=== PATIENT | female | born 1955 | race Caucasian/White ===

== ENCOUNTER → 2016-08-25 | Outpatient (CLI) | payer OTHER ==
--- NOTE | 2016-08-26 11:41 | MM ---
Reason for exam: screening (asymptomatic). Last mammogram was performed 3 years and 11 months ago. History: Patient is postmenopausal. Took estrogen for 8 years beginning at age 43. Physical Findings: A clinical breast exam by your physician is recommended on an annual basis and results should be correlated with mammographic findings. MG Screening Mammo w CAD Bilateral CC and MLO view(s) were taken. Prior study comparison: September 15, 2012, [facility] DIGITAL LEFT BREAST MAMMOGRAM w/CAD. September 06, 2012, bilateral digital screening mammo w/CAD. The breast tissue is heterogeneously dense. This may lower the sensitivity of mammography. There is a distortion in the left upper outer quadrant, increased from previous. This finding is changed when compared with previous exams. ASSESSMENT: Incomplete: need additional imaging evaluation, BI-RAD 0 RECOMMENDATION: Special view mammogram of the left breast. If lesion persists on supplemental views, image directed ultrasound is recommended. [facility] will attempt to contact patient to return for supplemental views and ultrasound if indicated.
--- NOTE | 2016-08-27 13:47 | BD ---
EXAMINATION TYPE: MG DEXA axial skeleton. DATE OF EXAM: 08/25/2016 5:05 PM COMPARISON: NONE CLINICAL HISTORY: 60-year-old female age-related osteoporosis. Weight: 5ft 3inches Weight: 234 FRAX RISK QUESTIONS: Alcohol (3 or more units per day): Yes Family History (Parent hip fracture): Yes Glucocorticoids (More than 3mos): No (Ex: prednisone, prednisolone, methylprednisolone, dexamethasone, and hydrocortisone). History of Fracture in Adulthood: No Secondary Osteoporosis: 1. Type 1 Diabetes: No 2. Hyperthyroidism: No 3. Menopause before 45: Yes 4. Malnutrition: No 5. Chronic liver disease: No Rheumatoid Arthritis: No Current Tobacco Use: No RISK FACTORS HISTORY OF: Family History of Osteoporosis: Yes Drink Alcohol: Yes Active: No Postmenopausal woman: Total Hysterectomy at Age 43. Take estrogen and/or progesterone medications: Took for 10 years after surgery. No longer taken. MEDICATIONS: Additional Medications: LIPITOR, LISINOPRIL, EFFEXOR, PREVACID, GOUT PREVENTATIVE MEDS, APPETITE SUPR ESSANT. Additional History: EXAM MEASUREMENTS: Bone mineral densitometry was performed using the [employer]. Bone mineral density as measured about the Lumbar spine is: ----- L1-L4(G/cm2): 1.135 T Score Values are as follows: ----- L2: -0.6 ----- L3: -0.4 ----- L4: -0.7 ----- L1-L4: -0.4 Bone mineral density has: Increased 9.9% since study of: 2009 Bone mineral density about the R hip (g/cm2): 0.820 Bone mineral density about the L hip (g/cm2): 0.858 T Score values are as follows: -----R Neck: -1.6 -----L Neck: -1.3 -----R Intertrochanter: -0.8 -----L Intertrochanter: -0.4 Bone mineral density has: Increased 3.7 % since study of: 2009 IMPRESSION: Osteopenia as indicated by T score values in both hips. There is slightly increased risk of fracture and the patient may be considered for treatment. Re-Screen 2-5 years. NOTE: T-SCORE=SD OF THE YOUNG ADULT MEAN.
== END | disposition home or self-care (01) ==
LOC: RADBDWWP 16:13
PROVIDERS: ATTEND Internal Medicine Geriatric Medicine
DX: Z12.31 Encounter for screening mammogram for malignant neoplasm of breast (principal); R92.2 Inconclusive mammogram; M85.80 Other specified disorders of bone density and structure, unspecified site
CPT/HCPCS: 77080; G0202

== ENCOUNTER → 2016-09-03 | Outpatient (CLI) | payer OTHER ==
--- NOTE | 2016-09-06 11:37 | MM ---
Reason for exam: additional evaluation requested from abnormal screening. Last mammogram was performed less than 1 month ago. History: Patient is postmenopausal. Took estrogen for 8 years beginning at age 43. Physical Findings: Nurse Summary: A 2 x 4 cm nodule in the left breast 12 - 4 o'clock (nurse ts). MG Work Up Mamm w CAD LT LM, spot compression CC, and spot compression MLO view(s) were taken of the left breast. Prior study comparison: August 25, 2016, bilateral MG screening mammo w CAD. September 15, 2012, [facility] DIGITAL LEFT BREAST MAMMOGRAM w/CAD. Finding: Architectural distortion in the upper outer quadrant of the left breast that persists. These results were verbally communicated with the patient and result sheet given to the patient on 09/03/16. ASSESSMENT: Incomplete: need additional imaging evaluation, BI-RAD 0 RECOMMENDATION: Ultrasound of the left breast.
--- NOTE | 2016-09-06 11:38 | USB ---
Reason for exam: additional evaluation requested from abnormal screening. History: Patient is postmenopausal. Took estrogen for 8 years beginning at age 43. US Breast Workup Limited LT Left breast ultrasound demonstrates a 6.3 x 3.7 x 2.6cm solid, hypoechoic, strong shadowing lesion at 2-5 o'clock. These results were verbally communicated with the patient and result sheet given to the patient on 09/03/16. ASSESSMENT: Highly suggestive of malignancy, BI-RAD 5 RECOMMENDATION: Ultrasound core biopsy of the left breast. Called Dr. Comer with mammographic findings and has scheduled an appointment for the patient for 09/14/16 at 12:[address] Melendez. PRELIMINARY REPORT CALLED AND FAXED TO DR. MELENDEZ ON 09/06/16. AT 300/TMP.
== END | disposition home or self-care (01) ==
LOC: RADMAMWWP 13:52
PROVIDERS: ATTEND Internal Medicine Geriatric Medicine
DX: R92.2 Inconclusive mammogram (principal); R92.8 Other abnormal and inconclusive findings on diagnostic imaging of breast
CPT/HCPCS: 76642; G0206

== ENCOUNTER → 2016-09-17 | Day surgery (SDC) | payer OTHER ==
[~2016-09-17] MED LIST: BACITRACIN OINT 1 EACH PACKET TOPICAL ONE; LIDOCAINE 1% INJ 10MG/ML (20 ML MDV) ONE
--- NOTE | 2016-09-17 10:29 | USB ---
EXAMINATION TYPE: US biopsy breast VAD LT, US biopsy breast add'l VAD LT, MG diagnostic mammo LT wo CAD DATE OF EXAM: 09/17/2016 10:13 AM CLINICAL HISTORY: R92.8 Abn Mammogram. TECHNIQUE: Ultrasound guided core biopsy of left breast mass 2-5 position as well as an abnormal-appearing left axillary lymph node. COMPARISON: NONE FINDINGS: The procedure of ultrasound guided core biopsy was explained to the patient. Benefits, alternatives, and risks were discussed. An informed consent was then obtained. The patient was placed in supine positioning for imaging and for the procedure. The overlying skin was prepped and draped in usual sterile fashion. Lidocaine buffered with bicarbonate was used as anesthetic into the skin and subcutaneous tissue up to areas of concern in the left breast. 2 nicks were made with surgical scalpel. Under ultrasound guidance, a 12-gauge vacuum assisted biopsy gun device was used to obtain 4 core samples at the left breast mass followed by 3 core samples of abnormal-appearing left axillary lymph node. 2 biopsy clips were deployed following tissue diagnosis. Verification mammogram demonstrates appropriate deployment. The patient tolerated the procedure well without any immediate complication. The patient was kept in the radiology department for short stay after the procedure and then discharged home in stable condition. IMPRESSION: Successful, uncomplicated ultrasound guided core biopsy of areas of concern in the left breast and left axilla, full pathology results to follow. Pathology Results: Malignant A. BREAST, LEFT, CORE BIOPSY: INVASIVE LOBULAR CARCINOMA AND LOBULAR CARCINOMA IN SITU (LCIS). SEE SURGICAL PATHOLOGY CANCER CASE SUMMARY AND COMMENT. B. LEFT AXILLA, CORE BIOPSY: LYMPH ODE POSITIVE FOR METASTATIC CARCINOMA CONSISTENT WITH LOBULAR BREAST PRIMARY. SEE COMMENT. Recommendation Surgical consult of the left breast. DIAMOND
== END ==
LOC: RADUSWWP 09:00
PROVIDERS: ATTEND Surgery
DX: C50.912 Malignant neoplasm of unspecified site of left female breast (principal); C77.3 Secondary and unspecified malignant neoplasm of axilla and upper limb lymph nodes; R92.8 Other abnormal and inconclusive findings on diagnostic imaging of breast
CPT/HCPCS: 38505; 88305; 88342; 88341; 76942; 19083; G0206; A4648; J2001; 19084

== ENCOUNTER → 2016-10-09 | Outpatient (CLI) | payer OTHER ==
--- NOTE | 2016-10-11 09:05 | PE ---
Nuclear medicine PET/CT HISTORY: Breast carcinoma Patient received 14.6 mCi F-18 FDG intravenously and delayed scanning performed from the skull base t o the mid thighs. Localization and attenuation correction CT scan was also performed. Correlation to prior ultrasound breast 09/03/2016 Neck and chest: There is no evident adenopathy. No suspicious hypermetabolic uptake. No suspicious marycruz ng mass, no pleural or pericardial effusion. Shotty nodes are present within the bilateral axilla, me diastinum. Only mild increased uptake associated with the left breast in the area of patient's biopsy compatible with breast carcinoma, SUV is 2. Abdomen pelvis: No retroperitoneal adenopathy, no evident liver mass. Patient is post cholecystectomy . No suspicious hypermetabolic uptake. Left adrenal mass shows low attenuation and measures approxima tely 5 cm and may represent adenoma, only mild hypermetabolic uptake. Probable physiologic activity associated with the colon. Osseous structures within normal limits. IMPRESSION: Findings compatible with patient's history of breast carcinoma.
== END | disposition home or self-care (01) ==
LOC: RADPETMAIN 13:56
PROVIDERS: ATTEND Internal Medicine Hematology & Oncology
DX: C50.919 Malignant neoplasm of unspecified site of unspecified female breast (principal)
CPT/HCPCS: 78815; A9552

== ENCOUNTER → 2017-10-21 | Outpatient (CLI) | payer OTHER ==
--- NOTE | 2017-10-21 16:29 | CT ---
EXAMINATION TYPE: CT ChestAbdPelvis w con DATE OF EXAM: 10/21/2017 COMPARISON: Nuclear medicine PET/CT 10/09/2016 HISTORY: Breast Cancer, suspect mets CT DLP: 2233 mGycm Automated exposure control for dose reduction was used. CONTRAST: CT scan of the chest, abdomen and pelvis is performed with Oral Contrast and with IV Contrast, patien t injected with 100 ml mL of Isovue 300. FINDINGS: Left chest shows posttreatment changes with skin thickening in the left breast, multiple bermudez rgical clips, low-attenuation lobular configuration likely secondary to lumpectomy change. Stranding in the soft tissues also noted. Left axilla shows probable post biopsy change. LUNGS: In the region of the patient's treated breast cancer there is some increased density in the bermudez bpleural location of the left upper lobe which is thought likely to be due to post radiation change. No pleural or pericardial effusion. MEDIASTINUM: There are no greater than 1 cm hilar or mediastinal lymph nodes. No pericardial effusi on is seen. AORTA: No significant abnormality is seen. OTHER: No additional significant abnormality is seen. LIVER/GB: Liver shows low attenuation likely due to hepatic steatosis, the gallbladder is absent, maanda gical clips present in the gallbladder fossa PANCREAS: No significant abnormality is seen. SPLEEN: No significant abnormality is seen. ADRENALS: Large low-attenuation mass associated with the left adrenal gland measures 5.5 cm similar t o prior exam felt likely to represent adenoma, right adrenal gland unremarkable KIDNEYS: Cortical cyst is associated with the right kidney is stable. REPRODUCTIVE ORGANS: Uterus and adnexal structures are not seen.. BOWEL: Duodenal diverticulum present at the head of the pancreas. Appendix is normal. FREE AIR: No Free Air visible. ASCITES: None seen. RETROPERITONEAL ADENOPATHY: No retroperitoneal adenopathy is seen. LYMPH NODES: No greater than 1 cm abdominal or pelvic lymph nodes are appreciated. URINARY BLADDER: No significant abnormality is seen. PELVIC ADENOPATHY: None visualized. OSSEOUS STRUCTURES: Punctate sclerotic foci are scattered within areas within the pelvis and sternum appear stable and are likely benign postop change noted to the left shoulder.. IMPRESSION: Postop changes, posttreatment changes. Metastatic disease is not evident..
== END | disposition home or self-care (01) ==
LOC: RADCTMAIN 07:24
PROVIDERS: ATTEND Internal Medicine Hematology & Oncology
DX: C50.412 Malignant neoplasm of upper-outer quadrant of left female breast (principal); Z98.890 Other specified postprocedural states
CPT/HCPCS: 71260; 74177; Q9967

== ENCOUNTER → 2017-11-25 | Outpatient (CLI) | payer OTHER ==
--- NOTE | 2017-11-28 09:44 | MM ---
Reason for exam: additional evaluation requested from prior study. Last mammogram was performed 1 year and 2 months ago. History: Patient is postmenopausal and has history of breast cancer at age 60. Malignant US biopsy breast VAD LT of the left breast, September 17, 2016. Malignant US biopsy breast add'l VAD LT of the left breast, September 17, 2016. Lumpectomy of the left breast. Radiation therapy of the left breast. Took estrogen for 8 years beginning at age 43. Physical Findings: Nurse Summary: 1 x 1cm nodule in the right breast at 2 o'clock/chemo port scar (nurse ts). MG 3D Diag Mammo W/Cad [facility] Bilateral CC and MLO view(s) were taken. Prior study comparison: September 17, 2016, left breast MG diagnostic mammo LT wo CAD. September 03, 2016, left breast MG work up mamm w CAD LT. The breast tissue is heterogeneously dense. This may lower the sensitivity of mammography. Finding: Architectural distortion in the upper outer quadrant, posterior position of the left breast. 10mm developing asymmetry posterior upper inner quadrant. These results were verbally communicated with the patient and result sheet given to the patient on 11/25/17. ASSESSMENT: Incomplete: need additional imaging evaluation, BI-RAD 0 RECOMMENDATION: Ultrasound of the right breast.
--- NOTE | 2017-11-28 09:48 | USB ---
Reason for exam: additional evaluation requested from abnormal screening. History: Patient is postmenopausal and has history of breast cancer at age 60. Malignant US biopsy breast VAD LT of the left breast, September 17, 2016. Malignant US biopsy breast add'l VAD LT of the left breast, September 17, 2016. Lumpectomy of the left breast. Radiation therapy of the left breast. Took estrogen for 8 years beginning at age 43. US Breast Limited RT Right limited breast ultrasound including focal area of concern, retroareolar and axilla demonstrates a 0.8 x 0.9 x 0.4cm oval, cystic complex lesion at 2 o'clock for which a FNA +/- biopsy is recommended and a 0.4 x 0.3 x 0.3cm oval, cystic lesion at 3 o'clock is recommended. These results were verbally communicated with the patient and result sheet given to the patient on 11/25/17. ASSESSMENT: Suspicious, BI-RAD 4 RECOMMENDATION: Ultrasound core biopsy of the right breast. (+/- FNA) Called Dr. Comer with mammographic findings and has scheduled an appointment for the patient with Dr. Richardson Flores. Biopsy scheduled for 12/08/17 at 12:20. PRELIMINARY REPORT CALLED AND FAXED TO DR. FLORES ON 11/28/17.
== END | disposition home or self-care (01) ==
LOC: RADMAMWWP 10:18
PROVIDERS: ATTEND Internal Medicine Geriatric Medicine
DX: C50.112 Malignant neoplasm of central portion of left female breast (principal); R92.8 Other abnormal and inconclusive findings on diagnostic imaging of breast
CPT/HCPCS: 77062; 77066

== ENCOUNTER → 2017-12-08 | Day surgery (SDC) | payer OTHER ==
[2017-12-08 11:53] VITALS: RESP 16; BMI 40.5
[2017-12-08 13:40] VITALS: BP 141/83; PULSE 70; TEMP 97.9
--- NOTE | 2017-12-08 16:31 | USB ---
EXAMINATION TYPE: US biopsy breast VAD RT DATE OF EXAM: 12/08/2017 CLINICAL HISTORY: R92.8 Abnormal Mammogram. TECHNIQUE: Ultrasound guided core biopsy of right breast. COMPARISON: 11/25/2017 FINDINGS: The procedure of ultrasound guided core biopsy was explained to the patient. Benefits, alternatives, and risks were discussed. An informed consent was then obtained. The patient was placed in supine positioning for imaging and for the procedure. The overlying skin was prepped and draped in usual sterile fashion. Lidocaine buffered with bicarbonate was used as anesthetic into the skin and subcutaneous tissue up to area of concern in the right breast. A jayro was made with surgical scalpel. Under ultrasound guidance, a 12-gauge vacuum assisted biopsy device was used to obtain 4 core samples. Following this, a biopsy clip was left in lesion. The patient tolerated the procedure well without any immediate complication. The patient was kept in the radiology department for short stay after the procedure and then discharged home in stable condition. Surgery reconstructions were discussed with the patient. Patient will follow-up with her physician for results. IMPRESSION: 1. Successful ultrasound-guided core biopsy right breast lesion. Recommendations: 1. Recommendations are pending pathology results. Pathology Results: Benign CORE BIOPSY, RIGHT BREAST: Fat necrosis with chronic active inflammation, foreign body reaction and fibrosis, negative for malignancy. Recommendation Follow up mammogram of the right breast in 6 months. DIAMOND
--- NOTE | 2017-12-09 08:14 | MM ---
Reason for exam: additional evaluation requested from abnormal screening. Last mammogram was performed less than 1 month ago. History: Patient is postmenopausal and has history of breast cancer at age 60. Malignant US biopsy breast VAD LT of the left breast, September 17, 2016. Malignant US biopsy breast add'l VAD LT of the left breast, September 17, 2016. Lumpectomy of the left breast. Radiation therapy of the left breast. Took estrogen for 8 years beginning at age 43. MG Diagnostic Mammo RT Wo CAD CC and LM view(s) were taken of the right breast. Technologist: Devi Alvarez, RT (R)(M) Prior study comparison: November 25, 2017, bilateral MG 3d diag mammo w/cad [facility]. September 17, 2016, left breast MG diagnostic mammo LT wo CAD. ASSESSMENT: Post procedure mammogram for marker placement RECOMMENDATION: Ultrasound of the right breast in 6 months. PENDING PATHOLOGY RESULTS.
== END | disposition home or self-care (01) ==
LOC: RADUSWWP 11:19
PROVIDERS: ATTEND Surgery
DX: N64.1 Fat necrosis of breast (principal); N60.31 Fibrosclerosis of right breast; N61.0 Mastitis without abscess; Z85.3 Personal history of malignant neoplasm of breast; R92.8 Other abnormal and inconclusive findings on diagnostic imaging of breast
CPT/HCPCS: 88305; 77065; 19083; A4648; J2001

== ENCOUNTER → 2018-02-13 | Outpatient (CLI) | payer OTHER ==
[2018-02-13 14:50] LABS: ALT 33 U/L (9-52); AST 26 U/L (14-36); Albumin 4.2 g/dL (3.5-5.0); Alkaline Phosphatase 107 U/L (38-126); Anion Gap 9 mmol/L; Blood Urea Nitrogen 17 mg/dL (7-17); Calcium 9.5 mg/dL (8.4-10.2); Carbon Dioxide 27 mmol/L (22-30); Chloride 106 mmol/L (98-107); Glucose 95 mg/dL (74-99); Potassium 4.2 mmol/L (3.5-5.1); Sodium 142 mmol/L (137-145); Total Bilirubin 0.3 mg/dL (0.2-1.3); Total Protein 6.8 g/dL (6.3-8.2)
== END | disposition home or self-care (01) ==
LOC: LABWHC1 13:34
PROVIDERS: ATTEND Internal Medicine Hematology & Oncology
DX: C50.412 Malignant neoplasm of upper-outer quadrant of left female breast (principal); E78.5 Hyperlipidemia, unspecified; I10 Essential (primary) hypertension; M12.9 Arthropathy, unspecified
CPT/HCPCS: 36415; 80053; 86300

== ENCOUNTER → 2018-05-12 | Outpatient (CLI) | payer OTHER ==
[2018-05-12 12:23] LABS: Basophils % (A) 1 %; Eosinophils # (A) 0.2 k/uL (0-0.7); Eosinophils % (A) 3 %; HCT 43.3 % (34.0-46.0); HGB 13.8 gm/dL (11.4-16.0); Lymphocytes # (A) 1.3 k/uL (1.0-4.8); Lymphocytes % (A) 21 %; MCHC 31.8 g/dL (31.0-37.0); MCV 97.6 fL (80.0-100.0); Mean Platelet Volume 7.2; Monocytes # (A) 0.4 k/uL (0-1.0); Monocytes % (A) 7 %; Neutrophils # (A) 4.1 k/uL (1.3-7.7); Neutrophils % (A) 67 %; Platelet Count 245 k/uL (150-450); RBC 4.44 m/uL (3.80-5.40); RDW 13.6 % (11.5-15.5); WBC 6.1 k/uL (3.8-10.6)
[2018-05-12 16:02] LABS: Albumin 4.5 g/dL (3.80-4.90); Albumin/Globulin Ratio 2.37 (1.20-2.10); Calcium 9.5 mg/dL (8.7-10.3); Globulin 1.9 g/dL (1.6-3.3); LDL Cholesterol,Calculated 102.4 mg/dL (0.0-131.0); Potassium 4.5 mmol/L (3.5-5.5); Total Bilirubin 0.3 mg/dL (0.2-1.2); Total Protein 6.4 g/dL (6.2-8.2); VLDL Calculation 28.6 mg/dL (5.00-40.00)
[2018-05-12 16:08] LABS: T4, Free (Free Thyroxine) 1.1 ng/dL (0.80-1.80)
== END | disposition home or self-care (01) ==
LOC: LABWHC1 10:47
PROVIDERS: ATTEND Internal Medicine Geriatric Medicine
DX: C50.112 Malignant neoplasm of central portion of left female breast (principal); R00.1 Bradycardia, unspecified; E78.00 Pure hypercholesterolemia, unspecified
CPT/HCPCS: 36415; 80053; 80061; 84439; 84443; 85025

== ENCOUNTER → 2018-05-22 | Outpatient (CLI) | payer OTHER ==
--- NOTE | 2018-05-26 11:42 | USB ---
Reason for exam: follow-up at short interval from prior study. History: Patient is postmenopausal and has history of breast cancer at age 60. Benign US biopsy breast VAD RT of the right breast, December 08, 2017. Malignant US biopsy breast VAD LT of the left breast, September 17, 2016. Malignant US biopsy breast add'l VAD LT of the left breast, September 17, 2016. Lumpectomy of the left breast. Radiation therapy of the left breast. Took estrogen for 8 years beginning at age 43. Physical Findings: Nurse did not find any significant physical abnormalities on exam. US Breast RT Right complete breast ultrasound includes all four quadrants, the retroareolar region and axilla. Finding demonstrates No cystic or solid lesion seen. No suspicious sonographic finding. These results were verbally communicated with the patient and result sheet given to the patient on 05/22/18. ASSESSMENT: Negative, BI-RAD 1 RECOMMENDATION: Routine screening mammogram of both breasts in 6 months. Patient davonte be due for her annual bilateral screening mammogram in November 2018.
== END ==
LOC: RADUSWWP 15:31
PROVIDERS: ATTEND Radiology Radiation Oncology
DX: C50.412 Malignant neoplasm of upper-outer quadrant of left female breast (principal); Z87.891 Personal history of nicotine dependence; Z92.3 Personal history of irradiation

== ENCOUNTER → 2018-06-13 | Outpatient (CLI) | payer OTHER ==
--- NOTE | 2018-06-13 14:31 | MM ---
Reason for exam: follow-up at short interval from prior study. Last mammogram was performed 6 months ago. History: Patient is postmenopausal and has history of breast cancer at age 60. Benign US biopsy breast VAD RT of the right breast, December 08, 2017. Malignant US biopsy breast VAD LT of the left breast, September 17, 2016. Malignant US biopsy breast add'l VAD LT of the left breast, September 17, 2016. Lumpectomy of the left breast. Radiation therapy of the left breast. Took estrogen for 8 years beginning at age 43. Physical Findings: Nurse did not find any significant physical abnormalities on exam. MG 3D Diag Mammo W/Cad RT CC and MLO view(s) were taken of the right breast. Prior study comparison: December 08, 2017, right breast MG diagnostic mammo RT wo CAD. November 25, 2017, bilateral MG 3d diag mammo w/cad [facility]. There are scattered fibroglandular densities. Previous mammotome biopsy in the right breast. No significant new findings when compared with previous films. These results were verbally communicated with the patient and result sheet given to the patient on 06/13/18. ASSESSMENT: Benign, BI-RAD 2 RECOMMENDATION: Follow-up diagnostic mammogram of both breasts in 6 months. Back on schedule.
== END | disposition home or self-care (01) ==
LOC: RADMAMWWP 13:45
PROVIDERS: ATTEND Internal Medicine Hematology & Oncology
DX: R92.8 Other abnormal and inconclusive findings on diagnostic imaging of breast (principal); Z85.3 Personal history of malignant neoplasm of breast
CPT/HCPCS: 77061; 77065

== ENCOUNTER → 2018-09-13 | Outpatient (CLI) | payer OTHER ==
--- NOTE | 2018-09-13 16:37 | BD ---
EXAMINATION TYPE: Axial Bone Density DATE OF EXAM: 09/13/2018 COMPARISON: 2017 CLINICAL HISTORY: 62-year-old female osteopenia Height: 5'3 Weight: 249 FRAX RISK QUESTIONS: Family History (Parent hip fracture): y Secondary Osteoporosis: 3. Menopause before 45: y RISK FACTORS HISTORY OF: History of Wrist Fracture: left When: child Family History of Osteoporosis: y Active: n Diet low in dairy products/other sources of calcium: y Postmenopausal woman: y MEDICATIONS: Additional Medications: hormone kavon 2017,2018, Lipitor, gout, blood pressure, anti depressant Additional History: chem and radiation EXAM MEASUREMENTS: Bone mineral densitometry was performed using the [employer]. Bone mineral density as measured about the Lumbar spine is: ----- L1-L4(G/cm2): 1.043 T Score Values are as follows: ----- L2: -1.1 ----- L3: -1.3 ----- L4: -2.0 ----- L1-L4: -1.1 Bone mineral density has: Decreased -9.6% since study of: 08/25/2016 Bone mineral density about the R hip (g/cm2): 0.827 Bone mineral density about the L hip (g/cm2): 0.807 T Score values are as follows: -----R Neck: -1.5 -----L Neck: -1.7 -----R Total: -1.0 -----L Total: -0.7 Bone mineral density has: Decreased -3.0% since study of: 08/25/2016 IMPRESSION: Osteopenia (T Score between -2.5 and -1). There is slightly increased risk of fracture and the patient may be considered for treatment. Re-Screen 2-5 years. NOTE: T-SCORE=SD OF THE YOUNG ADULT MEAN.
== END | disposition home or self-care (01) ==
LOC: RADBDWWP 12:35
PROVIDERS: ATTEND Internal Medicine Hematology & Oncology
DX: M85.851 Other specified disorders of bone density and structure, right thigh (principal); M85.852 Other specified disorders of bone density and structure, left thigh; M85.88 Other specified disorders of bone density and structure, other site; C50.412 Malignant neoplasm of upper-outer quadrant of left female breast
CPT/HCPCS: 77080

== ENCOUNTER → 2018-10-14 | Outpatient (CLI) | payer OTHER ==
--- NOTE | 2018-10-16 19:16 | PE ---
EXAMINATION TYPE: PET CT fusion skull to thigh DATE OF EXAM: 10/14/2018 CLINICAL HISTORY: 62 year-old female restaging left breast cancer status post chemotherapy completed in 2017 and radiation therapy completed in 2018. Surgery in 2017. TECHNIQUE: Following the intravenous administration of 11.47 mCi of F-18 FDG, whole body images are performed from the skull base to the midthigh. Images are reviewed on the computer in the coronal, axial, and sagittal planes. Reconstructed rotating images are created on independent workstation and reviewed on the computer. A localization and attenuation correction CT is performed in conjunction with the PET scan. Glucose level: 97 mg/dL CTDI: 5.32 mGy DLP: 473.07 mGy/cm COMPARISON: 10/21/2017 and 10/09/2016 FINDINGS: PET: Physiologic FDG uptake within the neck. Postsurgical and posttreatment changes of the left breast with Biozorb device in place. There is an a ssociated postoperative seroma slightly larger now measuring 3.8 x 3.4 cm versus 3.8 x 2.1 cm, previo usly. There is associated mild uptake, SUV 2.1. There is focal area of moderate uptake, max SUV 3.8 involving the right posterior T7 vertebral body. CT shows corresponding small area of lucency in this region, new from prior exam, refer to axial imag e 97. Otherwise, physiologic FDG uptake within the chest. Average liver SUV of 2.4. Stable 4.7 cm low density mass of the left adrenal gland showing attenuation of 0.8 Hounsfield units and no significant FDG uptake. Findings most compatible with a benign adrenal adenoma. Some excreting FDG seen within the right greater than left ureters and segmental right colonic uptake , likely physiologic. Focal intense FDG uptake within the soft tissues adjacent to the lateral aspect of the left greater t rochanter, max SUV 5.[address] abnormality[address] ATTENUATION CORRECTION CT: Stable mucosal retention cyst floor right maxillary sinus. Mastoid air cells are well pneumatized. No cervical lymphadenopathy. Heart normal size with coronary vessel calcifications. Aorta normal caliber with bovine configuration to the aortic arch. No thoracic lymphadenopathy. Evaluation of the lungs shows some subpleural reti cular change anterior left midlung compatible post treatment change. No consolidation or pleural effu fabiola. Cholecystectomy clips. No dilated small bowel, free fluid, or free air. No mesenteric or retroperiton eal lymphadenopathy. Sigmoid diverticulosis without pericolonic inflammatory change. Bladder partially distended. Uterus surgically absent. No abnormal fluid collection in the pelvis or pelvic lymphadenopathy seen. Bones: Mild degenerative changes in hips and facet arthropathy lower lumbar spine. Endplate spondylos is mid to lower thoracic spine and facet arthropathy. Suture anchors at the left humeral head from pr ior cuff repair. IMPRESSION: 1. Postlumpectomy and postradiation changes involving the left breast. There is an associated postope rative seroma which is slightly larger now measuring 3.8 x 3.4 cm without suspicious FDG uptake here. 2. However, there is a new focal area of moderate uptake involving the T7 vertebral body with corresp onding lucency on CT. A new solitary bone metastasis is considered. 3. Focal intense uptake within the soft tissues adjacent to the left greater trochanter most likely c orresponds to insertional gluteal tendinopathy. Correlate for any musculoskeletal pain in this region . A soft tissue metastasis is a less likely consideration. The site can be followed clinically. 4. Incidental: Stable 4.7 cm left adrenal adenoma and sigmoid diverticulosis.
== END | disposition home or self-care (01) ==
LOC: RADPETMAIN 09:31
PROVIDERS: ATTEND Internal Medicine Hematology & Oncology
DX: C50.412 Malignant neoplasm of upper-outer quadrant of left female breast (principal); R93.7 Abnormal findings on diagnostic imaging of other parts of musculoskeletal system
CPT/HCPCS: 78815; A9552

== ENCOUNTER → 2018-10-23 | Outpatient (CLI) | payer OTHER ==
--- NOTE | 2018-10-23 16:02 | MR ---
MR thoracic spine with and without contrast HISTORY: Breast cancer, abnormal PET/CT Multiplanar multisequence and postcontrast images through the thoracic spine following 12 cc Gadavist IV Correlation to nuclear medicine PET/CT 10/14/2018 At the posterior margin of the T7 vertebral body there is a focus of intermediate signal on T1, T2-we ighted images and shows enhancement following contrast administration, similar-appearing focus is pre sent at the T10 vertebral body anteriorly, each measuring approximately 12 to 13 mm. There are foci o f increased signal on T1 and T2-weighted sequences within multiple vertebral bodies include T10, T3, inferior margin of T12 which likely represent hemangiomas. There is multilevel spondylosis with endpl ate discogenic marrow signal change. Loss of disc height signal present at the intervertebral levels compatible disc desiccation and degenerative disc disease. The thoracic cord signal is maintained. Th ere is no significant spinal stenosis or foraminal encroachment. No sizable disc herniation. IMPRESSION: Findings suspicious for bony metastatic disease to the thoracic spine as described. Degen erative disc disease.
== END | disposition home or self-care (01) ==
LOC: RADMRIMAIN 14:08
PROVIDERS: ATTEND Internal Medicine Hematology & Oncology
DX: C50.412 Malignant neoplasm of upper-outer quadrant of left female breast (principal); R93.89 Abnormal findings on diagnostic imaging of other specified body structures
CPT/HCPCS: 72157; A9585

== ENCOUNTER → 2018-11-27 | Outpatient (CLI) | payer OTHER ==
--- NOTE | 2018-11-28 09:07 | MM ---
Reason for exam: follow-up at short interval from prior study. Last mammogram was performed 6 months ago. History: Patient is postmenopausal and has history of breast cancer at age 60. Benign US biopsy breast VAD RT of the right breast, December 08, 2017. Malignant US biopsy breast VAD LT of the left breast, September 17, 2016. Malignant US biopsy breast add'l VAD LT of the left breast, September 17, 2016. Lumpectomy of the left breast. Radiation therapy of the left breast. Took estrogen for 8 years beginning at age 43. Physical Findings: Nurse did not find any significant physical abnormalities on exam. MG 3D Diag Mammo W/Cad HILARIO Bilateral CC and MLO view(s) were taken. Prior study comparison: June 13, 2018, right breast MG 3d diag mammo w/cad RT. December 08, 2017, right breast MG diagnostic mammo RT wo CAD. The breast tissue is heterogeneously dense. This may lower the sensitivity of mammography. Stable benign calcifications. Previous mammotome biopsy in the right breast. Stable post operative changes in the left breast. No significant new findings when compared with previous films. These results were verbally communicated with the patient and result sheet given to the patient on 11/27/18. ASSESSMENT: Benign, BI-RAD 2 RECOMMENDATION: Follow-up diagnostic mammogram of both breasts in 1 year.
== END | disposition home or self-care (01) ==
LOC: RADMAMWWP 12:59
PROVIDERS: ATTEND Radiology Radiation Oncology
DX: C50.412 Malignant neoplasm of upper-outer quadrant of left female breast (principal); Z92.3 Personal history of irradiation; Z87.891 Personal history of nicotine dependence
CPT/HCPCS: 77062; 77066

== ENCOUNTER 2018-12-05 10:51 | Emergency (ER) | payer OTHER ==
--- NOTE | 2018-12-05 12:52 | XR ---
EXAMINATION TYPE: XR thoracic spine 2V DATE OF EXAM: 12/05/2018 CLINICAL HISTORY: Left-sided rib pain and back pain after coughing. History of rib biopsy. TECHNIQUE: Frontal, lateral, and swimmer's view of thoracic spine are obtained. COMPARISON: None. FINDINGS: Thoracic spine show satisfactory alignment without evidence of acute fracture or dislocatio n. Moderate multilevel degenerative disc disease of the thoracic spine is seen as intervertebral dis c space narrowing and small interosseous heights. Vertebral body heights are preserved. Visualized ri bs are unremarkable. IMPRESSION: No acute fracture or malalignment is seen in the thoracic spine. Note the previously seen lucent lesion of the T7 vertebral body on prior PET/CT of 10/14/2018 and the punctate abnormal focus o f the T10 vertebral body on the MRI dated 10/23/2018 are not seen on x-ray. These were suspicious for osseous metastasis on the prior exams.
--- NOTE | 2018-12-05 12:55 | XR ---
EXAMINATION TYPE: XR ribs LT w pa chest xray DATE OF EXAM: 12/05/2018 CLINICAL HISTORY: Left-sided rib pain after coughing this morning. History of left rib biopsy. TECHNIQUE: Single frontal view of the chest is obtained. COMPARISON: None FINDINGS: Surgical clips are seen within the left breast tissue from prior lumpectomy. Surgical broderick e of the acromio clavicular joints and left humerus are noted. The known probable metastatic foci of the T7 and T10 vertebral bodies are not well seen on x-ray. There is some increased density of the IMPRESSION: 1. No acute cardiopulmonary process. 2. No acute displaced left rib fracture. 3. Increased density of the pedicle of T6 on the right. Nuclear medicine bone considered on a nonemer gent basis given the known probable metastatic foci at T10 and T7 seen on the prior MRI of 10/23/2018.
--- NOTE | 2018-12-05 13:16 | ED ---
Back Pain HPI - General Chief Complaint: Back Pain/Injury Stated Complaint: Back Pain Time Seen by Provider: 12/05/18 11:32 Source: patient Limitations: no limitations - History of Present Illness Initial Comments: Patient is a 63-year-old female who since the emergency Department with complaints of left-sided rib pain 2 hours. Patient has past medical history of breast cancer with possible metastases to her thoracic spine. Patient had a C7 bone biopsy performed 4 days ago at [facility]. Patient states she had some associated rib soreness from the procedure but then this morning she was standing and coughed and has been having severe left-sided rib pain since then. Patient says she tried taking Motrin for the pain but it has not helped. Patient denies any trauma or falls. Patient denies fever, chills, nausea, vomiting. No other complaints at this time. - Related Data Home Medications Medication Instructions Recorded Confirmed Allopurinol [Zyloprim] 300 mg PO DAILY 11/03/16 12/05/18 Atorvastatin Calcium [Lipitor] 10 mg PO DAILY 11/03/16 12/05/18 Lansoprazole [Prevacid] 15 mg PO DAILY 11/03/16 12/05/18 Venlafaxine HCl ER [Effexor Xr] 75 mg PO DAILY 11/03/16 12/05/18 Letrozole [Femara] 2.5 mg PO DAILY 12/01/17 12/05/18 Ibuprofen [Motrin Ib] 800 mg PO Q6H PRN 12/05/18 12/05/18 Lisinopril [Zestril] 40 mg PO DAILY 12/05/18 12/05/18 predniSONE See Taper PO DAILY 12/05/18 12/05/18 Previous Rx's Medication Instructions Recorded Cyclobenzaprine [Flexeril] 5 mg PO TID PRN #15 tablet 12/05/18 Hydrocodone/Acetaminophen [Vida 1 tab PO Q6HR PRN #10 tab 12/05/18 5-325] Allergies Allergy/AdvReac Type Severity Reaction Status Date / Time No Known Allergies Allergy Verified 12/05/18 11:35 Review of Systems ROS Statement: Those systems with pertinent positive or pertinent negative responses have been documented in the HPI. ROS Other: All systems not noted in ROS Statement are negative. Past Medical History Past Medical History: Cancer, Hyperlipidemia, Hypertension Additional Past Medical History / Comment(s): left breast cancer, gout, arthritis in knee History of Any Multi-Drug Resistant Organisms: None Reported Past Surgical History: Breast Surgery, Cholecystectomy, Hysterectomy, Orthopedic Surgery Additional Past Surgical History / Comment(s): Knee scope. Left rotator cuff repair. Right arm tendon release. Lasik eye surgery. Left breast lumpectomy 2017 Past Anesthesia/Blood Transfusion Reactions: No Reported Reaction Past Psychological History: No Psychological Hx Reported Smoking Status: Former smoker Past Alcohol Use History: Occasional Past Drug Use History: None Reported General Exam - General Exam Comments Initial Comments: GENERAL: Well-appearing, well-nourished and in no acute distress, but appears to be in pain. HEAD: Atraumatic, normocephalic. EYES: Pupils equal round and reactive to light, extraocular movements intact, sclera anicteric, conjunctiva are normal. ENT: TMs normal, nares patent, oropharynx clear without exudates. Moist mucous membranes. NECK: Normal range of motion, supple without lymphadenopathy or JVD. LUNGS: Breath sounds clear to auscultation bilaterally and equal. No wheezes rales or rhonchi. HEART: Regular rate and rhythm without murmurs, rubs or gallops. ABDOMEN: Soft, nontender, normoactive bowel sounds. No guarding, no rebound. No masses appreciated. : Deferred EXTREMITIES: Normal range of motion, no pitting or edema. No clubbing or cyanosis. Patient had tenderness to palpation of the left rib area. No signs of erythema, edema. Patient has significant pain with trunk range of motion. NEUROLOGICAL: Cranial nerves II through XII grossly intact. Normal speech, normal gait. PSYCH: Normal mood, normal affect. SKIN: Warm, Dry, normal turgor, no rashes or lesions noted. Bone biopsy incision point has no signs of infection. Limitations: no limitations Course Vital Signs 12/05/18 12/05/18 11:17 13:29 Temperature 99.5 F 98.9 F Pulse Rate 89 84 Respiratory 18 15 Rate Blood Pressure 161/79 158/82 O2 Sat by Pulse 96 98 Oximetry Medical Decision Making - Medical Decision Making Patient is a 63-year-old female with left rib pain 2 hours. Patient has recent history of breast cancer with possible metastases to the thoracic spine. Patient recently had a C7 bone biopsy performed 4 days ago at [facility]. Patient states she's been having some bilateral rib pain since the procedure but states she stood up this morning and coughed and has been having left-sided severe rib pain 2 hours. On exam, patient is tender to palpation of left rib area. There are no signs of infection on the skin or around the bone biopsy insertion point. X-rays of the thoracic spine and left ribs show no acute fractures or dislocations. They do show possible metastases that were shown on thoracic MRI. Patient is aware of these findings. Patient was given a trial of muscle relaxer and a short course of Vida for pain relief. Patient will follow-up with her orthopedic doctor as needed for pain relief. Patient is in agreement with this plan and is ready to be discharged home. Case discussed with Dr. Ramachandran. Return parameters were discussed with the patient she verbalized understanding. Disposition Clinical Impression: Rib pain on left side Disposition: HOME SELF-CARE Condition: Stable Instructions (If sedation given, give patient instructions): Costochondritis (ED) Additional Instructions: Please return to the Emergency Department if symptoms worsen or any other concerns. Follow-up with orthopedic as discussed. Prescriptions: Cyclobenzaprine [Flexeril] 5 mg PO TID PRN #15 tablet PRN Reason: Muscle Spasm Hydrocodone/Acetaminophen [Vida 5-325] 1 tab PO Q6HR PRN #10 tab PRN Reason: Pain Is patient prescribed a controlled substance at d/c from ED?: Yes When asked, does pt state using other controlled substances?: No If prescribed controlled substance>3 days was MAPS reviewed?: Prescribed <3 Days If opioid is for acute pain is fill amount 7 days or less?: Yes If Rx opioid, was Start Talking consent form obtained?: Yes Referrals: Fer Comer MD [Primary Care Provider] - 1-2 days
[2018-12-05 13:32] VITALS: BP 158/82; PULSE 84; RESP 15; TEMP 98.9
== END 2018-12-05 13:29 | disposition home or self-care (01) ==
LOC: EC 10:51
DX: R07.81 Pleurodynia (principal); E78.5 Hyperlipidemia, unspecified; I10 Essential (primary) hypertension; Z79.51 Long term (current) use of inhaled steroids; Z79.899 Other long term (current) drug therapy; Z87.891 Personal history of nicotine dependence; Z85.3 Personal history of malignant neoplasm of breast
CPT/HCPCS: 72070; 99283

== ENCOUNTER → 2019-02-16 | Outpatient (CLI) | payer OTHER ==
--- NOTE | 2019-02-19 07:18 | PE ---
EXAMINATION TYPE: PET CT fusion skull to thigh DATE OF EXAM: 02/16/2019 COMPARISON: PET CT October 14, 2018. Full body CT October 21, 2017. HISTORY: History of left-sided breast cancer originally diagnosed in September 2016 with surgery and chemot herapy. TECHNIQUE: Following the intravenous administration of 12.69 mCi of F-18 FDG, whole body images are performed from the skull base to the midthigh. Images are reviewed on the computer in the coronal, a xial, and sagittal planes. Reconstructed rotating images are created on independent workstation and reviewed on the computer. A noncontrast CT is performed in conjunction with the PET scan. SCAN: Subsequent Scan FINDINGS: SKULL BASE AND NECK: No new areas of suspicious hypermetabolic uptake. CHEST, MEDIASTINUM, AND HILAR REGION: Postsurgical changes to the left breast with residual thin-wall ed fluid collection and peripheral clips likely reflecting postsurgical seroma axial image 81 redemon strated perhaps slightly smaller from prior study. No new areas of suspicious hypermetabolic uptake i n the thorax are seen. ABDOMEN AND PELVIS: Normal excretion is seen including along course of distal left ureter. No new are as of abnormal hypermetabolic uptake. OSSEOUS STRUCTURES: Interval progression of osseous metastatic disease with persistent lytic lesion p osterior right T7 vertebra axial image 98 increased in size to the posterior vertebral body margin, m ax SUV is 5.82. There is new hypermetabolic lesion seen in T10 vertebra axial image 118 with anterior lytic lesion, m ax SUV is 8.16. There is new pathologic posterior left rib fracture axial image 91 involving the left sixth rib with max SUV of 2.56 with central lucency and expansion. OTHER CT: Small mucous retention cyst or polyp posterior inferior right maxillary sinus axial image 2 2 is redemonstrated. Coronary artery calcifications are again seen. Cholecystectomy clips are seen. Stable 4.5 cm low dense mass of the left adrenal gland consistent wit h benign lipid rich adenoma. Some sigmoid colonic diverticula are redemonstrated. Uterus is surgicall y absent. Facet arthropathy lower lumbar spine. IMPRESSION: Progression of osseous metastatic disease with new hypermetabolic lytic lesions. Note is made that T7 vertebral lesion now extends to the posterior vertebral body margin with suspected early effacement on the anterolateral spinal canal. Consider MRI correlation to better assess.
== END | disposition home or self-care (01) ==
LOC: RADPETMAIN 15:34
PROVIDERS: ATTEND Radiology Radiation Oncology
DX: C50.412 Malignant neoplasm of upper-outer quadrant of left female breast (principal); C79.51 Secondary malignant neoplasm of bone; Z92.3 Personal history of irradiation; Z87.891 Personal history of nicotine dependence; Z17.0 Estrogen receptor positive status [ER+]
CPT/HCPCS: 78815; A9552

== ENCOUNTER → 2019-07-20 | Outpatient (CLI) | payer OTHER | END | disposition home or self-care (01) | DX: C50.412 Malignant neoplasm of upper-outer quadrant of left female breast (principal) | CPT/HCPCS: 78815; A9552 ==

== ENCOUNTER → 2019-12-19 | Outpatient (CLI) | payer OTHER ==
--- NOTE | 2019-12-19 11:34 | MR ---
EXAMINATION TYPE: MR lumbar spine wo/w con DATE OF EXAM: 12/19/2019 COMPARISON: Prior PET/CT July 20, 2019. HISTORY: Lower back pain toward the center of back. Breast CA history TECHNIQUE: Multiplanar, multisequence images of the lumbar spine is performed without and with IV contrast, util izing 12 mL intravenous Gadavist FINDINGS: Sagittal images of the lumbar spine show vertebral body heights and alignment to remain sat isfactory. Multilevel disc desiccation is present. Mild disc space narrowing L1-L2 and L3-L4 levels. The conus medullaris is normal in position and signal ending at T12-L1 disc space level. The bone ma rrow signal intensity is overall heterogeneous. There is suspicious partially peripheral enhancing le fabiola of T1 and T2 hypointensity centered anterior L5 vertebra corresponding to hypermetabolic lesion on recent PET/CT felt to reflect metastatic lesion. Additional roughly 1.8 cm enhancing round lesion anterior L4 vertebra is now identified. There are smaller scattered lesions of T1 and T2 hyperintensi ty corresponding to sclerotic foci on recent PET/CT. Axial images show T12-L1 level to be within normal limits. Axial images at L1-L2 show mild broad disc bulge minimally effaces the anterior thecal sac. Axial images at L2-L3 and the L3-L4 levels are within normal limits. Axial images at L4-L5 level shows moderate facet degenerative changes bilaterally effacing posterior lateral thecal sac. Bilateral neural foramina are patent. Axial images at L5-S1 level show mild facet degenerative changes bilaterally. Spinal canal is preserv ed. Bilateral neural foramina are patent. Incidental 2.0 cm thin-walled cyst medially right kidney axial image 21. IMPRESSION: Progression of known osseous metastatic disease with new and Enlarging lesions corresponding to sclerotic and some hypermetabolic foci on post recent PET/CT. Othe r degenerative findings as noted above.
== END | disposition home or self-care (01) ==
LOC: RADMRIMAIN 07:31
PROVIDERS: ATTEND Internal Medicine Hematology & Oncology
DX: M99.73 Connective tissue and disc stenosis of intervertebral foramina of lumbar region (principal); M51.26 Other intervertebral disc displacement, lumbar region; M47.816 Spondylosis without myelopathy or radiculopathy, lumbar region; M47.817 Spondylosis without myelopathy or radiculopathy, lumbosacral region
CPT/HCPCS: 72158; A9585

== ENCOUNTER → 2019-12-21 | Outpatient (CLI) | payer OTHER ==
--- NOTE | 2019-12-25 06:26 | PE ---
EXAMINATION TYPE: PET CT fusion skull to thigh DATE OF EXAM: 12/21/2019 COMPARISON: Prior PET/CT July 20, 2019 and older studies. HISTORY: Breast cancer progress study. Left-sided breast cancer originally diagnosed September 2016 compl eted chemotherapy treatment March 2017 and radiation treatment in 2018. TECHNIQUE: Following the intravenous administration of 11.27 mCi of F-18 FDG, whole body images are performed from the skull base to the midthigh. Images are reviewed on the computer in the coronal, a xial, and sagittal planes. Reconstructed rotating images are created on independent workstation and reviewed on the computer. A noncontrast CT is performed in conjunction with the PET scan. SCAN: Subsequent Scan FINDINGS: SKULL BASE AND NECK: No new areas of suspicious hypermetabolic uptake. CHEST, MEDIASTINUM, AND HILAR REGION: Redemonstration of postsurgical change to the left breast with surgical clips laterally along an oval thin-walled fluid collection to reflect postsurgical seroma. L eft breast skin thickening redemonstrated. No new areas of suspicious hypermetabolic uptake in the th orax identified. ABDOMEN AND PELVIS: Normal excretion is present. No new areas of abnormal hypermetabolic uptake. OSSEOUS STRUCTURES: New hypermetabolic uptake corresponding to sclerotic lesion involving the T5 vert ebra axial image 84, max SUV is 5.11. Mild hypermetabolic uptake remains present in the sclerotic L5 lesion. Redemonstration of multiple additional sclerotic foci scattered throughout the osseous struct ures with continued progression in number of lesions felt present. Healing or healed left posterior r ib fractures redemonstrated. OTHER CT: Small mucous retention cyst or polyp posterior inferior right maxillary sinus axial image 2 5 is redemonstrated. Coronary artery calcifications in the LAD are again seen. Cholecystectomy clips are redemonstrated. Diffuse fatty infiltration of liver. Stable 4.5 cm low dens e mass of the left adrenal gland consistent with benign lipid rich adenoma. Some sigmoid colonic dive rticula are redemonstrated. Uterus is surgically absent. Facet arthropathy lower lumbar spine. IMPRESSION: Persistent osseous metastatic disease progression. No additional areas of new metastatic disease noted.
== END | disposition home or self-care (01) ==
LOC: RADPETMAIN 12:23
PROVIDERS: ATTEND Internal Medicine Hematology & Oncology
DX: C50.412 Malignant neoplasm of upper-outer quadrant of left female breast (principal); C79.51 Secondary malignant neoplasm of bone
CPT/HCPCS: 78815; A9552

== ENCOUNTER → 2020-05-03 | Outpatient (CLI) | payer OTHER ==
--- NOTE | 2020-05-05 06:12 | PE ---
EXAMINATION TYPE: PET CT fusion skull to thigh DATE OF EXAM: 05/03/2020 COMPARISON: Prior PET/CT December 21, 2019 and older studies. HISTORY: Breast cancer progress study. Left-sided cancer diagnosed 2017. TECHNIQUE: Following the intravenous administration of 10.872 mCi of F-18 FDG, whole body images are performed from the skull base to the midthigh. Images are reviewed on the computer in the coronal, axial, and sagittal planes. Reconstructed rotating images are created on independent workstation and reviewed on the computer. A localization and attenuation correction CT is performed in conjunction with the PET scan. Blood glucose level equals 185. SCAN: Subsequent Scan FINDINGS: SKULL BASE AND NECK: No new areas of abnormal hypermetabolic uptake. CHEST, MEDIASTINUM, AND HILAR REGION: Stable postsurgical changes left breast with deep thin-walled o manisha shaped fluid collection having surgical clips along the posterior lateral aspect measuring 3.4 cm transversely axial image 84. Asymmetric left breast skin thickening redemonstrated. No new areas of abnormal hypermetabolic uptake throughout the thorax including left breast and axilla. ABDOMEN AND PELVIS: Normal excretion redemonstrated. New bilateral symmetric thigh mild muscular upta ke presumed inflammatory. No new areas of suspicious hypermetabolic uptake. OSSEOUS STRUCTURES: Scattered sclerotic osseous metastatic disease redemonstrated. Areas of abnormal hypermetabolic uptake redemonstrated. For reference sclerotic L4 lesion axial image 172 has max SUV o f 2.95. OTHER CT: Small mucous retention cyst or polyp posterior inferior right maxillary sinus axial image 2 1 is redemonstrated. Coronary artery calcifications in the proximal LAD are again seen. Cholecystectomy clips are redemonstrated. Diffuse fatty infiltration of liver. Stable 4.5 cm low dens e mass of the left adrenal gland consistent with benign lipid rich adenoma. Uterus is surgically abse nt. Facet arthropathy lower lumbar spine. Multilevel spurring in the spine. Metallic anchors left humeral head. IMPRESSION: Continued osseous metastatic disease progression. No additional areas of new metastatic d isease noted.
== END | disposition home or self-care (01) ==
LOC: RADPETMAIN 08:55
PROVIDERS: ATTEND Internal Medicine Hematology & Oncology
DX: C50.412 Malignant neoplasm of upper-outer quadrant of left female breast (principal); C79.51 Secondary malignant neoplasm of bone; Z92.21 Personal history of antineoplastic chemotherapy
CPT/HCPCS: 78815; A9552

== ENCOUNTER → 2020-06-13 | Outpatient (CLI) | payer OTHER ==
--- NOTE | 2020-06-13 14:40 | XR ---
EXAMINATION TYPE: XR lumbar spine 2 or 3V DATE OF EXAM: 06/13/2020 CLINICAL HISTORY: pain TECHNIQUE: Three views of the lumbar spine are submitted. COMPARISON: None. FINDINGS: Sclerotic metastases are noted throughout the visualized lumbar segments. Grade 1 anterolisthesis L4 and L5 measuring 5 mm. Mild loss of height involving T11 and T12 superior endplate. No visible bony d estructive process or paraspinal mass. Moderate multilevel degenerative disc disease noted. IMPRESSION: Findings compatible with osseous metastatic disease.
== END | disposition home or self-care (01) ==
LOC: RADXRMAIN 14:10
PROVIDERS: ATTEND Internal Medicine Geriatric Medicine
DX: M54.5 Low back pain (principal)
CPT/HCPCS: 72100

== ENCOUNTER → 2020-08-01 | Outpatient (CLI) | payer OTHER ==
--- NOTE | 2020-08-01 15:54 | PE ---
EXAMINATION TYPE: PET CT fusion skull to thigh DATE OF EXAM: 08/01/2020 COMPARISON: Prior PET/CT May 03, 2020 and older studies HISTORY: Left-sided breast cancer diagnosed 2017 TECHNIQUE: Following the intravenous administration of 8.63 mCi of F-18 FDG, whole body images are p erformed from the skull base to the midthigh. Images are reviewed on the computer in the coronal, ax ial, and sagittal planes. Reconstructed rotating images are created on independent workstation and r eviewed on the computer. A localization and attenuation correction CT is performed in conjunction w ith the PET scan. Blood glucose level was 162 SCAN: Subsequent Scan FINDINGS: SKULL BASE AND NECK: No new areas of abnormal hypermetabolic uptake. CHEST, MEDIASTINUM, AND HILAR REGION: Stable postsurgical changes left breast with deep thin-walled o manisha shaped fluid collection having surgical clips along the posterior lateral aspect measuring 3.1 cm long axis axial image 91. Asymmetric left breast skin thickening redemonstrated. No new areas of abn ormal hypermetabolic uptake throughout the thorax including left breast and axilla. ABDOMEN AND PELVIS: Normal excretion redemonstrated. Nonspecific bowel uptake greatest left upper go drant. No new areas of suspicious hypermetabolic uptake. OSSEOUS STRUCTURES: Scattered sclerotic osseous metastatic disease redemonstrated. Areas of mild abno rmal hypermetabolic uptake redemonstrated. For reference persistent mild increased uptake sclerotic L 4 lesion has not significantly changed from prior. The max SUV is less than than 3.0. OTHER CT: Small mucous retention cyst or polyp posterior inferior right maxillary sinus axial image 2 1 is redemonstrated. Coronary artery calcifications in the proximal LAD are again seen. Cholecystectomy clips are redemonstrated. Diffuse fatty infiltration of liver. Stable 4.5 cm low dens e mass of the left adrenal gland consistent with benign lipid rich adenoma. Uterus remains surgically absent. Facet arthropathy lower lumbar spine. Multilevel spurring in the spine. Metallic anchors left humeral head. IMPRESSION: No new metastatic disease clearly seen. No significant change from most recent PET/CT
== END | disposition home or self-care (01) ==
LOC: RADPETMAIN 13:26
PROVIDERS: ATTEND Internal Medicine Hematology & Oncology
DX: C50.412 Malignant neoplasm of upper-outer quadrant of left female breast (principal)
CPT/HCPCS: 78815; A9552

== ENCOUNTER 2020-10-17 10:03 | Emergency (ER) | payer OTHER ==
[2020-10-17 10:14] VITALS: BP 166/85; PULSE 92; RESP 18; TEMP 97.3
--- NOTE | 2020-10-17 10:38 | ED ---
ENT HPI - General Chief complaint: ENT Stated complaint: facial pain & swelling Time Seen by Provider: 10/17/20 10:25 Source: patient, family Mode of arrival: ambulatory Limitations: no limitations - History of Present Illness Initial comments: 65-year-old female presents to the emergency department with a chief complaint of facial pain and swelling. This started since 3 AM today and seems to progressing in severity. States she also has mild right-sided facial swelling but denies significant erythema. Reports tenderness to touch over the right si de of face and some submandibular tenderness as well. She reports some difficulty fully opening up her mouth. Denies any pain with her teeth or gums. Denies any drooling or changes to her voice. She reports having dental work done about 3 weeks ago on the left side but nothing on the right side of the oral cavity. - Related Data Home Medications Medication Instructions Recorded Confirmed Atorvastatin Calcium [Lipitor] 10 mg PO DAILY 11/03/16 12/05/18 Lansoprazole [Prevacid] 15 mg PO DAILY 11/03/16 12/05/18 Venlafaxine HCl ER [Effexor Xr] 75 mg PO DAILY 11/03/16 12/05/18 allopurinoL [Zyloprim] 300 mg PO DAILY 11/03/16 12/05/18 Letrozole [Femara] 2.5 mg PO DAILY 12/01/17 12/05/18 Ibuprofen [Motrin Ib] 800 mg PO Q6H PRN 12/05/18 12/05/18 lisinopriL [Zestril] 40 mg PO DAILY 12/05/18 12/05/18 predniSONE [Deltasone] See Taper PO DAILY 12/05/18 12/05/18 Previous Rx's Medication Instructions Recorded Cyclobenzaprine [Flexeril] 5 mg PO TID PRN #15 tablet 12/05/18 Hydrocodone/Acetaminophen [Advance 1 tab PO Q6HR PRN #10 tab 12/05/18 5-325] Amoxicillin/Potassium Clav 1 tab PO Q12HR #20 tab 10/17/20 [Augmentin 875-125 Tablet] Allergies Allergy/AdvReac Type Severity Reaction Status Date / Time No Known Allergies Allergy Verified 10/17/20 10:13 Review of Systems ROS Statement: Those systems with pertinent positive or pertinent negative responses have been documented in the HPI. ROS Other: All systems not noted in ROS Statement are negative. Past Medical History Past Medical History: Cancer, Hyperlipidemia, Hypertension Additional Past Medical History / Comment(s): left breast cancer, gout, arthritis in knee History of Any Multi-Drug Resistant Organisms: None Reported Past Surgical History: Breast Surgery, Cholecystectomy, Hysterectomy, Orthopedic Surgery Additional Past Surgical History / Comment(s): Knee scope. Left rotator cuff repair. Right arm tendon release. Lasik eye surgery. Left breast lumpectomy 2016 Past Anesthesia/Blood Transfusion Reactions: No Reported Reaction Past Psychological History: No Psychological Hx Reported Smoking Status: Never smoker Past Alcohol Use History: Occasional Past Drug Use History: None Reported General Exam Limitations: no limitations General appearance: alert, in no apparent distress Head exam: Present: atraumatic, normocephalic, normal inspection Eye exam: Present: normal appearance, PERRL, EOMI Pupils: Present: normal accommodation ENT exam: Present: normal exam, normal oropharynx (Mild right-sided facial swelling. No overlying cellulitic skin changes at this time. Uvula midline. No pharyngeal or tonsillar erythema. No signs of pustular discharge from the buccal cavity.), mucous membranes moist, TM's normal bilaterally, normal external ear exam Neck exam: Present: normal inspection, full ROM. Absent: tenderness Respiratory exam: Present: normal lung sounds bilaterally. Absent: respiratory distress, wheezes, rales, rhonchi, stridor Cardiovascular Exam: Present: regular rate, normal rhythm, normal heart sounds. Absent: systolic murmur Extremities exam: Present: normal inspection, full ROM, normal capillary refill. Absent: tenderness, pedal edema, joint swelling Back exam: Present: normal inspection, full ROM. Absent: tenderness, CVA tenderness (R), CVA tenderness (L) Neurological exam: Present: alert, oriented X3 Psychiatric exam: Present: normal affect, normal mood Skin exam: Present: warm, dry, intact, normal color Course Vital Signs 10/17/20 10:09 Temperature 97.3 F L Pulse Rate 92 Respiratory 18 Rate Blood Pressure 166/85 O2 Sat by Pulse 94 L Oximetry Medical Decision Making - Medical Decision Making 65-year-old female presents to emergency Department with a chief complaint of right-sided facial pain. On physical examination, she has tenderness over the seven-day blood in the parotid gland. This was an acute setting. She is not in any respiratory distress and is able to swallow without difficulties. No signs of peritonsillar abscess or other oropharyngeal conditions. I will treat with Augmentin for 10 days. Advised her to eat sour foods in order to promote salivary secretions. Also advised to follow-up with an ENT specialist. Return parameters were thoroughly discussed the patient was standing agreeable. Case discussed with Dr. Ramachandran. Disposition Clinical Impression: Right facial pain Disposition: HOME SELF-CARE Condition: Stable Instructions (If sedation given, give patient instructions): Sialoadenitis (ED) Additional Instructions: Take prescribed medication as directed. Follow-up with ENT specialist. Return to emergency department if symptoms worsen. Try eating saliva producing foods, anything sour. Prescriptions: Amoxicillin/Potassium Clav [Augmentin 875-125 Tablet] 1 tab PO Q12HR #20 tab Is patient prescribed a controlled substance at d/c from ED?: No Referrals: Fer Comer MD [Primary Care Provider] - 1-2 days Gio Vargas MD [STAFF PHYSICIAN] - 1-2 days Time of Disposition: 10:37
== END 2020-10-17 10:53 | disposition home or self-care (01) ==
LOC: EC 10:03
DX: R51.9 Headache, unspecified (principal); R22.0 Localized swelling, mass and lump, head; I10 Essential (primary) hypertension; E78.5 Hyperlipidemia, unspecified; M10.9 Gout, unspecified; Z85.3 Personal history of malignant neoplasm of breast; Z79.1 Long term (current) use of non-steroidal anti-inflammatories (NSAID); Z79.52 Long term (current) use of systemic steroids; Z79.899 Other long term (current) drug therapy
CPT/HCPCS: 99283

== ENCOUNTER → 2020-10-17 | Outpatient (CLI) | payer MEDICARE, OTHER ==
[2020-10-17 13:50] LABS: Basophils % (A) 0 %; Eosinophils % (A) 0 %; HCT 39.8 % (34.0-46.0); HGB 12.5 gm/dL (11.4-16.0); Lymphocytes # (A) 0.9 k/uL (1.0-4.8); Lymphocytes % (A) 5 %; MCH 31.1 pg (25.0-35.0); MCHC 31.5 g/dL (31.0-37.0); MCV 98.7 fL (80.0-100.0); Mean Platelet Volume 8.1; Monocytes # (A) 0.2 k/uL (0-1.0); Monocytes % (A) 1 %; Neutrophils # (A) 16.9 k/uL (1.3-7.7); Neutrophils % (A) 93 %; Platelet Count 340 k/uL (150-450); RBC 4.04 m/uL (3.80-5.40); RDW 14.9 % (11.5-15.5); WBC 18.1 k/uL (3.8-10.6)
[2020-10-17 14:04] LABS: ALT 101 U/L (4-34); AST 106 U/L (14-36); African American GFR (CKD) 67 (>60 ml/min/1.73 sqM); Albumin 4.5 g/dL (3.5-5.0); Albumin/Globulin Ratio 1.8; Alkaline Phosphatase 176 U/L (38-126); Anion Gap 11 mmol/L; Blood Urea Nitrogen 17 mg/dL (7-17); C Reactive Protein 5.9 mg/dL (<1.0); Calcium 8.8 mg/dL (8.4-10.2); Carbon Dioxide 25 mmol/L (22-30); Chloride 105 mmol/L (98-107); Globulin 2.5 g/dL; Glucose 217 mg/dL (74-99); Non-African American GFR(CKD) 58 (>60 ml/min/1.73 sqM); Potassium 4.2 mmol/L (3.5-5.1); Sodium 141 mmol/L (137-145); Total Bilirubin 0.3 mg/dL (0.2-1.3)
[2020-10-17 14:49] LABS: Erythrocyte Sedimentation Rate 68 mm/hr (0-20)
== END | disposition home or self-care (01) ==
LOC: LABWHC1 13:31
PROVIDERS: ATTEND Nurse Practitioner Gerontology
DX: I10 Essential (primary) hypertension (principal); R51.9 Headache, unspecified
CPT/HCPCS: 36415; 80053; 85025; 85652; 86140

== ENCOUNTER → 2020-10-17 | Outpatient (CLI) | payer MEDICARE, OTHER ==
--- NOTE | 2020-10-19 23:32 | XR ---
EXAMINATION TYPE: XR facial bones 3 views complete, XR mandible 7 views complete DATE OF EXAM: 10/17/2020 COMPARISON: NONE HISTORY: 65-year-old female M12.9, arthropathy, history of breast cancer. Pain of chin and right side of face. FINDINGS: Facial bones: Minimal leftward nasal septal deviation. The asymmetric opacification of the paranasal sinuses is ronn ntified. Nasal bone is intact. No facial bone fracture is seen. Orbits appear symmetrical. Mandible: Dental amalgam. No osseous erosions identified. The TMJs appear grossly intact. No mandibular fractur e or discrete osseous erosion seen. IMPRESSION (facial bones and mandible): Minimal leftward nasal septal deviation. Dental amalgam. Otherwise, no specific radiographic abnormal ity is identified.
== END | disposition home or self-care (01) ==
LOC: RADXRMAIN 12:59
PROVIDERS: ATTEND Internal Medicine Hematology & Oncology
DX: J34.2 Deviated nasal septum (principal); Z85.3 Personal history of malignant neoplasm of breast
CPT/HCPCS: 70110; 70150

== ENCOUNTER → 2020-10-24 | Outpatient (CLI) | payer OTHER, MEDICARE ==
--- NOTE | 2020-10-26 07:01 | PE ---
EXAMINATION TYPE: PET CT fusion skull to thigh DATE OF EXAM: 10/24/2020 COMPARISON: Prior PET/CT August 01, 2020 and older studies. HISTORY: Metastatic breast cancer progress study. Lobular carcinoma. Originally left-sided cancer rachel gnosed 2016. Surgery April 2018. TECHNIQUE: Following the intravenous administration of 11.17 mCi of F-18 FDG, whole body images are performed from the skull base to the midthigh. Images are reviewed on the computer in the coronal, a xial, and sagittal planes. Reconstructed rotating images are created on independent workstation and reviewed on the computer. A localization and attenuation correction CT is performed in conjunction with the PET scan. Blood glucose level equals 92. SCAN: Subsequent Scan FINDINGS: SKULL BASE AND NECK: No new areas of abnormal hypermetabolic uptake. CHEST, MEDIASTINUM, AND HILAR REGION: Stable postsurgical changes left breast with deep thin-walled o manisha shaped fluid collection having surgical clips along the posterior lateral aspect measuring 3.1 cm long axis axial image 86 current study. Asymmetric left breast skin thickening redemonstrated. No ne w areas of abnormal hypermetabolic uptake throughout the thorax including left breast and axilla. ABDOMEN AND PELVIS: Normal excretion redemonstrated. Nonspecific bowel uptake is again seen. Subtle h ypermetabolic uptake in the anterior aspect right hepatic dome. Review of CT slices shows heterogenei ty with suggestion of innumerable hypodense lesions predominantly subcentimeter in size, there is a d ominant 3.7 cm low dense lesion posterior right hepatic lobe image 129 without hypermetabolic uptake. Lesions and new more prominent from prior studies making strongly suspicious. OSSEOUS STRUCTURES: Scattered sclerotic osseous metastatic disease redemonstrated. No areas of worsen ing or new hypermetabolic uptake. The max SUV is less than than 3.0. OTHER CT: Small mucous retention cyst or polyp posterior inferior right maxillary sinus axial image 2 5 is redemonstrated. Coronary artery calcifications in the proximal LAD are again seen. Cholecystectomy clips are redemonstrated. Stable 4.5 cm low dense mass of the left adrenal gland con sistent with benign lipid rich adenoma. Uterus remains surgically absent. Facet arthropathy lower lumbar spine. Multilevel spurring in the spine. Metallic anchors left humeral head from prior rotator cuff surgery. IMPRESSION: Stable osseous metastatic disease. Attention to liver where subtle predominantly ametabol ic hepatic metastatic disease is likely present. Further investigation with liver protocol contrast e nhanced CT or MRI is advised.
== END | disposition home or self-care (01) ==
LOC: RADPETMAIN 08:17
PROVIDERS: ATTEND Internal Medicine Hematology & Oncology
DX: C79.51 Secondary malignant neoplasm of bone (principal); K76.9 Liver disease, unspecified; Z85.3 Personal history of malignant neoplasm of breast
CPT/HCPCS: 78815; A9552

== ENCOUNTER → 2020-11-19 | Outpatient (CLI) | payer OTHER ==
--- NOTE | 2020-11-19 16:29 | MR ---
EXAMINATION TYPE: MR liver wo/w con DATE OF EXAM: 11/19/2020 COMPARISON: PET/CT 10/24/2020 HISTORY: Hx of breast cancer, Liver mass TECHNIQUE: Multiplanar, multisequence images of the abdomen were obtained without and with 8.5 mL Mono avist IV contrast, utilizing liver mass protocol. FINDINGS: Lung bases: Trace left pleural effusion. Liver: There are innumerable marked diffuse hepatic masses, Biliary: Status post cholecystectomy. Pancreas: Normal. Spleen: Normal. Adrenals: Right adrenal gland normal. Redemonstrated 4.4 x 3.7 cm left adrenal mass with signal loss on out of phase imaging most consistent with benign adenoma. Kidneys: No hydronephrosis bilaterally. Right renal benign simple cyst measures 1.9 cm. There is a 3 mm lesion of the posterior left renal lower pole which demonstrate peripheral signal loss on out of p hase imaging and no postcontrast enhancement, which may represent a tiny cyst versus benign angiomyol ipoma. Bowel: Visualized bowel loops demonstrate no evidence of obstruction. Lymph nodes: No lymphadenopathy. Peritoneum: There is small volume perihepatic and perisplenic ascites. Osseous structures: Diffuse osseous metastatic disease, with demonstration of enhancement. IMPRESSION: 1. Innumerable diffuse hepatic masses likely represent metastatic disease. 2. Osseous metastatic disease. 3. Trace perihepatic and perisplenic ascites. 4. Trace left pleural effusion.
== END | disposition home or self-care (01) ==
LOC: RADMRIMAIN 08:39
PROVIDERS: ATTEND Internal Medicine Hematology & Oncology
DX: C79.51 Secondary malignant neoplasm of bone (principal); R18.8 Other ascites; Z85.3 Personal history of malignant neoplasm of breast
CPT/HCPCS: 74183; A9585

== ENCOUNTER 2020-11-21 13:37 | Inpatient (IN) | payer OTHER, MEDICARE ==
[2020-11-21 14:43] LABS: Basophils # (A) 0.1 k/uL (0-0.2); Basophils % (A) 1 %; Eosinophils # (A) 0.3 k/uL (0-0.7); Eosinophils % (A) 3 %; HCT 40.9 % (34.0-46.0); HGB 13.3 gm/dL (11.4-16.0); Lymphocytes # (A) 1.2 k/uL (1.0-4.8); Lymphocytes % (A) 10 %; MCH 31.8 pg (25.0-35.0); MCHC 32.4 g/dL (31.0-37.0); MCV 97.9 fL (80.0-100.0); Macrocytosis Slight; Mean Platelet Volume 9.6; Monocytes # (A) 0.8 k/uL (0-1.0); Monocytes % (A) 7 %; Neutrophils % (A) 80 %; Platelet Count 249 k/uL (150-450); RBC 4.18 m/uL (3.80-5.40); RDW 15.6 % (11.5-15.5); WBC 12.5 k/uL (3.8-10.6)
[2020-11-21 14:53] LABS: Albumin 3.7 g/dL (3.5-5.0); Calcium 8.1 mg/dL (8.4-10.2); Magnesium 1.1 mg/dL (1.6-2.3); Potassium 4.9 mmol/L (3.5-5.1); Total Bilirubin 0.6 mg/dL (0.2-1.3); Total Protein 6.3 g/dL (6.3-8.2)
[2020-11-21 15:02] LABS: INR 1.1 (<1.2); Partial Thromboplastin Time 24.3 sec (22.0-30.0); Prothrombin Time 11.8 sec (9.0-12.0)
[2020-11-21 15:14] LABS: D-Dimer 7.11 mg/L FEU (<0.60)
[2020-11-21] MEDS ORDERED: HEPARIN SODIUM 1,000 UN/ML (10ML VL) IV PRN (15:15)
[2020-11-21] MEDS ORDERED: HEPARIN SODIUM 1,000 UN/ML (10ML VL) IV ONE (15:15)
--- NOTE | 2020-11-21 15:36 | XR ---
EXAMINATION TYPE: XR chest 2V DATE OF EXAM: 11/21/2020 COMPARISON: 12/05/2018 HISTORY: Cough and short of breath TECHNIQUE: Frontal and lateral views of the chest are obtained. FINDINGS: There is no focal air space opacity, pleural effusion, or pneumothorax seen. Clips are see n overlying the left hemithorax. The cardiac silhouette size is within normal limits. The osseous s tructures are intact. IMPRESSION: No acute cardiopulmonary process.
--- NOTE | 2020-11-21 16:03 | CT ---
EXAMINATION TYPE: CT abdomen pelvis wo con DATE OF EXAM: 11/21/2020 COMPARISON: PET/CT 10/24/2020. MRI liver 11/19/2020. HISTORY: Generalized pain with nausea. Breast cancer. CT DLP: 822.1 mGycm Automated exposure control for dose reduction was used. TECHNIQUE: Helical acquisition of images was performed from the lung bases through the pelvis. CONTRAST: Performed without Oral Contrast and without intravenous contrast. FINDINGS: LUNG BASES: Small left pleural effusion. LIVER: Marked diffuse hepatic metastases. BILIARY SYSTEM: Status post cholecystectomy. No biliary ductal dilatation. PANCREAS: Atrophic pancreas. SPLEEN: Normal in size. ADRENALS: Right adrenal normal. Redemonstrated 4.6 cm left adrenal benign adenoma. KIDNEYS: No hydronephrosis or urolithiasis. Simple right renal cyst. BOWEL: No evidence of bowel obstruction. Bowel loops are somewhat limited in visualization by lack o f intravenous or oral contrast. PERITONEUM: No pneumoperitoneum. Tiny foci of air associated with the perihepatic fluid inferiorly a ppear within the colon on coronal reformatted view. There is moderate ascites, which is predominantly perihepatic and perisplenic. LYMPH NODES: No lymphadenopathy. PELVIS: Status post hysterectomy. Nondistended urinary bladder. VASCULATURE: No abdominal aortic aneurysm. MUSCULOSKELETAL: Diffuse skeletal osteoblastic metastatic disease. IMPRESSION: 1. Marked diffuse hepatic metastases. 2. Diffuse osteoblastic metastatic disease. 3. Moderate ascites, predominantly perihepatic and perisplenic. 4. Small left pleural effusion.
--- NOTE | 2020-11-21 16:21 | ED ---
SOB HPI - General Chief Complaint: Shortness of Breath Stated Complaint: SOB Time Seen by Provider: 11/21/20 13:55 Source: patient Mode of arrival: wheelchair Limitations: no limitations - History of Present Illness Initial Comments: 65-year-old female with past mental history of breast cancer, hypertension presents emergency room with reported shortness of breath. Family is at bedside and helps provide history. Daughter states that the mother has had exertional shortness of breath for the past several weeks. She has active breast cancer with recently diagnosed liver metastasis and is on active chemotherapy. Patient also gets hormone replacement. She was visiting the cancer center today to get her normal monthly injection when her vitals were obtained and the patient was found to have an oxygen saturation of 74%. Cancer Center transfer the patient to the emergency room for further evaluation. Patient denies any chest pain. No history of cardiac disease. No calf pain or swelling. No history of DVT or PE. She denies cough, fevers or chills. No concern for Covid. Patient sees Dr. Diaz. Scheduled for liver biopsy in 2 weeks. No history of similar symptoms in the past. No other alleviating, precipitating or modifying factors - Related Data Home Medications Medication Instructions Recorded Confirmed Atorvastatin Calcium [Lipitor] 10 mg PO DAILY 11/03/16 11/21/20 Lansoprazole [Prevacid] 15 mg PO DAILY 11/03/16 11/21/20 Venlafaxine HCl ER [Effexor Xr] 75 mg PO DAILY 11/03/16 11/21/20 allopurinoL [Zyloprim] 300 mg PO DAILY 11/03/16 11/21/20 lisinopriL [Zestril] 40 mg PO DAILY 12/05/18 11/21/20 Alpelisib [Piqray] 2 tab PO DAILY 11/21/20 11/21/20 fentaNYL 25MCG/HR PATCH [Duragesic 1 patch TRANSDERM Q72H 11/21/20 11/21/20 25MCG/HR] sitaGLIPtin PHOS/metFORMIN HCL 1 cap PO BID 11/21/20 11/21/20 [Janumet 50-1,000 mg Tablet] Allergies Allergy/AdvReac Type Severity Reaction Status Date / Time No Known Allergies Allergy Verified 11/21/20 16:18 Review of Systems ROS Statement: Those systems with pertinent positive or pertinent negative responses have been documented in the HPI. ROS Other: All systems not noted in ROS Statement are negative. Past Medical History Past Medical History: Cancer, Hyperlipidemia, Hypertension Additional Past Medical History / Comment(s): left breast cancer, gout, arthritis in knee History of Any Multi-Drug Resistant Organisms: None Reported Past Surgical History: Breast Surgery, Cholecystectomy, Hysterectomy, Orthopedic Surgery Additional Past Surgical History / Comment(s): Knee scope. Left rotator cuff repair. Right arm tendon release. Lasik eye surgery. Left breast lumpectomy 2016 Past Anesthesia/Blood Transfusion Reactions: No Reported Reaction Past Psychological History: No Psychological Hx Reported Smoking Status: Never smoker Past Alcohol Use History: Occasional Past Drug Use History: None Reported General Exam Limitations: no limitations Course Vital Signs 11/21/20 11/21/20 11/21/20 13:40 15:20 18:30 Temperature 98.0 F 97.6 F Pulse Rate 112 H 106 H 99 Respiratory 22 20 18 Rate Blood Pressure 105/72 121/76 120/73 O2 Sat by Pulse 98 97 97 Oximetry Medical Decision Making - Medical Decision Making Upon arrival patient is placed into room 1. Thorough history and physical exam is performed. IV is obtained. Patient is tachycardic with oxygen saturations of 95-98%. 12-lead EKG is performed. She remains on continuous pulse ox and cardiac monitoring. Laboratory studies are conducted. Originally a CT the patient's chest, abdomen and pelvis was ordered however the patient has a creatinine of 2.7. No previous history of kidney disease. This is replaced with a noncontrasted CT of the abdomen and pelvis and a chest x-ray. Additional laboratory studies demonstrate a d-dimer of 7.1, troponin 0.037 and elevated liver enzymes. Alk phos is 553. Patient was started on normal saline at 130 mL per hour. Patient is heparinized after CT and chest x-ray results. Chest x-ray is negative for any acute process. CT of the abdomen and pelvis demonstrates diffuse osteoblastic and hepatic disease concerning for metastatic disease. Small left pleural effusion. Moderate ascites. The patient is admitted and the case is discussed with Dr. Abarca. Patient will go for a VQ scan. She is currently awaiting a bed on the floor - Lab Data Result diagrams: 11/21/20 14:29 11/21/20 14:29 Lab Results 11/21/20 11/21/20 11/21/20 Range/Units 14:29 14:29 14:29 WBC 12.5 H (3.8-10.6) k/uL RBC 4.18 (3.80-5.40) m/uL Hgb 13.3 (11.4-16.0) gm/dL Hct 40.9 (34.0-46.0) % MCV 97.9 (80.0-100.0) fL MCH 31.8 (25.0-35.0) pg MCHC 32.4 (31.0-37.0) g/dL RDW 15.6 H (11.5-15.5) % Plt Count 249 (150-450) k/uL MPV 9.6 Neutrophils % 80 % Lymphocytes % 10 % Monocytes % 7 % Eosinophils % 3 % Basophils % 1 % Neutrophils # 10.0 H (1.3-7.7) k/uL Lymphocytes # 1.2 (1.0-4.8) k/uL Monocytes # 0.8 (0-1.0) k/uL Eosinophils # 0.3 (0-0.7) k/uL Basophils # 0.1 (0-0.2) k/uL Macrocytosis Slight PT 11.8 (9.0-12.0) sec INR 1.1 (<1.2) APTT 24.3 (22.0-30.0) sec D-Dimer 7.11 H (<0.60) mg/L FEU Sodium 140 (137-145) mmol/L Potassium 4.9 (3.5-5.1) mmol/L Chloride 112 H (98-107) mmol/L Carbon Dioxide 18 L (22-30) mmol/L Anion Gap 10 mmol/L BUN 38 H (7-17) mg/dL Creatinine 2.70 H (0.52-1.04) mg/dL Est GFR (CKD-EPI)AfAm 21 (>60 ml/min/1.73 sqM) Est GFR (CKD-EPI)NonAf 18 (>60 ml/min/1.73 sqM) Glucose 120 H (74-99) mg/dL Plasma Lactic Acid Robi (0.7-2.0) mmol/L Calcium 8.1 L (8.4-10.2) mg/dL Magnesium 1.1 L (1.6-2.3) mg/dL Total Bilirubin 0.6 (0.2-1.3) mg/dL AST 382 H (14-36) U/L ALT 219 H (4-34) U/L Alkaline Phosphatase 553 H (38-126) U/L Troponin I (0.000-0.034) ng/mL NT-Pro-B Natriuret Pep pg/mL Total Protein 6.3 (6.3-8.2) g/dL Albumin 3.7 (3.5-5.0) g/dL 11/21/20 11/21/20 11/21/20 Range/Units 14:29 14:29 14:29 WBC (3.8-10.6) k/uL RBC (3.80-5.40) m/uL Hgb (11.4-16.0) gm/dL Hct (34.0-46.0) % MCV (80.0-100.0) fL MCH (25.0-35.0) pg MCHC (31.0-37.0) g/dL RDW (11.5-15.5) % Plt Count (150-450) k/uL MPV Neutrophils % % Lymphocytes % % Monocytes % % Eosinophils % % Basophils % % Neutrophils # (1.3-7.7) k/uL Lymphocytes # (1.0-4.8) k/uL Monocytes # (0-1.0) k/uL Eosinophils # (0-0.7) k/uL Basophils # (0-0.2) k/uL Macrocytosis PT (9.0-12.0) sec INR (<1.2) APTT (22.0-30.0) sec D-Dimer (<0.60) mg/L FEU Sodium (137-145) mmol/L Potassium (3.5-5.1) mmol/L Chloride (98-107) mmol/L Carbon Dioxide (22-30) mmol/L Anion Gap mmol/L BUN (7-17) mg/dL Creatinine (0.52-1.04) mg/dL Est GFR (CKD-EPI)AfAm (>60 ml/min/1.73 sqM) Est GFR (CKD-EPI)NonAf (>60 ml/min/1.73 sqM) Glucose (74-99) mg/dL Plasma Lactic Acid Robi 1.4 (0.7-2.0) mmol/L Calcium (8.4-10.2) mg/dL Magnesium (1.6-2.3) mg/dL Total Bilirubin (0.2-1.3) mg/dL AST (14-36) U/L ALT (4-34) U/L Alkaline Phosphatase (38-126) U/L Troponin I 0.037 H* (0.000-0.034) ng/mL NT-Pro-B Natriuret Pep 620 pg/mL Total Protein (6.3-8.2) g/dL Albumin (3.5-5.0) g/dL - EKG Data EKG Comments: EKG demonstrates a sinus rhythm with ventricular rate of 100. [place] interval 182. QRS 80. QTC of 430. Q wave with inverted T-wave in lead 3. No acute ST segment elevations Disposition Clinical Impression: Acute respiratory failure, Elevated d-dimer, Breast cancer, Transaminitis, JILLIAN (acute kidney injury) Disposition: ADMITTED IP TO THIS HOSP Condition: Serious Is patient prescribed a controlled substance at d/c from ED?: No Decision to Admit Reason: Admit from EC Decision Date: 11/21/20 Decision Time: 16:51
[2020-11-21] MEDS: HEPARIN SOD,PORK IN 0.45% NACL 25,000 UNIT in 0.45% NACL 1 250ML.BAG IV SCH (16:27)
[2020-11-21] MEDS ORDERED: NALOXONE 0.4 MG/ML 1 ML VIAL IV PRN (16:51)
--- NOTE | 2020-11-21 17:56 | NM ---
EXAMINATION TYPE: NM pul vent and perfuse DATE OF EXAM: 11/21/2020 COMPARISON: NONE HISTORY: Tachycardia hypoxia TECHNIQUE: Utilizing inhalation of 37.2 mCi Tc 99m DTPA aerosol and intravenous injection of 4.3 mCi of Tc 99m MAA, ventilation and perfusion images are acquired post injection in multiple projections. FINDINGS: There is patchy distribution of radiotracer through the lung conley on the ventilation. This will toni e determination indeterminate. Multiple moderate or large mismatched defects are not identified to bermudez ggest high probability for pulmonary embolism. No triple matched defects evident. IMPRESSION: Indeterminate probability for pulmonary embolism. COPD may be present.
[2020-11-21] MEDS: SODIUM CHLORIDE 0.9% 1,000 ML IV SCH (18:54)
[2020-11-21 22:21] LABS: Glucose,Whole Blood 90 mg/dL (75-99)
[2020-11-21] MEDS ORDERED: ONDANSETRON 4 MG/2 ML VIAL IVP PRN (23:13)
[2020-11-21] MEDS ORDERED: MORPHINE SULFATE 2 MG/ML SYRINGE IVP PRN (23:13)
[2020-11-21] MEDS ORDERED: PANTOPRAZOLE 40 MG/10 ML VIAL IVP SCH (23:15)
[2020-11-22] MEDS: SODIUM CHLORIDE 0.9% 1,000 ML IV SCH ×3 (02:02→23:13)
[2020-11-22 04:17] LABS: Basophils % (A) 0 %; Eosinophils # (A) 0.2 k/uL (0-0.7); Eosinophils % (A) 1 %; HCT 32.4 % (34.0-46.0); HGB 10.5 gm/dL (11.4-16.0); Hypochromasia Slight; Lymphocytes # (A) 1.1 k/uL (1.0-4.8); Lymphocytes % (A) 9 %; MCH 32.2 pg (25.0-35.0); MCHC 32.4 g/dL (31.0-37.0); MCV 99.6 fL (80.0-100.0); Macrocytosis Slight; Mean Platelet Volume 9.8; Monocytes # (A) 0.8 k/uL (0-1.0); Monocytes % (A) 7 %; Neutrophils # (A) 9.6 k/uL (1.3-7.7); Neutrophils % (A) 82 %; Platelet Count 183 k/uL (150-450); RBC 3.25 m/uL (3.80-5.40); RDW 15.8 % (11.5-15.5); WBC 11.8 k/uL (3.8-10.6)
[2020-11-22 04:52] LABS: Potassium 4.1 mmol/L (3.5-5.1)
[2020-11-22 04:56] LABS: Calcium 6.3 mg/dL (8.4-10.2)
[2020-11-22 06:36] LABS: Ionized Calcium 4.2 mg/dL (4.5-5.3)
[2020-11-22] MEDS: ACETAMINOPHEN TAB 325 MG TAB PO PRN ×2 (06:38→10:44)
[2020-11-22] MEDS ORDERED: CALCIUM GLUCONATE 1 GM in SODIUM CHLORIDE 0.9% 100 ML IVPB ONE (07:15)
[2020-11-22] MEDS: MAGNESIUM SULFATE-D5W PMX 1 GM in DEXTROSE/WATER 1 100ML.BAG IVPB SCH ×6 (08:57→20:05)
[2020-11-22 11:24] LABS: C Reactive Protein 6.2 mg/dL (<1.0)
[2020-11-22] MEDS ORDERED: Magnesium Replacement Protocol 1 EACH MISC MISCELLANE PRN (11:33)
--- NOTE | 2020-11-22 11:34 | P.HPIM ---
History of Present Illness H&P Date: 11/22/20 Chief Complaint: Shortness of breath HISTORY OF PRESENT ILLNESS This is a 65-year-old female patient of Dr. Comer with past medical history of diabetes mellitus type 2, hypertension, hyperlipidemia, gastroesophageal reflux disease, recurrent depression breast cancer originally diagnosed in 2018 in remission but was recently found to have metastatic disease and has been started on chemotherapy and currently on Alpelisib. She was found have bone metastases recently and as of last week was found to have metastatic disease to the liver. She follows with Dr. Diaz and is scheduled to have a liver biopsy. Patient is presenting with complaints of shortness of breath for the past 2 weeks especially with activity. She denies having any chest pain or heaviness. No edema. No lightheadedness or dizziness, no confusion, no fever or chills. She has had diarrhea for the past week and had a small bowel movement this morning. Patient has lost her appetite. She is complaining of lower abdominal pain cramping like menstrual cramps. She also has some right upper quadrant pain with deep breathing. She is complaining of feeling quite weak and tired. Patient states that she was on ibuprofen and recently had a tooth pulled on the left side. She stopped taking ibuprofen 2 weeks ago. She has had a follow-up appointment as she was having some jaw pain which her dentist thought it was related to muscle. She did complete a course of Augmentin. Patient presented to [facility] emergency center and was found to be afebrile, initial heart rate 112, blood pressure 105/72, respiratory rate 22, pulse ox 98%. WBC 12.5, hemoglobin 13.3 platelet count 249. Sodium 140, potassium 4.9, chloride 112, CO2 18, BUN 38 creatinine 2.7, blood sugar 120. D- dimer was elevated at 7.11. Liver function tests reveal total bilirubin 0.6, AST 382, ALT 219, alkaline phosphatase 553. Lactic acid 1.4. ProBNP 620. Troponins 0.037, 0.046, 0.045. EKG was a sinus rhythm with no acute ST changes. CTA of the chest was unable to be done due to patient's elevated creatinine and VQ scan was performed which was reported as indeterminate for pulmonary embolism. COPD may be present. Chest x-rays revealed no acute cardio pulmonary process. CT of the abdomen and pelvis without contrast revealed marked diffuse hepatic metastases, diffuse osteoblastic metastatic disease, moderate ascites, predominantly. Hepatic and very splenic. Small left pleural effusion. Patient was admitted to the ICU as an overflow. Consult with oncology and GI. REVIEW OF SYSTEMS Constitutional: No fever, no chills, no night sweats. Reports weight change. Reports weakness, Reports fatigue Reports lethargy. No daytime sleepiness. EENT: No headache. No blurred vision or double vision, no loss of vision. No loss of Hearing, no ringing in the ears, no dizziness. No nasal drainage or congestion. No epistaxis. No sore throat. Lungs: Reports shortness of breath, cough, no sputum production. No wheezing. Reports shortness of breath with activity. Cardiovascular: No chest pain, no lower extremity edema. No palpitations. No paroxysmal nocturnal dyspnea. No orthopnea. No lightheadedness or dizziness. No syncopal episodes. Abdominal: Reports abdominal pain. No nausea, vomiting. Reports diarrhea. No constipation. No bloody or tarry stools. Reports loss of appetite. Genitourinary: No dysuria, increased frequency, urgency. No urinary retention. Musculoskeletal: No myalgias. No muscle weakness, no gait dysfunction, no frequ ent falls. No back pain. No neck pain. Integumentary: No wounds, no lesions. No rash or pruritus. No unusual bruising. No change in hair or nails. Neurologic: No aphasia. No facial droop. No change in mentation. No head injury. No headache. No paralysis. No paresthesia. Psychiatric: No depression. No anxiety. No mood swings. Endocrine: No abnormal blood sugars. No weight change. No excessive sweating or thirst. No cold intolerance. SOCIAL HISTORY Patient was a smoker one pack per day for 40 years and quit in 2013. She denies any marijuana use, alcohol use or street drug use. She lives at home with her . She does not have any DME in place. FAMILY HISTORY Mother at age 88 from old age with history of hypertension, osteoarthritis, gout. Father at age 81 from cortical basal degeneration. Patient does not have any brothers. She has one sister that is from acquired hepatitis in the work place secondary to needle stick. Patient has one son with gout second child with no major medical problems. PHYSICAL EXAMINATION Gen: This is a 65-year-old female. She is resting in ICU bed, is at bedside. Patient presented to be in no acute distress at rest. HEENT: Head is atraumatic, normocephalic. Pupils equal, round. Sclerae is anicteric. NECK: Supple. No JVD. No lymphadenopathy. No thyromegaly. LUNGS: Clear to auscultation. No wheezes or rhonchi. No intercostal retractions. HEART: Regular rate and rhythm. No murmur. ABDOMEN: Soft. Bowel sounds are present. No masses. right upper quadrant tenderness, bilateral lower quadrant tenderness. EXTREMITIES: No pedal edema. No calf tenderness. NEUROLOGICAL: Patient is awake, alert and oriented x3. Cranial nerves 2 through 12 are grossly intact. ASSESSMENT AND PLAN 1. Shortness of breath with elevated d-dimer of unclear etiology. VQ scan was intermediate probability for pulmonary embolism. Discussed with Dr. Stephens and CAT scan of the chest without contrast will be ordered to rule out other causes of shortness of breath including tumor. Ultrasound of the bilateral lower e xtremities ordered as well. She will remain on heparin drip for now. Echocardiogram ordered. 2. Acute kidney injury secondary to poor oral intake. Continue IV fluids of 0.9 normal saline at 130 mL per hour. Recheck electrolytes and renal function in the morning, renal ultrasound. 3. Electrolyte abnormalities with hypocalcemia and hypomagnesemia status post replacement. 4. Elevated troponins. 1 more troponin will be requested and if this is elevated, we will obtain cardiology consult. Patient has no complaints of chest pain. 5. Breast cancer with metastatic disease to the bone and liver. 6. Metastatic disease to the liver. GI consult, recheck liver function tests tomorrow. Continue morphine as needed for pain, Zofran for nausea. 7. Ascites and elevated liver function tests. Consult GI. Consult with interventional radiology for paracentesis on Mondays. 8. Chronic anemia of chronic illness. Monitor. 9. Hypertension. Continue lisinopril 40 mg daily with parameters. 10. Chronic gout. Continue allopurinol 300 mg daily. 11. Recent dental extraction, stable. 12. Hyperlipidemia. Hold statin. 13. Gastroesophageal reflux disease and GI prophylaxis. Continue Protonix 40 mg IV daily 14. Recurrent depression. Continue Effexor XR 75 mg daily. 15. DVT prophylaxis. Continue heparin drip for now. Patient will be admitted to the hospital for a minimum of 2 night stay. DISCHARGE PLAN home. Impression and plan of care have been directed as dictated by the signing physician. Ally Bearden nurse practitioner acting as scribe for signing physician. Past Medical History Past Medical History: Cancer, Hyperlipidemia, Hypertension Additional Past Medical History / Comment(s): left breast cancer, gout, arthritis in knee History of Any Multi-Drug Resistant Organisms: None Reported Past Surgical History: Breast Surgery, Cholecystectomy, Hysterectomy, Orthopedic Surgery Additional Past Surgical History / Comment(s): Knee scope. Left rotator cuff repair. Right arm tendon release. Lasik eye surgery. Left breast lumpectomy 2016 Past Anesthesia/Blood Transfusion Reactions: No Reported Reaction Past Psychological History: No Psychological Hx Reported Smoking Status: Never smoker Past Alcohol Use History: Occasional Past Drug Use History: None Reported Medications and Allergies Home Medications Medication Instructions Recorded Confirmed Type Atorvastatin Calcium [Lipitor] 10 mg PO DAILY 11/03/16 11/21/20 History Lansoprazole [Prevacid] 15 mg PO DAILY 11/03/16 11/21/20 History Venlafaxine HCl ER [Effexor Xr] 75 mg PO DAILY 11/03/16 11/21/20 History allopurinoL [Zyloprim] 300 mg PO DAILY 11/03/16 11/21/20 History lisinopriL [Zestril] 40 mg PO DAILY 12/05/18 11/21/20 History Alpelisib [Piqray] 2 tab PO DAILY 11/21/20 11/21/20 History fentaNYL 25MCG/HR PATCH [Duragesic 1 patch TRANSDERM Q72H 11/21/20 11/21/20 History 25MCG/HR] sitaGLIPtin PHOS/metFORMIN HCL 1 cap PO BID 11/21/20 11/21/20 History [Janumet 50-1,000 mg Tablet] Allergies Allergy/AdvReac Type Severity Reaction Status Date / Time No Known Allergies Allergy Verified 11/21/20 16:18 Physical Exam Vitals: Vital Signs Temp Pulse Resp BP BP BP Pulse Ox 11/22/20 08:00 97.9 F 143/84 92 L 11/22/20 04:00 98.1 F 118/66 92 L 11/22/20 02:00 18 128/62 99 11/22/20 00:00 97.8 F 101 H 19 128/62 95 11/21/20 23:28 105 H 17 124/69 96 11/21/20 23:22 130/62 11/21/20 23:10 99 30 H 124/69 96 11/21/20 23:01 96 22 124/69 96 11/21/20 22:51 98 18 124/69 96 11/21/20 22:41 98 10 L 124/69 95 11/21/20 22:30 102 H 29 H 124/69 95 11/21/20 22:20 97.5 F L 102 H 18 124/69 124/69 96 11/21/20 22:10 97.7 F 102 H 18 130/62 96 11/21/20 21:50 101 H 20 11/21/20 21:47 102 H 18 130/62 96 11/21/20 21:40 98 28 H 11/21/20 21:30 101 H 20 11/21/20 21:20 108 H 19 11/21/20 21:10 113 H 25 H 11/21/20 21:00 110 H 19 95 11/21/20 20:50 112 H 21 95 11/21/20 20:40 117 H 21 96 11/21/20 20:30 118 H 19 97 11/21/20 20:20 121 H 22 97 11/21/20 20:10 114 H 24 98 11/21/20 20:00 124 H 16 98 11/21/20 19:50 121 H 15 98 11/21/20 19:40 105 H 24 96 11/21/20 19:30 104 H 11 L 98 11/21/20 19:20 112 H 22 98 11/21/20 19:10 99 21 98 11/21/20 19:00 101 H 16 96 11/21/20 18:50 101 H 18 97 11/21/20 18:40 99 26 H 98 11/21/20 18:30 97.6 F 102 H 22 120/73 96 11/21/20 18:20 100 14 98 11/21/20 18:10 109 H 14 95 11/21/20 18:00 101 H 19 96 11/21/20 16:30 104 H 29 H 94 L 11/21/20 16:20 102 H 20 94 L 11/21/20 16:10 101 H 19 95 11/21/20 16:00 105 H 18 95 11/21/20 15:50 102 H 23 97 11/21/20 15:40 110 H 16 11/21/20 15:20 104 H 21 121/76 98 11/21/20 15:10 99 19 96 11/21/20 13:40 98.0 F 112 H 22 105/72 98 Intake and Output 11/21/20 11/22/20 11/22/20 22:59 06:59 14:59 Intake Total 94.403 1103.315 230 Output Total 600 0 Balance 94.403 503.315 230 Intake: Intake, IV Titration 94.403 1103.315 130 Amount Heparin Sod,Pork in 0.45% 94.403 63.315 NaCl 25,000 unit In 0.45 % NaCl 1 250ml.bag @ 18 UNITS/KG/HR 15.35 mls/hr IV .[id number] LIO Rx#: [id number] Sodium Chloride 0.9% 1, 1040 130 000 ml @ 130 mls/hr IV . [id number] LIO Rx#:[id number] Blood Product 100 Output: Urine 600 0 Other: # Voids 0 Weight 85.275 kg 86.3 kg Results CBC & Chem 7: 11/22/20 03:50 11/22/20 03:50 Labs: Abnormal Lab Results - Last 24 Hours (Table) 11/21/20 11/21/20 11/21/20 Range/Units 14:29 14:29 14:29 WBC 12.5 H (3.8-10.6) k/uL RBC (3.80-5.40) m/uL Hgb (11.4-16.0) gm/dL Hct (34.0-46.0) % RDW 15.6 H (11.5-15.5) % Neutrophils # 10.0 H (1.3-7.7) k/uL APTT (22.0-30.0) sec D-Dimer 7.11 H (<0.60) mg/L FEU Chloride 112 H (98-107) mmol/L Carbon Dioxide 18 L (22-30) mmol/L BUN 38 H (7-17) mg/dL Creatinine 2.70 H (0.52-1.04) mg/dL Glucose 120 H (74-99) mg/dL Calcium 8.1 L (8.4-10.2) mg/dL Ionized Calcium Kellee (4.5-5.3) mg/dL Magnesium 1.1 L (1.6-2.3) mg/dL AST 382 H (14-36) U/L ALT 219 H (4-34) U/L Alkaline Phosphatase 553 H (38-126) U/L Troponin I (0.000-0.034) ng/mL 11/21/20 11/21/20 11/21/20 Range/Units 14:29 18:20 22:01 WBC (3.8-10.6) k/uL RBC (3.80-5.40) m/uL Hgb (11.4-16.0) gm/dL Hct (34.0-46.0) % RDW (11.5-15.5) % Neutrophils # (1.3-7.7) k/uL APTT >200.0 H* (22.0-30.0) sec D-Dimer (<0.60) mg/L FEU Chloride (98-107) mmol/L Carbon Dioxide (22-30) mmol/L BUN (7-17) mg/dL Creatinine (0.52-1.04) mg/dL Glucose (74-99) mg/dL Calcium (8.4-10.2) mg/dL Ionized Calcium Kellee (4.5-5.3) mg/dL Magnesium (1.6-2.3) mg/dL AST (14-36) U/L ALT (4-34) U/L Alkaline Phosphatase (38-126) U/L Troponin I 0.037 H* 0.046 H* (0.000-0.034) ng/mL 11/21/20 11/22/20 11/22/20 Range/Units 22:01 03:50 03:50 WBC 11.8 H (3.8-10.6) k/uL RBC 3.25 L (3.80-5.40) m/uL Hgb 10.5 L (11.4-16.0) gm/dL Hct 32.4 L (34.0-46.0) % RDW 15.8 H (11.5-15.5) % Neutrophils # 9.6 H (1.3-7.7) k/uL APTT (22.0-30.0) sec D-Dimer (<0.60) mg/L FEU Chloride 116 H (98-107) mmol/L Carbon Dioxide 16 L (22-30) mmol/L BUN 34 H (7-17) mg/dL Creatinine 2.43 H (0.52-1.04) mg/dL Glucose 101 H (74-99) mg/dL Calcium 6.3 L* (8.4-10.2) mg/dL Ionized Calcium Kellee (4.5-5.3) mg/dL Magnesium (1.6-2.3) mg/dL AST (14-36) U/L ALT (4-34) U/L Alkaline Phosphatase (38-126) U/L Troponin I 0.045 H* (0.000-0.034) ng/mL 11/22/20 11/22/20 Range/Units 03:50 05:37 WBC (3.8-10.6) k/uL RBC (3.80-5.40) m/uL Hgb (11.4-16.0) gm/dL Hct (34.0-46.0) % RDW (11.5-15.5) % Neutrophils # (1.3-7.7) k/uL APTT >200.0 H* (22.0-30.0) sec D-Dimer (<0.60) mg/L FEU Chloride (98-107) mmol/L Carbon Dioxide (22-30) mmol/L BUN (7-17) mg/dL Creatinine (0.52-1.04) mg/dL Glucose (74-99) mg/dL Calcium (8.4-10.2) mg/dL Ionized Calcium Kellee 4.2 L (4.5-5.3) mg/dL Magnesium 1.0 L (1.6-2.3) mg/dL AST (14-36) U/L ALT (4-34) U/L Alkaline Phosphatase (38-126) U/L Troponin I (0.000-0.034) ng/mL Thrombosis Risk Factor Assmnt - Choose All That Apply Any of the Below Risk Factors Present?: Yes Each Factor Represents 1 point: Minor surgery planned, Oral contraceptives or hormone replacement therapy Other Risk Factors: Yes Each Risk Factor Represents 2 Points: Age 61-74 years, Malignancy Other congenital or acquired thrombophilia - If yes, enter type in comment: No Thrombosis Risk Factor Assessment Total Risk Factor Score: 6 Thrombosis Risk Factor Assessment Level: High Risk
--- NOTE | 2020-11-22 12:37 | US ---
EXAMINATION TYPE: US venous doppler duplex LE BI DATE OF EXAM: 11/22/2020 12:17 PM COMPARISON: VQ scan CLINICAL HISTORY: elevated dimer, sob. Breast CA with metastasis SIDE PERFORMED: Bilateral TECHNIQUE: The lower extremity deep venous system is examined utilizing real time linear array sonog osvaldo with graded compression, doppler sonography and color-flow sonography. VESSELS IMAGED: Common Femoral Vein Deep Femoral Vein Greater Saphenous Vein * Femoral Vein Popliteal Vein Small Saphenous Vein * Proximal Calf Veins (* superficial vessels) Right Leg: Negative for DVT Left Leg: Negative for DVT IMPRESSION: 1. Bilateral lower extremity ultrasound negative for deep venous thrombosis
--- NOTE | 2020-11-22 12:44 | US ---
EXAMINATION TYPE: US kidneys/renal and bladder DATE OF EXAM: 11/22/2020 COMPARISON: CT CLINICAL HISTORY: JILLIAN. Acute respiratory insufficiency; Breast CA with metastasis EXAM MEASUREMENTS: Right Kidney: 9.9 x 6.4 x 4.3 cm Left Kidney: 9.3 x 5.6 x 5.8 cm Post Void Residual Volume: minimal bladder fluid seen as patient voided 60 minutes prior to this US Right Kidney: inferior cortical cyst seen = 1.6 x 1.5 x 1.6cm Left Kidney: hypoechoic, oval mass = 2.6 x 2.7 x 2.1cm is noted at adrenal level/ superior left kidne y and may be left adrenal adenoma noted on prior medical imaging here Bladder: limited distended Bilateral Jets seen: no RLQ ascites noted = 8.4cm Fluid Pocket seen. There is no evidence for hydronephrosis at this point in time. No nephrolithiasis is seen. The urina ry bladder is anechoic as visualized. IMPRESSION: 1. Left adrenal adenoma not excluded. This could be evaluated with CT abdomen. 2. Small amount of free fluid within the pelvis and right lower quadrant. 3. Right renal cyst lower pole.
--- NOTE | 2020-11-22 14:12 | CT ---
EXAMINATION TYPE: CT chest wo con DATE OF EXAM: 11/22/2020 COMPARISON: 10/21/2017 HISTORY: shortness of breath CT DLP: 426.5 mGycm, Automated exposure control for dose reduction was used. CONTRAST: Performed injected with 0 mL of Isovue 300. TECHNIQUE: Axial images were obtained at 5 mm thick sections. Reconstructed images are reviewed on [employer] computer in the coronal plane. FINDINGS: Portion of the thyroid visualized is normal. No suspicious lung nodules or focal infiltrates are present. Minimal bilateral pleural effusions are present. No enlarged mediastinal or hilar adenopathy is evident. The ascending aorta diameter at the level o f the main pulmonary artery is 3.5 cm. The main pulmonary artery diameter at the bifurcation is 2.6 cm. Mild coronary artery calcifications present. Limited CT sections are obtained through the upper abdomen. Note is made of ascites adjacent to the l iver and spleen. Left adrenal gland is enlarged measuring 3.8 cm transverse. IMPRESSIONS: 1. No acute intrathoracic abnormality. 2. Abdominal Ascites. 3. Enlarged left adrenal gland, present previously, smaller than comparison. 4. Liver appears very heterogenous suspicious for underlying metastasis. Additional workup of the eduardo er is recommended. 5. Study is without intravenous contrast. Pulmonary embolism cannot be evaluated.
[2020-11-22] MEDS: CALCIUM CARBONATE 500 MG CHEWABLE PO PRN (17:24)
[2020-11-22] MEDS: PANTOPRAZOLE 40 MG/10 ML VIAL IVP SCH ×2 (17:24→23:20)
[2020-11-22] MEDS: HEPARIN SOD,PORK IN 0.45% NACL 25,000 UNIT in 0.45% NACL 1 250ML.BAG IV SCH (17:24)
[2020-11-22 20:32] LABS: Glucose,Whole Blood 142 mg/dL (75-99)
--- NOTE | 2020-11-22 21:09 | P.CONS ---
History of Present Illness - Reason for Consult Consult date: 11/22/20 SOB, Met Breast Cancer - History of Present Illness Ms García is a 65-year-old white female well known to our service. She follows with Dr. Diaz in the outpatient setting. The patient was initially diagnosed with locally advanced breast cancer in 08/23 and treated with neoadjuvant chemotherapy with dose dense Adriamycin and Cytoxan, followed by dose dense Taxol. She then underwent partial mastectomy with lymph node dissection in late 2016, revealing significant residual tumor and 16/16 lymph nodes involved. At that time there was no obvious metastatic disease. The patient was thus started on Femara which she continued on despite musculoskeletal side effects. The patient developed metastatic recurrence in late 2018 and was changed to Ibrance and Faslodex. She developed progression again in late 2019, and was changed to Piqray and Faslodex. for the past few months however the patient has generally not been feeling well with persistent weakness and fatigue and generalized bone pains. She is also noted to have a steady increase in CA 15-3 as well as development of liver enzyme elevation. She had a PET scan in early 10/27 showed stable osseus metastatic disease and possibility of liver involvement, which was however interestingly a metabolic. An MRI of the liver was ordered and performe d on 11/19/20 which confirmed presence of diffuse hepatic metastatic disease. The patient be set up for a liver biopsy by the office followed by change in therapy, if metastasis were confirmed Patient states that over the past 2 days she has been feeling short of breath and of progressive manner. She denied any actual chest pain, cough or hemoptysis. She was found to be markedly hypoxic in the office in the 70% range and therefore sent to the emergency room. In the ER she was found to have occasional of 2.7 which according to her is a new finding, as well as elevation of liver enzymes the bilirubin was 1. She had a VQ scan that was indeterminate for PE. Based on her symptoms, she was started on IV heparin. Consult was placed for further evaluation and recommendations. Review of Systems Constitutional: Reports chronic pain, Reports weakness Eyes: denies blurred vision, denies pain Ears: deny: decreased hearing, ear discharge, earache, tinnitus Ears, nose, mouth and throat: Denies headache, Denies sore throat Cardiovascular: Reports shortness of breath Respiratory: Reports dyspnea Gastrointestinal: Reports nausea, Denies abdominal pain, Denies diarrhea, Denies vomiting Genitourinary: Denies dysuria, Denies hematuria Menstruation: Reports postmenopausal Musculoskeletal: Reports as per HPI Integumentary: Denies pruritus, Denies rash Neurological: Reports weakness Psychiatric: Denies anxiety, Denies depression Endocrine: Reports fatigue Hematologic/Lymphatic: Reports as per HPI Past Medical History Past Medical History: Cancer, Hyperlipidemia, Hypertension Additional Past Medical History / Comment(s): left breast cancer, gout, arthritis in knee History of Any Multi-Drug Resistant Organisms: None Reported Past Surgical History: Breast Surgery, Cholecystectomy, Hysterectomy, Orthopedic Surgery Additional Past Surgical History / Comment(s): Knee scope. Left rotator cuff repair. Right arm tendon release. Lasik eye surgery. Left breast lumpectomy 2017 Past Anesthesia/Blood Transfusion Reactions: No Reported Reaction Past Psychological History: No Psychological Hx Reported Smoking Status: Never smoker Past Alcohol Use History: Occasional Past Drug Use History: None Reported Medications and Allergies Home Medications Medication Instructions Recorded Confirmed Type Atorvastatin Calcium [Lipitor] 10 mg PO DAILY 11/03/16 11/21/20 History Lansoprazole [Prevacid] 15 mg PO DAILY 11/03/16 11/21/20 History Venlafaxine HCl ER [Effexor Xr] 75 mg PO DAILY 11/03/16 11/21/20 History allopurinoL [Zyloprim] 300 mg PO DAILY 11/03/16 11/21/20 History lisinopriL [Zestril] 40 mg PO DAILY 12/05/18 11/21/20 History Alpelisib [Piqray] 2 tab PO DAILY 11/21/20 11/21/20 History fentaNYL 25MCG/HR PATCH [Duragesic 1 patch TRANSDERM Q72H 11/21/20 11/21/20 History 25MCG/HR] sitaGLIPtin PHOS/metFORMIN HCL 1 cap PO BID 11/21/20 11/21/20 History [Janumet 50-1,000 mg Tablet] Allergies Allergy/AdvReac Type Severity Reaction Status Date / Time No Known Allergies Allergy Verified 11/21/20 16:18 Physical Exam Vitals: Vital Signs Temp Pulse Pulse Resp BP BP BP 11/22/20 19:39 97.7 F 94 16 144/77 11/22/20 15:49 97.6 F 100 18 167/83 11/22/20 12:00 98.1 F 18 154/95 11/22/20 08:00 97.9 F 143/84 11/22/20 04:00 98.1 F 118/66 11/22/20 02:00 18 128/62 11/22/20 00:00 97.8 F 101 H 19 128/62 11/21/20 23:28 105 H 17 124/69 11/21/20 23:22 130/62 11/21/20 23:10 99 30 H 124/69 11/21/20 23:01 96 22 124/69 11/21/20 22:51 98 18 124/69 11/21/20 22:41 98 10 L 124/69 11/21/20 22:30 102 H 29 H 124/69 11/21/20 22:20 97.5 F L 102 H 18 124/69 124/69 11/21/20 22:10 97.7 F 102 H 18 130/62 11/21/20 21:50 101 H 20 11/21/20 21:47 102 H 18 130/62 11/21/20 21:40 98 28 H 11/21/20 21:30 101 H 20 11/21/20 21:20 108 H 19 11/21/20 21:10 113 H 25 H 11/21/20 21:00 110 H 19 11/21/20 20:50 112 H 21 Pulse Ox 11/22/20 19:39 96 11/22/20 15:49 99 11/22/20 12:00 11/22/20 08:00 92 L 11/22/20 04:00 92 L 11/22/20 02:00 99 11/22/20 00:00 95 11/21/20 23:28 96 11/21/20 23:22 11/21/20 23:10 96 11/21/20 23:01 96 11/21/20 22:51 96 11/21/20 22:41 95 11/21/20 22:30 95 11/21/20 22:20 96 11/21/20 22:10 96 11/21/20 21:50 11/21/20 21:47 96 11/21/20 21:40 11/21/20 21:30 11/21/20 21:20 11/21/20 21:10 11/21/20 21:00 95 11/21/20 20:50 95 Intake and Output 11/22/20 11/22/20 11/22/20 06:59 14:59 22:59 Intake Total 1103.315 533.831 281.573 Output Total 600 400 Balance 503.315 133.831 281.573 Intake: Intake, IV Titration 1103.315 433.831 41.573 Amount Heparin Sod,Pork in 0.45% 63.315 43.831 41.573 NaCl 25,000 unit In 0.45 % NaCl 1 250ml.bag @ 18 UNITS/KG/HR 15.35 mls/hr IV .[id number] [facility] Rx#: [id number] Sodium Chloride 0.9% 1, 1040 390 000 ml @ 130 mls/hr IV . Q7H42M [facility] Rx#:[id number] Oral 240 Blood Product 100 Output: Urine 600 400 Other: # Voids 0 Weight 86.3 kg 86.3 kg - Constitutional General appearance: mild distress - EENT Eyes: EOMI, PERRLA ENT: hearing grossly normal, normal oropharynx - Neck Neck: no lymphadenopathy Thyroid: bilateral: normal size - Respiratory Respiratory: bilateral: CTA - Cardiovascular Rhythm: regular Heart sounds: normal: S1, S2 - Gastrointestinal General gastrointestinal: normal bowel sounds, soft - Integumentary Integumentary: normal - Neurologic Neurologic: CNII-XII intact - Musculoskeletal Musculoskeletal: generalized weakness, strength equal bilaterally - Psychiatric Psychiatric: A&O x's 3, appropriate affect Results CBC & Chem 7: 11/22/20 03:50 11/22/20 03:50 Labs: Abnormal Lab Results - Last 24 Hours (Table) 11/21/20 11/21/20 11/22/20 Range/Units 22:01 22:01 03:50 WBC (3.8-10.6) k/uL RBC (3.80-5.40) m/uL Hgb (11.4-16.0) gm/dL Hct (34.0-46.0) % RDW (11.5-15.5) % Neutrophils # (1.3-7.7) k/uL APTT >200.0 H* (22.0-30.0) sec Chloride 116 H (98-107) mmol/L Carbon Dioxide 16 L (22-30) mmol/L BUN 34 H (7-17) mg/dL Creatinine 2.43 H (0.52-1.04) mg/dL Glucose 101 H (74-99) mg/dL POC Glucose (mg/dL) (75-99) mg/dL Calcium 6.3 L* (8.4-10.2) mg/dL Ionized Calcium Kellee (4.5-5.3) mg/dL Magnesium (1.6-2.3) mg/dL Troponin I 0.045 H* (0.000-0.034) ng/mL C-Reactive Protein (<1.0) mg/dL Lipase (23-300) U/L 11/22/20 11/22/20 11/22/20 Range/Units 03:50 03:50 05:37 WBC 11.8 H (3.8-10.6) k/uL RBC 3.25 L (3.80-5.40) m/uL Hgb 10.5 L (11.4-16.0) gm/dL Hct 32.4 L (34.0-46.0) % RDW 15.8 H (11.5-15.5) % Neutrophils # 9.6 H (1.3-7.7) k/uL APTT >200.0 H* (22.0-30.0) sec Chloride (98-107) mmol/L Carbon Dioxide (22-30) mmol/L BUN (7-17) mg/dL Creatinine (0.52-1.04) mg/dL Glucose (74-99) mg/dL POC Glucose (mg/dL) (75-99) mg/dL Calcium (8.4-10.2) mg/dL Ionized Calcium Kellee 4.2 L (4.5-5.3) mg/dL Magnesium 1.0 L (1.6-2.3) mg/dL Troponin I (0.000-0.034) ng/mL C-Reactive Protein (<1.0) mg/dL Lipase (23-300) U/L 11/22/20 11/22/20 11/22/20 Range/Units 05:37 05:37 10:03 WBC (3.8-10.6) k/uL RBC (3.80-5.40) m/uL Hgb (11.4-16.0) gm/dL Hct (34.0-46.0) % RDW (11.5-15.5) % Neutrophils # (1.3-7.7) k/uL APTT 162.0 H* (22.0-30.0) sec Chloride (98-107) mmol/L Carbon Dioxide (22-30) mmol/L BUN (7-17) mg/dL Creatinine (0.52-1.04) mg/dL Glucose (74-99) mg/dL POC Glucose (mg/dL) (75-99) mg/dL Calcium (8.4-10.2) mg/dL Ionized Calcium Kellee (4.5-5.3) mg/dL Magnesium (1.6-2.3) mg/dL Troponin I 0.042 H* (0.000-0.034) ng/mL C-Reactive Protein 6.2 H (<1.0) mg/dL Lipase 334 H (23-300) U/L 11/22/20 11/22/20 Range/Units 17:42 20:28 WBC (3.8-10.6) k/uL RBC (3.80-5.40) m/uL Hgb (11.4-16.0) gm/dL Hct (34.0-46.0) % RDW (11.5-15.5) % Neutrophils # (1.3-7.7) k/uL APTT 86.6 H (22.0-30.0) sec Chloride (98-107) mmol/L Carbon Dioxide (22-30) mmol/L BUN (7-17) mg/dL Creatinine (0.52-1.04) mg/dL Glucose (74-99) mg/dL POC Glucose (mg/dL) 142 H (75-99) mg/dL Calcium (8.4-10.2) mg/dL Ionized Calcium Kellee (4.5-5.3) mg/dL Magnesium (1.6-2.3) mg/dL Troponin I (0.000-0.034) ng/mL C-Reactive Protein (<1.0) mg/dL Lipase (23-300) U/L Comments: VQ scan report reviewed Chest x-ray: report reviewed MRI - abdomen: report reviewed Assessment and Plan (1) Acute respiratory failure Narrative/Plan: the etiology of this is unknown at this time. The patient's PET scan did not show any evidence of lung metastasis. She has mild elevation of troponin which is nonspecific. Her d-dimer was significantly elevated but this is also nonspecific in a patient with metastatic disease. - Possibility of PE is definitely a major differential. However CT angiogram was not possible, and VQ scan was indeterminate. - The case was discussed in detail with the admitting service. At this time it is felt that based on her presentation and lack of other obvious etiologies, it is reasonable to treat her with IV heparin while workup is in progress for presumed PE. CT of the chest without contrast will be ordered to check for any obvious parenchymal lung abnormality. If this is negative, it would further support that decision to treat empirically for PE. - Check Dopplers of lower extremity for DVT. - aggressive supportive care per admitting service and critical care medicine Current Visit: Yes Status: Acute Code(s): J96.00 - ACUTE RESPIRATORY FAILURE, UNSP W HYPOXIA OR HYPERCAPNIA SNOMED Code(s): 78922991 (2) Breast cancer Narrative/Plan: the patient was recently found to have most likely diffuse liver involvement on PET scan and MRI. She is to have a liver biopsy for tissue diagnosis. This is currently on hold. Imaging her condition stabilizes, I will discuss with family oncologist about scheduling it while inpatient if necessary. - Liver enzymes closely for any evidence of rapid progression Current Visit: Yes Status: Acute Code(s): C50.919 - MALIGNANT NEOPLASM OF UNSP SITE OF UNSPECIFIED FEMALE BREAST SNOMED Code(s): 456627883
[2020-11-23 06:40] LABS: Glucose,Whole Blood 116 mg/dL (75-99)
[2020-11-23] MEDS: SODIUM CHLORIDE 0.9% 1,000 ML IV SCH ×3 (06:58→16:54)
--- NOTE | 2020-11-23 08:44 | P.CONS ---
History of Present Illness - Reason for Consult Consult date: 11/22/20 Elevated liver enzymes Requesting physician: Fer Comer - Chief Complaint Shortness of breath - History of Present Illness 65-year-old female with medical history significant for hyperlipidemia, hypertension, diabetes mellitus, GERD and locally advanced breast cancer rafy mid in 08/23 and treated with neoadjuvant chemotherapy followed by partial mastectomy with lymph node dissection with metastatic recurrence in late 2018 and progression in 2020 as per oncology note to presented with shortness of breath. More recently MRI performed on 11/19/20 confirmed the presence of diffuse hepatic metastatic disease and patient was set up for liver biopsy. She presented to the hospital with reports of worsening shortness of breath over the past 48 hours. She reports being okay when sitting down however shortness of breath was significant on exertion. She had a V/Q scan which was indeterminant for pulmonary embolism. Laboratory evaluation significant for WBC 11.8, hem oglobin 10.5, platelet count 183,000. Review of Systems REVIEW OF SYSTEMS: CONSTITUTIONAL: Denies any fevers, chills, weight change or fatigue. CARDIOVASCULAR: Denies any chest pain, palpitations high or low blood pressures RESPIRATORY: Denies any hemoptysis or cough but does report shortness of breath worsened with exertion. GENITOURINARY: No dysuria or hematuria. MUSCULOSKELETAL: No weakness reported. SKIN: Denies any new rashes or lesions, jaundice or pallor. PSYCHIATRIC: Denies any depression or anxiety. NEUROLOGY: Denies headache, denies any new focal deficits. EARS/NOSE/THROAT: No recent hearing change, congestion, nasal discharge or sore throat. EYES: No pain in eyes, discharge or change in vision. GASTROINTESTINAL: As per HPI. Past Medical History Past Medical History: Cancer, Hyperlipidemia, Hypertension Additional Past Medical History / Comment(s): left breast cancer, gout, arthritis in knee History of Any Multi-Drug Resistant Organisms: None Reported Past Surgical History: Breast Surgery, Cholecystectomy, Hysterectomy, Orthopedic Surgery Additional Past Surgical History / Comment(s): Knee scope. Left rotator cuff repair. Right arm tendon release. Lasik eye surgery. Left breast lumpectomy 2017 Past Anesthesia/Blood Transfusion Reactions: No Reported Reaction Past Psychological History: No Psychological Hx Reported Smoking Status: Never smoker Past Alcohol Use History: Occasional Past Drug Use History: None Reported Additional History: Family history: Reviewed with the patient noncontributory to current medical presentation. Medications and Allergies Home Medications Medication Instructions Recorded Confirmed Type Atorvastatin Calcium [Lipitor] 10 mg PO DAILY 11/03/16 11/21/20 History Lansoprazole [Prevacid] 15 mg PO DAILY 11/03/16 11/21/20 History Venlafaxine HCl ER [Effexor Xr] 75 mg PO DAILY 11/03/16 11/21/20 History allopurinoL [Zyloprim] 300 mg PO DAILY 11/03/16 11/21/20 History lisinopriL [Zestril] 40 mg PO DAILY 12/05/18 11/21/20 History Alpelisib [Piqray] 2 tab PO DAILY 11/21/20 11/21/20 History fentaNYL 25MCG/HR PATCH [Duragesic 1 patch TRANSDERM Q72H 11/21/20 11/21/20 History 25MCG/HR] sitaGLIPtin PHOS/metFORMIN HCL 1 cap PO BID 11/21/20 11/21/20 History [Janumet 50-1,000 mg Tablet] Allergies Allergy/AdvReac Type Severity Reaction Status Date / Time No Known Allergies Allergy Verified 11/21/20 16:18 Physical Exam Vitals: Vital Signs Temp Pulse Resp BP BP BP Pulse Ox 11/22/20 08:00 97.9 F 143/84 92 L 11/22/20 04:00 98.1 F 118/66 92 L 11/22/20 02:00 18 128/62 99 11/22/20 00:00 97.8 F 101 H 19 128/62 95 11/21/20 23:28 105 H 17 124/69 96 11/21/20 23:22 130/62 11/21/20 23:10 99 30 H 124/69 96 11/21/20 23:01 96 22 124/69 96 11/21/20 22:51 98 18 124/69 96 11/21/20 22:41 98 10 L 124/69 95 11/21/20 22:30 102 H 29 H 124/69 95 11/21/20 22:20 97.5 F L 102 H 18 124/69 124/69 96 11/21/20 22:10 97.7 F 102 H 18 130/62 96 11/21/20 21:50 101 H 20 11/21/20 21:47 102 H 18 130/62 96 11/21/20 21:40 98 28 H 11/21/20 21:30 101 H 20 11/21/20 21:20 108 H 19 11/21/20 21:10 113 H 25 H 11/21/20 21:00 110 H 19 95 11/21/20 20:50 112 H 21 95 11/21/20 20:40 117 H 21 96 11/21/20 20:30 118 H 19 97 11/21/20 20:20 121 H 22 97 11/21/20 20:10 114 H 24 98 11/21/20 20:00 124 H 16 98 11/21/20 19:50 121 H 15 98 11/21/20 19:40 105 H 24 96 11/21/20 19:30 104 H 11 L 98 11/21/20 19:20 112 H 22 98 11/21/20 19:10 99 21 98 11/21/20 19:00 101 H 16 96 11/21/20 18:50 101 H 18 97 11/21/20 18:40 99 26 H 98 11/21/20 18:30 97.6 F 102 H 22 120/73 96 11/21/20 18:20 100 14 98 11/21/20 18:10 109 H 14 95 11/21/20 18:00 101 H 19 96 11/21/20 16:30 104 H 29 H 94 L 11/21/20 16:20 102 H 20 94 L 11/21/20 16:10 101 H 19 95 11/21/20 16:00 105 H 18 95 11/21/20 15:50 102 H 23 97 11/21/20 15:40 110 H 16 11/21/20 15:20 104 H 21 121/76 98 11/21/20 15:10 99 19 96 11/21/20 13:40 98.0 F 112 H 22 105/72 98 Intake and Output 11/21/20 11/22/20 11/22/20 22:59 06:59 14:59 Intake Total 94.403 1103.315 230 Output Total 600 0 Balance 94.403 503.315 230 Intake: Intake, IV Titration 94.403 1103.315 130 Amount Heparin Sod,Pork in 0.45% 94.403 63.315 NaCl 25,000 unit In 0.45 % NaCl 1 250ml.bag @ 18 UNITS/KG/HR 15.35 mls/hr IV .[id number] [facility] Rx#: [id number] Sodium Chloride 0.9% 1, 1040 130 000 ml @ 130 mls/hr IV . Q7H42M [facility] Rx#:[id number] Blood Product 100 Output: Urine 600 0 Other: # Voids 0 Weight 85.275 kg 86.3 kg On physical examination, patient appears comfortable in no apparent distress. HEAD: Normocephalic, atraumatic. EYES: No scleral icterus. No conjunctival injection. MOUTH: No lesions, tongue midline. NECK: Trachea midline, no gross abnormalities. CHEST: Decreased air entry in all lung conley. HEART: S1-S2 appreciated. ABDOMEN: Soft, obese. Bowel sounds are positive. No organomegaly. No guarding or rigidity. EXTREMITIES: No pedal edema. SKIN: No rashes, no jaundice. NEUROLOGIC: Alert and oriented x3. No focal deficits. Results CBC & Chem 7: 11/22/20 03:50 11/22/20 03:50 Labs: Abnormal Lab Results - Last 24 Hours (Table) 11/21/20 11/21/20 11/21/20 Range/Units 14:29 14:29 14:29 WBC 12.5 H (3.8-10.6) k/uL RBC (3.80-5.40) m/uL Hgb (11.4-16.0) gm/dL Hct (34.0-46.0) % RDW 15.6 H (11.5-15.5) % Neutrophils # 10.0 H (1.3-7.7) k/uL APTT (22.0-30.0) sec D-Dimer 7.11 H (<0.60) mg/L FEU Chloride 112 H (98-107) mmol/L Carbon Dioxide 18 L (22-30) mmol/L BUN 38 H (7-17) mg/dL Creatinine 2.70 H (0.52-1.04) mg/dL Glucose 120 H (74-99) mg/dL Calcium 8.1 L (8.4-10.2) mg/dL Ionized Calcium Kellee (4.5-5.3) mg/dL Magnesium 1.1 L (1.6-2.3) mg/dL AST 382 H (14-36) U/L ALT 219 H (4-34) U/L Alkaline Phosphatase 553 H (38-126) U/L Troponin I (0.000-0.034) ng/mL 11/21/20 11/21/20 11/21/20 Range/Units 14:29 18:20 22:01 WBC (3.8-10.6) k/uL RBC (3.80-5.40) m/uL Hgb (11.4-16.0) gm/dL Hct (34.0-46.0) % RDW (11.5-15.5) % Neutrophils # (1.3-7.7) k/uL APTT >200.0 H* (22.0-30.0) sec D-Dimer (<0.60) mg/L FEU Chloride (98-107) mmol/L Carbon Dioxide (22-30) mmol/L BUN (7-17) mg/dL Creatinine (0.52-1.04) mg/dL Glucose (74-99) mg/dL Calcium (8.4-10.2) mg/dL Ionized Calcium Kellee (4.5-5.3) mg/dL Magnesium (1.6-2.3) mg/dL AST (14-36) U/L ALT (4-34) U/L Alkaline Phosphatase (38-126) U/L Troponin I 0.037 H* 0.046 H* (0.000-0.034) ng/mL 11/21/20 11/22/20 11/22/20 Range/Units 22:01 03:50 03:50 WBC 11.8 H (3.8-10.6) k/uL RBC 3.25 L (3.80-5.40) m/uL Hgb 10.5 L (11.4-16.0) gm/dL Hct 32.4 L (34.0-46.0) % RDW 15.8 H (11.5-15.5) % Neutrophils # 9.6 H (1.3-7.7) k/uL APTT (22.0-30.0) sec D-Dimer (<0.60) mg/L FEU Chloride 116 H (98-107) mmol/L Carbon Dioxide 16 L (22-30) mmol/L BUN 34 H (7-17) mg/dL Creatinine 2.43 H (0.52-1.04) mg/dL Glucose 101 H (74-99) mg/dL Calcium 6.3 L* (8.4-10.2) mg/dL Ionized Calcium Kellee (4.5-5.3) mg/dL Magnesium (1.6-2.3) mg/dL AST (14-36) U/L ALT (4-34) U/L Alkaline Phosphatase (38-126) U/L Troponin I 0.045 H* (0.000-0.034) ng/mL 11/22/20 11/22/20 Range/Units 03:50 05:37 WBC (3.8-10.6) k/uL RBC (3.80-5.40) m/uL Hgb (11.4-16.0) gm/dL Hct (34.0-46.0) % RDW (11.5-15.5) % Neutrophils # (1.3-7.7) k/uL APTT >200.0 H* (22.0-30.0) sec D-Dimer (<0.60) mg/L FEU Chloride (98-107) mmol/L Carbon Dioxide (22-30) mmol/L BUN (7-17) mg/dL Creatinine (0.52-1.04) mg/dL Glucose (74-99) mg/dL Calcium (8.4-10.2) mg/dL Ionized Calcium Kellee 4.2 L (4.5-5.3) mg/dL Magnesium 1.0 L (1.6-2.3) mg/dL AST (14-36) U/L ALT (4-34) U/L Alkaline Phosphatase (38-126) U/L Troponin I (0.000-0.034) ng/mL Comments: VQ scan indeterminate for pulmonary embolism. Assessment and Plan (1) Transaminitis Narrative/Plan: 65-year-old female with multiple medical comorbidities including metastatic br east cancer with suspicion for liver metastases who presented to the ER with complaints of worsening shortness of breath. Currently she is receiving empiric therapy for suspected pulmonary embolism with VQ scan indeterminate for PE. Recent MRI on 11/19/20 was suggestive of metastatic disease to the liver. She was found to have elevation in her liver enzymes on presentation predominantly in a hepatocellular pattern with total bilirubin 0.6, alkaline phosphatase 553, AST 382 and ALT 219. She denies any prior history of liver disease, viral hepatitis, alcohol abuse or family history of liver disease. Suspicion is for elevation of liver enzymes secondary to metastatic disease to the liver. She had been scheduled for liver biopsy in outpatient setting which is currently on hold and she is receiving anticoagulation therapy. Current Visit: Yes Status: Acute Code(s): R74.01 - ELEVATION OF LEVELS OF LIVER TRANSAMINASE LEVELS SNOMED Code(s): 273746232 (2) Breast cancer Current Visit: Yes Status: Acute Code(s): C50.919 - MALIGNANT NEOPLASM OF UNSP SITE OF UNSPECIFIED FEMALE BREAST SNOMED Code(s): 788275548 Plan: Supportive care Okay for diet Continue to monitor CBC, BMP, LFTs Avoid any hepatotoxic medications Acute viral hepatitis panel ordered Oncology service following the patient, at this time liver biopsy is being defer red in the setting of anticoagulation and the case will be discussed with the patient's primary oncologist Continue other medical management as per primary team Thank you for allowing us to participate in the care of the patient
[2020-11-23] MEDS ORDERED: ALPELISIB PO SCH (09:00)
[2020-11-23] MEDS: lisinopriL 20 MG TAB PO SCH (09:31)
[2020-11-23] MEDS: allopurinoL 300 MG TAB PO SCH (09:31)
[2020-11-23] MEDS: VENLAFAXINE HCL ER 75 MG CAP PO SCH (09:31)
[2020-11-23] MEDS: CALCIUM CARBONATE 500 MG CHEWABLE PO PRN (09:31)
[2020-11-23 09:37] LABS: HCT 38.3 % (34.0-46.0); HGB 12.5 gm/dL (11.4-16.0); Hypochromasia Moderate; MCH 33.1 pg (25.0-35.0); MCHC 32.7 g/dL (31.0-37.0); MCV 101.2 fL (80.0-100.0); Macrocytosis Slight; Mean Platelet Volume 10.2; Platelet Count 197 k/uL (150-450); RBC 3.78 m/uL (3.80-5.40); WBC 14.7 k/uL (3.8-10.6)
[2020-11-23 09:50] LABS: Albumin 3.6 g/dL (3.5-5.0); Calcium 7.9 mg/dL (8.4-10.2); Magnesium 2.5 mg/dL (1.6-2.3); Potassium 4.6 mmol/L (3.5-5.1); Total Bilirubin 0.7 mg/dL (0.2-1.3); Total Protein 6.3 g/dL (6.3-8.2)
[2020-11-23] MEDS: ALPELISIB PO SCH (10:39)
[2020-11-23] MEDS: PANTOPRAZOLE 40 MG/10 ML VIAL IVP SCH ×2 (10:41→20:56)
[2020-11-23 11:38] LABS: Glucose,Whole Blood 133 mg/dL (75-99)
--- NOTE | 2020-11-23 12:46 | ECHOF ---
Referral Reason:LVF MEASUREMENTS -------- HEIGHT: 162.6 cm WEIGHT: 86.2 kg BP: 143/84 RVIDd: 3.1 cm (< 3.3) IVSd: 1.3 cm (0.6 - 1.1) LVIDd: 3.5 cm (3.9 - 5.3) LVPWd: 1.3 cm (0.6 - 1.1) IVSs: 1.6 cm LVIDs: 2.0 cm LVPWs: 1.5 cm LAESV Index (A-L): 16.97 ml/m Ao Diam: 2.9 cm (2.0 - 3.7) AV Cusp: 1.8 cm (1.5 - 2.6) LA Diam: 3.5 cm (2.7 - 3.8) MV EXCURSION: 14.924 mm (> 18.000) MV EF SLOPE: 72 mm/s (70 - 150) EPSS: 0.1 cm MV E Alvino: 0.42 m/s MV DecT: 125 ms MV A Alvino: 0.97 m/s MV E/A Ratio: 0.43 RAP: 5.00 mmHg RVSP: 18.87 mmHg FINDINGS -------- Sinus rhythm. This was a technically difficult study with suboptimal views. The left ventricular size is normal. There is mild concentric left ventricular hypertrophy. Overa ll left ventricular systolic function is normal with, an EF between 55 - 60 %. The right ventricle is normal in size. Normal LA size by volume 22+/-6 ml/m2. The right atrium was not well visualized. 5.0mg of Lumason was utilized for enhancement of images Interatrial and interventricular septum intact. The aortic valve was not well visualized. There is no evidence of aortic regurgitation. There is no evidence of aortic stenosis. There is trace mitral regurgitation. Mild tricuspid regurgitation present. There is no evidence of pulmonary hypertension. The right v entricular systolic pressure, as measured by Doppler, is 18.87mmHg. There is no pulmonic regurgitation present. The aortic root size is normal. IVC Not well visulized. There is no pericardial effusion. CONCLUSIONS -------- 1. The left ventricular size is normal. 2. There is mild concentric left ventricular hypertrophy. 3. Overall left ventricular systolic function is normal with, an EF between 55 - 60 %. 4. There is trace mitral regurgitation. 5. Mild tricuspid regurgitation present. ROLLER MACHINE OPERATOR: Dipika Chaudhry RDCS
--- NOTE | 2020-11-23 13:07 | P.PN ---
Subjective Progress Note Date: 11/23/20 HISTORY OF PRESENT ILLNESS This is a 65-year-old female patient of Dr. Comer with past medical history of diabetes mellitus type 2, hypertension, hyperlipidemia, gastroeso phageal reflux disease, recurrent depression breast cancer originally diagnosed in 2018 in remission but was recently found to have metastatic disease and has been started on chemotherapy and currently on Alpelisib. She was found have bone metastases recently and as of last week was found to have metastatic disease to the liver. She follows with Dr. Diaz and is scheduled to have a liver biopsy. Patient is presenting with complaints of shortness of breath for the past 2 weeks especially with activity. She denies having any chest pain or heaviness. No edema. No lightheadedness or dizziness, no confusion, no fever or chills. She has had diarrhea for the past week and had a small bowel movement this morning. Patient has lost her appetite. She is complaining of lower abdominal pain cramping like menstrual cramps. She also has some right upper quadrant pain with deep breathing. She is complaining of feeling quite weak and tired. Patient states that she was on ibuprofen and recently had a tooth pulled on the left side. She stopped taking ibuprofen 2 weeks ago. She has had a follow-up appointment as she was having some jaw pain which her dentist thought it was related to muscle. She did complete a course of Augmentin. Patient presented to [facility] emergency center and was found to be afebrile, initial heart rate 112, blood pressure 105/72, respiratory rate 22, pulse ox 98%. WBC 12.5, hemoglobin 13.3 platelet count 249. Sodium 140, potassium 4.9, chloride 112, CO2 18, BUN 38 creatinine 2.7, blood sugar 120. D- dimer was elevated at 7.11. Liver function tests reveal total bilirubin 0.6, AST 382, ALT 219, alkaline phosphatase 553. Lactic acid 1.4. ProBNP 620. Troponins 0.037, 0.046, 0.045. EKG was a sinus rhythm with no acute ST changes. CTA of the chest was unable to be done due to patient's elevated creatinine and VQ scan was performed which was reported as indeterminate for pulmonary embolism. COPD may be present. Chest x-rays revealed no acute cardio pulmonary process. CT of the abdomen and pelvis without contrast revealed marked diffuse hepatic metastases, diffuse osteoblastic metastatic disease, moderate ascites, predominantly. Hepatic and very splenic. Small left pleural effusion. Patient was admitted to the ICU as an overflow. Consult with oncology and GI. 11/23: Patient has been afebrile, heart rate 96, blood pressure 133/82, pulse ox 96% on room air. WBC 14.7, hemoglobin 12.5, platelet count 197. Sodium 139, potassium 4.6, chloride 116, CO2 12, BUN 25 and creatinine 1.97. Blood sugars running between 116 and 157. Total bilirubin 0.7, AST 434, ALT 217, alkaline phosphatase 600. Patient will remain on heparin drip. IV fluids decreased to 50 mL per hour. Echocardiogram reveals EF of 55-60% with trace mitral regurgitation, mild tricuspid regurgitation, mild concentric left ventricle hypertrophy. CAT scan of the chest without contrast revealed no acute intrathoracic abnormality. Abdominal ascites. Enlarged left adrenal gland present previously smaller than comparison. Liver appears very heterogeneous suspicious for underlying metastasis. Pulmonary embolism cannot be evaluated. Ultrasound of bilateral lower extremities negative for DVT. Renal ultrasound revealed left adrenal adenoma not excluded. As could be evaluated by CAT scan of the abdomen. Small amount of free fluid in the pelvis and right lower quadrant. Right renal cyst lower pole. REVIEW OF SYSTEMS Constitutional: No fever, no chills, no night sweats. Reports weight change. Reports weakness, Reports fatigue Reports lethargy. No daytime sleepiness. EENT: No headache. No blurred vision or double vision, no loss of vision. No loss of Hearing, no ringing in the ears, no dizziness. No nasal drainage or congestion. No epistaxis. No sore throat. Lungs: Reports shortness of breath, cough, no sputum production. No wheezing. Reports shortness of breath with activity. Cardiovascular: No chest pain, no lower extremity edema. No palpitations. No paroxysmal nocturnal dyspnea. No orthopnea. No lightheadedness or dizziness. No syncopal episodes. Abdominal: Reports abdominal pain. No nausea, vomiting. Reports diarrhea. No constipation. No bloody or tarry stools. Reports loss of appetite. Genitourinary: No dysuria, increased frequency, urgency. No urinary retention. Musculoskeletal: No myalgias. No muscle weakness, no gait dysfunction, no frequent falls. No back pain. No neck pain. Integumentary: No wounds, no lesions. No rash or pruritus. No unusual bruising. No change in hair or nails. Neurologic: No aphasia. No facial droop. No change in mentation. No head injury. No headache. No paralysis. No paresthesia. Psychiatric: No depression. No anxiety. No mood swings. Endocrine: No abnormal blood sugars. No weight change. No excessive sweating or thirst. No cold intolerance. PHYSICAL EXAMINATION Gen: This is a 65-year-old female. She is resting in ICU bed, is at bedside. Patient presented to be in no acute distress at rest. HEENT: Head is atraumatic, normocephalic. Pupils equal, round. Sclerae is anicteric. NECK: Supple. No JVD. No lymphadenopathy. No thyromegaly. LUNGS: Clear to auscultation. No wheezes or rhonchi. No intercostal retractions. HEART: Regular rate and rhythm. No murmur. ABDOMEN: Soft. Bowel sounds are present. No masses. right upper quadrant tenderness, bilateral lower quadrant tenderness. EXTREMITIES: No pedal edema. No calf tenderness. NEUROLOGICAL: Patient is awake, alert and oriented x3. Cranial nerves 2 through 12 are grossly intact. ASSESSMENT AND PLAN 1. Shortness of breath with elevated d-dimer of unclear etiology. VQ scan was intermediate probability for pulmonary embolism. She will remain on heparin drip empirically for possible pulmonary embolism as it cannot be excluded at this point. 2. Acute kidney injury secondary to poor oral intake. Continue IV fluids of 0.9 normal saline at 130 mL per hour. Recheck electrolytes and renal function in the morning, renal ultrasound. 3. Electrolyte abnormalities with hypocalcemia and hypomagnesemia status post replacement. 4. Elevated troponins, no acute coronary syndrome. Patient has no complaints of chest pain. 5. Breast cancer with metastatic disease to the bone and liver. 6. Metastatic disease to the liver. GI consult, recheck liver function tests tomorrow. Continue morphine as needed for pain, Zofran for nausea. 7. Ascites and elevated liver function tests. Consult GI. Consult with interventional radiology for paracentesis on Mondays. 8. Chronic anemia of chronic illness. Monitor. 9. Hypertension. Continue lisinopril 40 mg daily with parameters. 10. Chronic gout. Continue allopurinol 300 mg daily. 11. Recent dental extraction, stable. 12. Hyperlipidemia. Hold statin. 13. Gastroesophageal reflux disease and GI prophylaxis. Continue Protonix 40 mg IV daily 14. Recurrent depression. Continue Effexor XR 75 mg daily. 15. DVT prophylaxis. Continue heparin drip for now. DISCHARGE PLAN home. Impression and plan of care have been directed as dictated by the signing physician. Ally Bearden nurse practitioner acting as scribe for signing physician. Objective - Vital Signs Vital signs: Vital Signs Temp 98.2 F 11/23/20 09:28 Pulse 96 11/23/20 09:28 Resp 18 11/23/20 09:28 BP 133/82 11/23/20 09:28 Pulse Ox 96 11/23/20 09:28 Intake & Output 11/22/20 11/23/20 11/23/20 18:59 06:59 18:59 Intake Total 803.124 56.749 240 Output Total 400 Balance 403.124 56.749 240 Weight 86.3 kg 87.5 kg Intake: Intake, IV Titration 463.124 56.749 Amount Heparin Sod,Pork in 0.45% 73.124 56.749 NaCl 25,000 unit In 0.45 % NaCl 1 250ml.bag @ 18 UNITS/KG/HR 15.35 mls/hr IV .[id number] [facility] Rx#: [id number] Sodium Chloride 0.9% 1, 390 000 ml @ 130 mls/hr IV . Q7H42M [facility] Rx#:[id number] Oral 240 240 Blood Product 100 Output: Urine 400 - Labs CBC & Chem 7: 11/23/20 09:05 11/23/20 09:05 Labs: Abnormal Lab Results - Last 24 Hours (Table) 11/22/20 11/22/20 11/22/20 Range/Units 05:37 05:37 10:03 WBC (3.8-10.6) k/uL RBC (3.80-5.40) m/uL MCV (80.0-100.0) fL RDW (11.5-15.5) % APTT 162.0 H* (22.0-30.0) sec POC Glucose (mg/dL) (75-99) mg/dL Troponin I 0.042 H* (0.000-0.034) ng/mL C-Reactive Protein 6.2 H (<1.0) mg/dL Lipase 334 H (23-300) U/L 11/22/20 11/22/20 11/23/20 Range/Units 17:42 20:28 01:41 WBC (3.8-10.6) k/uL RBC (3.80-5.40) m/uL MCV (80.0-100.0) fL RDW (11.5-15.5) % APTT 86.6 H 71.1 H (22.0-30.0) sec POC Glucose (mg/dL) 142 H (75-99) mg/dL Troponin I (0.000-0.034) ng/mL C-Reactive Protein (<1.0) mg/dL Lipase (23-300) U/L 11/23/20 11/23/20 Range/Units 06:19 09:05 WBC 14.7 H (3.8-10.6) k/uL RBC 3.78 L (3.80-5.40) m/uL MCV 101.2 H (80.0-100.0) fL RDW 16.0 H (11.5-15.5) % APTT (22.0-30.0) sec POC Glucose (mg/dL) 116 H (75-99) mg/dL Troponin I (0.000-0.034) ng/mL C-Reactive Protein (<1.0) mg/dL Lipase (23-300) U/L
[2020-11-23 16:41] LABS: Glucose,Whole Blood 133 mg/dL (75-99)
[2020-11-23] MEDS: HEPARIN SOD,PORK IN 0.45% NACL 25,000 UNIT in 0.45% NACL 1 250ML.BAG IV SCH (16:53)
[2020-11-23 21:09] LABS: Glucose,Whole Blood 173 mg/dL (75-99)
[2020-11-24 06:40] LABS: Glucose,Whole Blood 133 mg/dL (75-99)
--- NOTE | 2020-11-24 06:51 | P.PN ---
Subjective Progress Note Date: 11/23/20 Principal diagnosis: Elevated liver enzymes, metastatic breast cancer The patient is seen in bed today reporting abdominal pain is improved. She reports regular bowel movement. Tolerating diet. Objective - Vital Signs Vital signs: Vital Signs Temp 98.2 F 11/23/20 09:28 Pulse 96 11/23/20 09:28 Resp 18 11/23/20 09:28 BP 133/82 11/23/20 09:28 Pulse Ox 96 11/23/20 09:28 Intake & Output 11/22/20 11/23/20 11/23/20 18:59 06:59 18:59 Intake Total 803.124 56.749 240 Output Total 400 Balance 403.124 56.749 240 Weight 86.3 kg 87.5 kg Intake: Intake, IV Titration 463.124 56.749 Amount Heparin Sod,Pork in 0.45% 73.124 56.749 NaCl 25,000 unit In 0.45 % NaCl 1 250ml.bag @ 18 UNITS/KG/HR 15.35 mls/hr IV .[id number] [facility] Rx#: [id number] Sodium Chloride 0.9% 1, 390 000 ml @ 130 mls/hr IV . Q7H42M [facility] Rx#:[id number] Oral 240 240 Blood Product 100 Output: Urine 400 - Exam On physical examination, patient appears comfortable in no apparent distress. HEAD: Normocephalic, atraumatic. EYES: No scleral icterus. No conjunctival injection. MOUTH: No lesions, tongue midline. NECK: Trachea midline, no gross abnormalities. ABDOMEN: Soft, moderately distended. Bowel sounds are positive. No organomegaly. No guarding or rigidity. EXTREMITIES: No pedal edema. SKIN: No rashes, no jaundice. NEUROLOGIC: Alert and oriented x3. No focal deficits. - Labs CBC & Chem 7: 11/23/20 09:05 11/23/20 09:05 Labs: Abnormal Lab Results - Last 24 Hours (Table) 11/22/20 11/22/20 11/22/20 Range/Units 05:37 05:37 10:03 WBC (3.8-10.6) k/uL RBC (3.80-5.40) m/uL MCV (80.0-100.0) fL RDW (11.5-15.5) % APTT 162.0 H* (22.0-30.0) sec Chloride (98-107) mmol/L Carbon Dioxide (22-30) mmol/L BUN (7-17) mg/dL Creatinine (0.52-1.04) mg/dL Glucose (74-99) mg/dL POC Glucose (mg/dL) (75-99) mg/dL Calcium (8.4-10.2) mg/dL Magnesium (1.6-2.3) mg/dL AST (14-36) U/L ALT (4-34) U/L Alkaline Phosphatase (38-126) U/L Troponin I 0.042 H* (0.000-0.034) ng/mL C-Reactive Protein 6.2 H (<1.0) mg/dL Lipase 334 H (23-300) U/L 11/22/20 11/22/20 11/23/20 Range/Units 17:42 20:28 01:41 WBC (3.8-10.6) k/uL RBC (3.80-5.40) m/uL MCV (80.0-100.0) fL RDW (11.5-15.5) % APTT 86.6 H 71.1 H (22.0-30.0) sec Chloride (98-107) mmol/L Carbon Dioxide (22-30) mmol/L BUN (7-17) mg/dL Creatinine (0.52-1.04) mg/dL Glucose (74-99) mg/dL POC Glucose (mg/dL) 142 H (75-99) mg/dL Calcium (8.4-10.2) mg/dL Magnesium (1.6-2.3) mg/dL AST (14-36) U/L ALT (4-34) U/L Alkaline Phosphatase (38-126) U/L Troponin I (0.000-0.034) ng/mL C-Reactive Protein (<1.0) mg/dL Lipase (23-300) U/L 11/23/20 11/23/20 11/23/20 Range/Units 06:19 09:05 09:05 WBC 14.7 H (3.8-10.6) k/uL RBC 3.78 L (3.80-5.40) m/uL MCV 101.2 H (80.0-100.0) fL RDW 16.0 H (11.5-15.5) % APTT (22.0-30.0) sec Chloride 116 H (98-107) mmol/L Carbon Dioxide 12 L (22-30) mmol/L BUN 25 H (7-17) mg/dL Creatinine 1.97 H (0.52-1.04) mg/dL Glucose 157 H (74-99) mg/dL POC Glucose (mg/dL) 116 H (75-99) mg/dL Calcium 7.9 L (8.4-10.2) mg/dL Magnesium 2.5 H (1.6-2.3) mg/dL AST 434 H (14-36) U/L ALT 217 H (4-34) U/L Alkaline Phosphatase 610 H (38-126) U/L Troponin I (0.000-0.034) ng/mL C-Reactive Protein (<1.0) mg/dL Lipase (23-300) U/L 11/23/20 Range/Units 09:05 WBC (3.8-10.6) k/uL RBC (3.80-5.40) m/uL MCV (80.0-100.0) fL RDW (11.5-15.5) % APTT 46.0 H (22.0-30.0) sec Chloride (98-107) mmol/L Carbon Dioxide (22-30) mmol/L BUN (7-17) mg/dL Creatinine (0.52-1.04) mg/dL Glucose (74-99) mg/dL POC Glucose (mg/dL) (75-99) mg/dL Calcium (8.4-10.2) mg/dL Magnesium (1.6-2.3) mg/dL AST (14-36) U/L ALT (4-34) U/L Alkaline Phosphatase (38-126) U/L Troponin I (0.000-0.034) ng/mL C-Reactive Protein (<1.0) mg/dL Lipase (23-300) U/L Assessment and Plan (1) Transaminitis Narrative/Plan: 65-year-old female with multiple medical comorbidities including metastatic breast cancer with suspicion for liver metastases who presented to the ER with complaints of worsening shortness of breath. Currently she is receiving empiric therapy for suspected pulmonary embolism with VQ scan indeterminate for PE. Recent MRI on 11/19/20 was suggestive of metastatic disease to the liver. She was found to have elevation in her liver enzymes on presentation predominantly in a hepatocellular pattern with total bilirubin 0.6, alkaline phosphatase 553, AST 382 and ALT 219. She denies any prior history of liver disease, viral hepatitis, alcohol abuse or family history of liver disease. Suspicion is for elevation of liver enzymes secondary to metastatic disease to the liver. She had been scheduled for liver biopsy in outpatient setting which is currently on hold and she is receiving anticoagulation therapy. Current Visit: Yes Status: Acute Code(s): R74.01 - ELEVATION OF LEVELS OF LIVER TRANSAMINASE LEVELS SNOMED Code(s): 892288789 (2) Breast cancer Current Visit: Yes Status: Acute Code(s): C50.919 - MALIGNANT NEOPLASM OF UNSP SITE OF UNSPECIFIED FEMALE BREAST SNOMED Code(s): 401579912 Plan: Supportive care Okay for diet Continue to monitor CBC, BMP, LFTs Avoid any hepatotoxic medications Acute viral hepatitis panel ordered Oncology service following the patient, at this time liver biopsy is being deferred in the setting of anticoagulation and the case will be discussed with the patient's primary oncologist Paracentesis with fluid studies ordered by primary team Continue other medical management as per primary team Thank you for allowing us to participate in the care of the patient
[2020-11-24] MEDS: PANTOPRAZOLE 40 MG/10 ML VIAL IVP SCH (08:03)
[2020-11-24] MEDS: VENLAFAXINE HCL ER 75 MG CAP PO SCH (08:03)
[2020-11-24] MEDS: ALPELISIB PO SCH (08:03)
[2020-11-24] MEDS: allopurinoL 300 MG TAB PO SCH (08:03)
[2020-11-24] MEDS: lisinopriL 20 MG TAB PO SCH (08:03)
[2020-11-24] MEDS: SODIUM CHLORIDE 0.9% 1,000 ML IV SCH ×2 (08:06→20:07)
[2020-11-24 08:36] LABS: Anisocytosis Slight; HGB 11.8 gm/dL (11.4-16.0); Hypochromasia Slight; MCH 32.2 pg (25.0-35.0); MCHC 32.7 g/dL (31.0-37.0); MCV 98.6 fL (80.0-100.0); Macrocytosis Slight; Mean Platelet Volume 9.5; Platelet Count 203 k/uL (150-450); Poikilocytosis Slight; RBC 3.65 m/uL (3.80-5.40); RDW 16.1 % (11.5-15.5); WBC 14.3 k/uL (3.8-10.6)
[2020-11-24 09:01] LABS: Albumin 3.2 g/dL (3.5-5.0); Bilirubin, Delta 0.4 mg/dL (0.0-0.2); Bilirubin,Unconjugated 0.2 mg/dL (0.0-1.1); Calcium 7.7 mg/dL (8.4-10.2); Potassium 4.8 mmol/L (3.5-5.1); Total Bilirubin 0.6 mg/dL (0.2-1.3); Total Protein 5.7 g/dL (6.3-8.2)
[2020-11-24 09:03] LABS: INR 1.2 (<1.2); Prothrombin Time 12.3 sec (9.0-12.0)
[2020-11-24 09:33] LABS: Uric Acid 3.8 mg/dL (3.7-7.4)
[2020-11-24] MEDS ORDERED: APIXABAN 5 MG TAB PO SCH (11:00)
--- NOTE | 2020-11-24 11:00 | P.PN ---
Subjective Progress Note Date: 11/24/20 Principal diagnosis: Metastatic Breast Cancer and Shortness of breath Objective - Vital Signs Vital signs: Vital Signs Temp 97.8 F 11/24/20 08:00 Pulse 103 H 11/24/20 08:00 Resp 18 11/24/20 08:00 BP 142/89 11/24/20 08:00 Pulse Ox 95 11/24/20 08:00 Intake & Output 11/23/20 11/24/20 11/24/20 18:59 06:59 18:59 Intake Total 720 Balance 720 Weight 87.4 kg Intake: Oral 720 Other: Voiding Method Toilet - Exam - Constitutional General appearance: mild distress - EENT Eyes: EOMI, PERRLA ENT: hearing grossly normal, normal oropharynx - Neck Neck: no lymphadenopathy Thyroid: bilateral: normal size - Respiratory Respiratory: bilateral: CTA - Cardiovascular Rhythm: regular Heart sounds: normal: S1, S2 - Gastrointestinal General gastrointestinal: normal bowel sounds, soft - Integumentary Integumentary: normal - Neurologic Neurologic: CNII-XII intact - Musculoskeletal Musculoskeletal: generalized weakness, strength equal bilaterally - Psychiatric Psychiatric: A&O x's 3, appropriate affect - Labs CBC & Chem 7: 11/24/20 08:06 11/24/20 08:06 Labs: Abnormal Lab Results - Last 24 Hours (Table) 11/23/20 11/23/20 11/23/20 Range/Units 09:05 09:05 09:05 WBC 14.7 H (3.8-10.6) k/uL RBC 3.78 L (3.80-5.40) m/uL MCV 101.2 H (80.0-100.0) fL RDW 16.0 H (11.5-15.5) % APTT 46.0 H (22.0-30.0) sec Chloride 116 H (98-107) mmol/L Carbon Dioxide 12 L (22-30) mmol/L BUN 25 H (7-17) mg/dL Creatinine 1.97 H (0.52-1.04) mg/dL Glucose 157 H (74-99) mg/dL POC Glucose (mg/dL) (75-99) mg/dL Calcium 7.9 L (8.4-10.2) mg/dL Magnesium 2.5 H (1.6-2.3) mg/dL AST 434 H (14-36) U/L ALT 217 H (4-34) U/L Alkaline Phosphatase 610 H (38-126) U/L 11/23/20 11/23/20 11/23/20 Range/Units 11:36 16:39 21:02 WBC (3.8-10.6) k/uL RBC (3.80-5.40) m/uL MCV (80.0-100.0) fL RDW (11.5-15.5) % APTT (22.0-30.0) sec Chloride (98-107) mmol/L Carbon Dioxide (22-30) mmol/L BUN (7-17) mg/dL Creatinine (0.52-1.04) mg/dL Glucose (74-99) mg/dL POC Glucose (mg/dL) 133 H 133 H 173 H (75-99) mg/dL Calcium (8.4-10.2) mg/dL Magnesium (1.6-2.3) mg/dL AST (14-36) U/L ALT (4-34) U/L Alkaline Phosphatase (38-126) U/L 11/24/20 11/24/20 Range/Units 06:04 08:06 WBC 14.3 H (3.8-10.6) k/uL RBC 3.65 L (3.80-5.40) m/uL MCV (80.0-100.0) fL RDW 16.1 H (11.5-15.5) % APTT (22.0-30.0) sec Chloride (98-107) mmol/L Carbon Dioxide (22-30) mmol/L BUN (7-17) mg/dL Creatinine (0.52-1.04) mg/dL Glucose (74-99) mg/dL POC Glucose (mg/dL) 133 H (75-99) mg/dL Calcium (8.4-10.2) mg/dL Magnesium (1.6-2.3) mg/dL AST (14-36) U/L ALT (4-34) U/L Alkaline Phosphatase (38-126) U/L Assessment and Plan Plan: VQ scan report reviewed Chest x-ray: report reviewed MRI - abdomen: report reviewed Assessment and Plan Acute respiratory failure Narrative/Plan: - CT scan did not reveal evidence of pneumonitis or metastatic disease to lungs (scan without contrast) - Given her breathing has improved after 2 days on heparin drip, VQ scan intermediate, other possibilities ruled out this is most likely related to Pulmonary Embolism. This was discussed in detail with patient, and daughter. Risks and benefits weighed closely and with her hypercoaguable state given the metastatic cancer, her improvement after treatment with anticoagulation, and her ability to tolerate heparin drip well it is felt that the benfit outweighs the risk and anticoagulation should continue at this time. After liver biopsy and paracentesis \, given no s/s bleeding may convert to PO AC therapy - Other potential contributing factors could be shunting for her widespread l iver mets, however no treatment of the liver mets have been done and her breathing has improved on heparin alone. - Hold Piqray until etiology is determined - To note Venous doppler was negative for DVT Current Visit: Yes Status: Acute Code(s): J96.00 - ACUTE RESPIRATORY FAILURE, UNSP W HYPOXIA OR HYPERCAPNIA SNOMED Code(s): 30319074 Breast cancer - Metastatic and possible prgression - Current treatment with Piqray on hold - Liver Biopsy and Paracentesis per IR, heparin drip held prior per IR protocol. Pathology from Liver to be sent for NGS testing - Repeat tumor markers Current Visit: Yes Status: Acute Code(s): C50.919 - MALIGNANT NEOPLASM OF UNSP SITE OF UNSPECIFIED FEMALE BREAST SNOMED Code(s): 834088050 Acute Renal Insuffiency: - Can be exacerbated by Piqray, hold until acute resolutions improved Increasing Liver Enzymes: - Evidence of widespread liver mets, monitor LFTs - Order placed for liver biopsy to be cordinated with paracentesis by IR given the heparin drip need at this time, message left with IR, discussed with her primary oncologist Dr. Diaz and patient's daughter and . Path from liver to be sent for NGS. Physician Attest: I have completed the full history and physical and developed the above improve and plan: Agree with dictation, dictated as a scribe
[2020-11-24] MEDS: HEPARIN SOD,PORK IN 0.45% NACL 25,000 UNIT in 0.45% NACL 1 250ML.BAG IV SCH ×2 (11:02→20:08)
[2020-11-24 11:38] LABS: Glucose,Whole Blood 117 mg/dL (75-99)
--- NOTE | 2020-11-24 12:20 | P.PN ---
Subjective Progress Note Date: 11/24/20 HISTORY OF PRESENT ILLNESS This is a 65-year-old female patient of Dr. Comer with past medical history of diabetes mellitus type 2, hypertension, hyperlipidemia, gastroeso phageal reflux disease, recurrent depression breast cancer originally diagnosed in 2018 in remission but was recently found to have metastatic disease and has been started on chemotherapy and currently on Alpelisib. She was found have bone metastases recently and as of last week was found to have metastatic disease to the liver. She follows with Dr. Diaz and is scheduled to have a liver biopsy. Patient is presenting with complaints of shortness of breath for the past 2 weeks especially with activity. She denies having any chest pain or heaviness. No edema. No lightheadedness or dizziness, no confusion, no fever or chills. She has had diarrhea for the past week and had a small bowel movement this morning. Patient has lost her appetite. She is complaining of lower abdominal pain cramping like menstrual cramps. She also has some right upper quadrant pain with deep breathing. She is complaining of feeling quite weak and tired. Patient states that she was on ibuprofen and recently had a tooth pulled on the left side. She stopped taking ibuprofen 2 weeks ago. She has had a follow-up appointment as she was having some jaw pain which her dentist thought it was related to muscle. She did complete a course of Augmentin. Patient presented to [facility] emergency center and was found to be afebrile, initial heart rate 112, blood pressure 105/72, respiratory rate 22, pulse ox 98%. WBC 12.5, hemoglobin 13.3 platelet count 249. Sodium 140, potassium 4.9, chloride 112, CO2 18, BUN 38 creatinine 2.7, blood sugar 120. D- dimer was elevated at 7.11. Liver function tests reveal total bilirubin 0.6, AST 382, ALT 219, alkaline phosphatase 553. Lactic acid 1.4. ProBNP 620. Troponins 0.037, 0.046, 0.045. EKG was a sinus rhythm with no acute ST changes. CTA of the chest was unable to be done due to patient's elevated creatinine and VQ scan was performed which was reported as indeterminate for pulmonary embolism. COPD may be present. Chest x-rays revealed no acute cardio pulmonary process. CT of the abdomen and pelvis without contrast revealed marked diffuse hepatic metastases, diffuse osteoblastic metastatic disease, moderate ascites, predominantly. Hepatic and very splenic. Small left pleural effusion. Patient was admitted to the ICU as an overflow. Consult with oncology and GI. 11/23: Patient has been afebrile, heart rate 96, blood pressure 133/82, pulse ox 96% on room air. WBC 14.7, hemoglobin 12.5, platelet count 197. Sodium 139, potassium 4.6, chloride 116, CO2 12, BUN 25 and creatinine 1.97. Blood sugars running between 116 and 157. Total bilirubin 0.7, AST 434, ALT 217, alkaline phosphatase 600. Patient will remain on heparin drip. IV fluids decreased to 50 mL per hour. Echocardiogram reveals EF of 55-60% with trace mitral regurgitation, mild tricuspid regurgitation, mild concentric left ventricle hypertrophy. CAT scan of the chest without contrast revealed no acute intrathoracic abnormality. Abdominal ascites. Enlarged left adrenal gland present previously smaller than comparison. Liver appears very heterogeneous suspicious for underlying metastasis. Pulmonary embolism cannot be evaluated. Ultrasound of bilateral lower extremities negative for DVT. Renal ultrasound revealed left adrenal adenoma not excluded. As could be evaluated by CAT scan of the abdomen. Small amount of free fluid in the pelvis and right lower quadrant. Right renal cyst lower pole. 11/24: Patient states that she has been up to the bathroom and shortness of breath is improved with activity and in general she is feeling better. She did have diarrhea again today which seemed to have been improved yesterday. Dr. Diaz has discontinued Piqray which may have contributed to diarrhea and renal failure. Patient is on heparin drip which is currently on hold for liver biopsy and paracentesis scheduled this afternoon. We will plan to start eliquis 10 mg twice daily this evening and discontinue the heparin drip completely. Patient has been afebrile, heart rate 103, blood pressure 142/89 and pulse ox 95% on room air. Repeat blood work reveals WBC 14.3, hemoglobin 11.8, platelet count 203. INR 1.2. Sodium 142, potassium 4.8, chloride 117, CO2 19, BUN 19 and creatinine 1.64. Blood sugars are running between 117 173. AST 466, ALT 229, alkaline phosphatase 527. The patient has been seen and followed by GI and oncology. REVIEW OF SYSTEMS Constitutional: No fever, no chills, no night sweats. Reports weight change. Reports weakness, Reports fatigue Reports lethargy. No daytime sleepiness. EENT: No headache. No blurred vision or double vision, no loss of vision. No loss of Hearing, no ringing in the ears, no dizziness. No nasal drainage or congestion. No epistaxis. No sore throat. Lungs: Reports shortness of breath, cough, no sputum production. No wheezing. Reports shortness of breath with activity. Cardiovascular: No chest pain, no lower extremity edema. No palpitations. No paroxysmal nocturnal dyspnea. No orthopnea. No lightheadedness or dizziness. No syncopal episodes. Abdominal: Reports abdominal pain and tenderness. No nausea, vomiting. Reports diarrhea. No constipation. No bloody or tarry stools. Reports loss of appetite. Genitourinary: No dysuria, increased frequency, urgency. No urinary retention. Musculoskeletal: No myalgias. No muscle weakness, no gait dysfunction, no frequent falls. No back pain. No neck pain. Integumentary: No wounds, no lesions. No rash or pruritus. No unusual bruising. No change in hair or nails. Neurologic: No aphasia. No facial droop. No change in mentation. No head injury. No headache. No paralysis. No paresthesia. Psychiatric: No depression. No anxiety. No mood swings. Endocrine: No abnormal blood sugars. No weight change. No excessive sweating or thirst. No cold intolerance. PHYSICAL EXAMINATION Gen: This is a 65-year-old female. She is resting in bed, is at bedside. Patient appears to be in no acute distress at rest. HEENT: Head is atraumatic, normocephalic. Pupils equal, round. Sclerae is anicteric. NECK: Supple. No JVD. No lymphadenopathy. No thyromegaly. LUNGS: Clear to auscultation. No wheezes or rhonchi. No intercostal retractio ns. HEART: Regular rate and rhythm. No murmur. ABDOMEN: Soft. Bowel sounds are present. No masses. right upper quadrant tenderness, bilateral lower quadrant tenderness. EXTREMITIES: No pedal edema. No calf tenderness. NEUROLOGICAL: Patient is awake, alert and oriented x3. Cranial nerves 2 through 12 are grossly intact. ASSESSMENT AND PLAN 1. Shortness of breath with elevated d-dimer of unclear etiology, acute pulmonary embolism cannot be ruled out. Heparin drip will be discontinued and patient started on eliquis 10 mg twice daily oral. 2. Acute kidney injury secondary to poor oral intake. Continue IV fluids of 0.9 normal saline at 50 mL per hour. Recheck electrolytes and renal function in the morning. 3. Electrolyte abnormalities with hypocalcemia and hypomagnesemia status post replacement. 4. Elevated troponins, no acute coronary syndrome. Patient has no complaints of chest pain. 5. Breast cancer with metastatic disease to the bone and liver. 6. Metastatic disease to the liver. GI consult, recheck liver function tests tomorrow. Continue morphine as needed for pain, Zofran for nausea. Liver biopsy to be performed today by interventional radiology 7. Ascites and elevated liver function tests. Consult GI. Consult with interventional radiology for paracentesis today. 8. Chronic anemia of chronic illness. Monitor. 9. Hypertension. Continue lisinopril 40 mg daily with parameters. 10. Chronic gout. Continue allopurinol 300 mg daily. 11. Recent dental extraction, stable. 12. Hyperlipidemia. Hold statin. 13. Gastroesophageal reflux disease and GI prophylaxis. Continue Protonix 40 mg IV daily 14. Recurrent depression. Continue Effexor XR 75 mg daily. 15. DVT prophylaxis. Continue heparin drip for now. DISCHARGE PLAN home. Impression and plan of care have been directed as dictated by the signing physician. Ally Bearden nurse practitioner acting as scribe for signing physici an. Objective - Vital Signs Vital signs: Vital Signs Temp 97.8 F 11/24/20 08:00 Pulse 103 H 11/24/20 08:00 Resp 18 11/24/20 08:00 BP 142/89 11/24/20 08:00 Pulse Ox 95 11/24/20 08:00 Intake & Output 11/23/20 11/24/20 11/24/20 18:59 06:59 18:59 Intake Total 720 129.555 Balance 720 129.555 Weight 87.4 kg Intake: Intake, IV Titration 129.555 Amount Heparin Sod,Pork in 0.45% 129.555 NaCl 25,000 unit In 0.45 % NaCl 1 250ml.bag @ 18 UNITS/KG/HR 15.35 mls/hr IV .[id number] [facility] Rx#: [id number] Oral 720 Other: Voiding Method Toilet - Labs CBC & Chem 7: 11/24/20 08:06 11/24/20 08:06 Labs: Abnormal Lab Results - Last 24 Hours (Table) 11/23/20 11/23/20 11/23/20 Range/Units 11:36 16:39 21:02 WBC (3.8-10.6) k/uL RBC (3.80-5.40) m/uL RDW (11.5-15.5) % PT (9.0-12.0) sec INR (<1.2) APTT (22.0-30.0) sec Chloride (98-107) mmol/L Carbon Dioxide (22-30) mmol/L BUN (7-17) mg/dL Creatinine (0.52-1.04) mg/dL Glucose (74-99) mg/dL POC Glucose (mg/dL) 133 H 133 H 173 H (75-99) mg/dL Calcium (8.4-10.2) mg/dL Delta Bilirubin (0.0-0.2) mg/dL AST (14-36) U/L ALT (4-34) U/L Alkaline Phosphatase (38-126) U/L Total Protein (6.3-8.2) g/dL Albumin (3.5-5.0) g/dL 11/24/20 11/24/20 11/24/20 Range/Units 06:04 08:06 08:06 WBC (3.8-10.6) k/uL RBC (3.80-5.40) m/uL RDW (11.5-15.5) % PT (9.0-12.0) sec INR (<1.2) APTT 39.9 H (22.0-30.0) sec Chloride 117 H (98-107) mmol/L Carbon Dioxide 19 L (22-30) mmol/L BUN 19 H (7-17) mg/dL Creatinine 1.64 H (0.52-1.04) mg/dL Glucose 135 H (74-99) mg/dL POC Glucose (mg/dL) 133 H (75-99) mg/dL Calcium 7.7 L (8.4-10.2) mg/dL Delta Bilirubin 0.4 H (0.0-0.2) mg/dL AST 466 H (14-36) U/L ALT 229 H (4-34) U/L Alkaline Phosphatase 527 H (38-126) U/L Total Protein 5.7 L (6.3-8.2) g/dL Albumin 3.2 L (3.5-5.0) g/dL 11/24/20 11/24/20 Range/Units 08:06 08:06 WBC 14.3 H (3.8-10.6) k/uL RBC 3.65 L (3.80-5.40) m/uL RDW 16.1 H (11.5-15.5) % PT 12.3 H (9.0-12.0) sec INR 1.2 H (<1.2) APTT (22.0-30.0) sec Chloride (98-107) mmol/L Carbon Dioxide (22-30) mmol/L BUN (7-17) mg/dL Creatinine (0.52-1.04) mg/dL Glucose (74-99) mg/dL POC Glucose (mg/dL) (75-99) mg/dL Calcium (8.4-10.2) mg/dL Delta Bilirubin (0.0-0.2) mg/dL AST (14-36) U/L ALT (4-34) U/L Alkaline Phosphatase (38-126) U/L Total Protein (6.3-8.2) g/dL Albumin (3.5-5.0) g/dL
[2020-11-24] MEDS: LOPERAMIDE 2 MG CAP PO PRN (13:16)
[2020-11-24 13:18] LABS: Hepatitis A Antibody IgM Non-Reactive (Non-Reactive); Hepatitis B Core IgM Non-Reactive (Non-Reactive); Hepatitis B Surface Antigen Non-Reactive (Non-Reactive); Hepatitis C IgG Antibody Non-Reactive (Non-Reactive)
[2020-11-24 13:20] VITALS: BMI 33.0
--- NOTE | 2020-11-24 13:22 | P.PN ---
Subjective Progress Note Date: 11/24/20 Principal diagnosis: Elevated LFTs The patient is seen and examined lying in bed. She had more episodes of diarrhea today with lower abdominal cramping and some nausea. She is scheduled for paracentesis and liver biopsy today. Liver enzymes are stable. Objective - Vital Signs Vital signs: Vital Signs Temp 97.8 F 11/24/20 08:00 Pulse 103 H 11/24/20 08:00 Resp 18 11/24/20 08:00 BP 142/89 11/24/20 08:00 Pulse Ox 95 11/24/20 08:00 Intake & Output 11/23/20 11/24/20 11/24/20 18:59 06:59 18:59 Intake Total 720 129.555 Balance 720 129.555 Weight 87.4 kg Intake: Intake, IV Titration 129.555 Amount Heparin Sod,Pork in 0.45% 129.555 NaCl 25,000 unit In 0.45 % NaCl 1 250ml.bag @ 18 UNITS/KG/HR 15.35 mls/hr IV .[id number] [facility] Rx#: [id number] Oral 720 Other: Voiding Method Toilet - Exam General appearance: The patient is alert, oriented, appears in no acute distress. HET: Head is normocephalic and atraumatic. Conjunctiva pink. Sclera anicteric. Neck: Supple without lymphadenopathy. Abdomen: Soft, tender, distended with bowel sounds. No guarding or rigidity. Extremities: Normal skin color and turgor. No pedal edema Skin: No rashes, no jaundice Neurological: No focal deficits. Alert and oriented 3. - Labs CBC & Chem 7: 11/24/20 08:06 11/24/20 08:06 Labs: Abnormal Lab Results - Last 24 Hours (Table) 11/23/20 11/23/20 11/24/20 Range/Units 16:39 21:02 06:04 WBC (3.8-10.6) k/uL RBC (3.80-5.40) m/uL RDW (11.5-15.5) % PT (9.0-12.0) sec INR (<1.2) APTT (22.0-30.0) sec Chloride (98-107) mmol/L Carbon Dioxide (22-30) mmol/L BUN (7-17) mg/dL Creatinine (0.52-1.04) mg/dL Glucose (74-99) mg/dL POC Glucose (mg/dL) 133 H 173 H 133 H (75-99) mg/dL Calcium (8.4-10.2) mg/dL Delta Bilirubin (0.0-0.2) mg/dL AST (14-36) U/L ALT (4-34) U/L Alkaline Phosphatase (38-126) U/L Total Protein (6.3-8.2) g/dL Albumin (3.5-5.0) g/dL 11/24/20 11/24/20 11/24/20 Range/Units 08:06 08:06 08:06 WBC 14.3 H (3.8-10.6) k/uL RBC 3.65 L (3.80-5.40) m/uL RDW 16.1 H (11.5-15.5) % PT (9.0-12.0) sec INR (<1.2) APTT 39.9 H (22.0-30.0) sec Chloride 117 H (98-107) mmol/L Carbon Dioxide 19 L (22-30) mmol/L BUN 19 H (7-17) mg/dL Creatinine 1.64 H (0.52-1.04) mg/dL Glucose 135 H (74-99) mg/dL POC Glucose (mg/dL) (75-99) mg/dL Calcium 7.7 L (8.4-10.2) mg/dL Delta Bilirubin 0.4 H (0.0-0.2) mg/dL AST 466 H (14-36) U/L ALT 229 H (4-34) U/L Alkaline Phosphatase 527 H (38-126) U/L Total Protein 5.7 L (6.3-8.2) g/dL Albumin 3.2 L (3.5-5.0) g/dL 11/24/20 11/24/20 Range/Units 08:06 11:36 WBC (3.8-10.6) k/uL RBC (3.80-5.40) m/uL RDW (11.5-15.5) % PT 12.3 H (9.0-12.0) sec INR 1.2 H (<1.2) APTT (22.0-30.0) sec Chloride (98-107) mmol/L Carbon Dioxide (22-30) mmol/L BUN (7-17) mg/dL Creatinine (0.52-1.04) mg/dL Glucose (74-99) mg/dL POC Glucose (mg/dL) 117 H (75-99) mg/dL Calcium (8.4-10.2) mg/dL Delta Bilirubin (0.0-0.2) mg/dL AST (14-36) U/L ALT (4-34) U/L Alkaline Phosphatase (38-126) U/L Total Protein (6.3-8.2) g/dL Albumin (3.5-5.0) g/dL Assessment and Plan (1) Transaminitis Narrative/Plan: 65-year-old female with multiple medical comorbidities including metastatic breast cancer with suspicion for liver metastasis who presented to the ER with complaints of worsening shortness of breath. Currently she is receiving empiric therapy for suspected pulmonary embolism with VQ scan indeterminate for PE. Recent MRI on 11/19/2020 was suggestive of metastatic disease to the liver. She was found to have elevation in her liver enzymes on presentation predominantly in the hepatocellular pattern with total bilirubin 0.6, alkaline phosphatase 553, AST 382, and ALT 219. She denies any previous history of liver disease, viral hepatitis, alcohol abuse or family history of liver disease. Suspicion is for elevation of liver enzymes secondary to metastatic disease to the liver. She has been scheduled for liver biopsy and paracentesis. Current Visit: Yes Status: Acute Code(s): R74.01 - ELEVATION OF LEVELS OF LIVER TRANSAMINASE LEVELS SNOMED Code(s): 904091328 (2) Breast cancer Current Visit: Yes Status: Acute Code(s): C50.919 - MALIGNANT NEOPLASM OF UNSP SITE OF UNSPECIFIED FEMALE BREAST SNOMED Code(s): 445695398 Plan: 1. Continue supportive care 2. Okay for diet 3. Continue to monitor CBC, BMP, LFTs 4. Avoid hepatotoxic medications 5. Acute viral hepatitis panel ordered 6. Oncology following closely with patient, liver biopsy and paracentesis ordered 7. Continue other medical management per primary team Thank you for this consultation, we will continue to follow Dr. Tavares I agree with the dictator's note, documented as a scribe by Trish Gutierrez
[2020-11-24] MEDS ORDERED: HYDROmorphone 0.5 MG/0.5 ML SYRINGE IVP STA (15:39)
[2020-11-24] MEDS: PANTOPRAZOLE 40 MG TABLET PO SCH (16:16)
[2020-11-24] MEDS ORDERED: HEPARIN SODIUM 1,000 UN/ML (10ML VL) IV PRN (16:41)
[2020-11-24] MEDS ORDERED: HEPARIN SOD,PORK IN 0.45% NACL 25,000 UNIT in 0.45% NACL 1 250ML.BAG IV SCH (16:45)
--- NOTE | 2020-11-24 16:48 | US ---
EXAMINATION TYPE: US paracentesis abd w/image DATE OF EXAM: 11/24/2020 COMPARISON: NONE HISTORY: Ascites. PROCEDURE: Maximal barrier technique was utilized. The skin overlying a suitable pocket of fluid was localized with ultrasound and the overlying skin was prepped and draped. Ultrasound was utilized with sterile technique. Lidocaine was used for local anesthesia and a skin jayro made with a scalpel. Catheter was advanced under direct ultrasound guidance into a suitable pocket of fluid and approximately 2.1 liter s of serous fluid were removed. Catheter was withdrawn and hemostasis achieved. There is no immedia te complication; the patient is discharged in stable condition. IMPRESSION: STATUS POST ULTRASOUND GUIDED PARACENTESIS FOR PALLIATION OF ASCITES. THIS PROCEDURE WA S PERFORMED BY THE UNDERSIGNED. Specimen sent for laboratory analysis.
--- NOTE | 2020-11-24 16:49 | US ---
EXAMINATION TYPE: US biopsy liver DATE OF EXAM: 11/24/2020 HISTORY: Metastatic disease. PROCEDURE: Maximal barrier technique was utilized. After informed consent, the skin overlying a suit able path to the left lobe of liver was localized using ultrasound, the skin was prepped and draped. Ultrasound was utilized with sterile technique. Lidocaine was used for local anesthesia. A skin lissa k made with a scalpel. Under direct ultrasound guidance, an 18-gauge needle was advanced into the le ft lobe of the liver and core biopsy obtained, diffuse heterogeneity of the liver is identified, disc rete masses were difficult to identify with certainty. Hemostasis was achieved. There was no immedi ate complication and patient remained in stable condition. Specimen submitted in formalin to [facility] solomon. IMPRESSION: STATUS POST ULTRASOUND GUIDED CORE BIOPSY OF THE LEFT LOBE OF THE LIVER, PATHOLOGY LUPE Lambert PERFORMED BY THE UNDERSIGNED, additional findings above.
[2020-11-24 16:52] LABS: Glucose,Whole Blood 98 mg/dL (75-99)
[2020-11-24 17:58] LABS: Cancer Antigen 153 >4000.0 U/mL (0.0-32.3)
[2020-11-24 18:52] LABS: Appearance,BF Clear; Color,BF Yellow; Nucleated Cells, Body Fluid 63 /uL; RBC, Body Fluid 540 /uL
[2020-11-24 18:55] LABS: Mononuclear WBC,Body Fluid 94 %; Polynuclear WBC,Body Fluid 6 %; Total Cells Counted,Body Fluid 100
[2020-11-24 20:14] LABS: Glucose,Whole Blood 92 mg/dL (75-99)
[2020-11-25 01:08] LABS: Total Protein, Body Fluid 980 mg/dL
[2020-11-25 01:33] LABS: Glucose, BF Source Peritoneal Fluid; Glucose, Body Fluid 127 mg/dL; LDH, Body Fluid Source Peritoneal Fluid
[2020-11-25 02:53] LABS: Anisocytosis Slight; Basophils # (A) 0.1 k/uL (0-0.2); Basophils % (A) 1 %; Eosinophils # (A) 0.3 k/uL (0-0.7); Eosinophils % (A) 2 %; HCT 37.2 % (34.0-46.0); HGB 11.7 gm/dL (11.4-16.0); Hypochromasia Marked; Lymphocytes # (A) 1.3 k/uL (1.0-4.8); Lymphocytes % (A) 9 %; MCH 32.4 pg (25.0-35.0); MCHC 31.4 g/dL (31.0-37.0); MCV 103.4 fL (80.0-100.0); Macrocytosis Moderate; Mean Platelet Volume 9.4; Monocytes # (A) 1.2 k/uL (0-1.0); Monocytes % (A) 8 %; Neutrophils # (A) 11.1 k/uL (1.3-7.7); Neutrophils % (A) 79 %; Platelet Count 177 k/uL (150-450); Poikilocytosis Slight; RBC 3.59 m/uL (3.80-5.40); RDW 16.7 % (11.5-15.5); WBC 14.2 k/uL (3.8-10.6)
[2020-11-25 03:26] LABS: Albumin 2.9 g/dL (3.5-5.0); Calcium 7.3 mg/dL (8.4-10.2); Potassium 4.5 mmol/L (3.5-5.1); Total Bilirubin 0.9 mg/dL (0.2-1.3); Total Protein 5.2 g/dL (6.3-8.2)
[2020-11-25] MEDS: PANTOPRAZOLE 40 MG TABLET PO SCH ×2 (06:10→16:55)
[2020-11-25 06:12] LABS: Glucose,Whole Blood 103 mg/dL (75-99)
[2020-11-25] MEDS: lisinopriL 20 MG TAB PO SCH (09:57)
[2020-11-25] MEDS: VENLAFAXINE HCL ER 75 MG CAP PO SCH (09:57)
[2020-11-25] MEDS: allopurinoL 300 MG TAB PO SCH (09:58)
[2020-11-25 11:17] LABS: Glucose,Whole Blood 103 mg/dL (75-99)
[2020-11-25] MEDS: LOPERAMIDE 2 MG CAP PO PRN ×2 (13:07→20:38)
--- NOTE | 2020-11-25 14:08 | P.PN ---
Subjective Progress Note Date: 11/25/20 HISTORY OF PRESENT ILLNESS This is a 65-year-old female patient of Dr. Comer with past medical history of diabetes mellitus type 2, hypertension, hyperlipidemia, gastroeso phageal reflux disease, recurrent depression breast cancer originally diagnosed in 2018 in remission but was recently found to have metastatic disease and has been started on chemotherapy and currently on Alpelisib. She was found have bone metastases recently and as of last week was found to have metastatic disease to the liver. She follows with Dr. Diaz and is scheduled to have a liver biopsy. Patient is presenting with complaints of shortness of breath for the past 2 weeks especially with activity. She denies having any chest pain or heaviness. No edema. No lightheadedness or dizziness, no confusion, no fever or chills. She has had diarrhea for the past week and had a small bowel movement this morning. Patient has lost her appetite. She is complaining of lower abdominal pain cramping like menstrual cramps. She also has some right upper quadrant pain with deep breathing. She is complaining of feeling quite weak and tired. Patient states that she was on ibuprofen and recently had a tooth pulled on the left side. She stopped taking ibuprofen 2 weeks ago. She has had a follow-up appointment as she was having some jaw pain which her dentist thought it was related to muscle. She did complete a course of Augmentin. Patient presented to [facility] emergency center and was found to be afebrile, initial heart rate 112, blood pressure 105/72, respiratory rate 22, pulse ox 98%. WBC 12.5, hemoglobin 13.3 platelet count 249. Sodium 140, potassium 4.9, chloride 112, CO2 18, BUN 38 creatinine 2.7, blood sugar 120. D- dimer was elevated at 7.11. Liver function tests reveal total bilirubin 0.6, AST 382, ALT 219, alkaline phosphatase 553. Lactic acid 1.4. ProBNP 620. Troponins 0.037, 0.046, 0.045. EKG was a sinus rhythm with no acute ST changes. CTA of the chest was unable to be done due to patient's elevated creatinine and VQ scan was performed which was reported as indeterminate for pulmonary embolism. COPD may be present. Chest x-rays revealed no acute cardio pulmonary process. CT of the abdomen and pelvis without contrast revealed marked diffuse hepatic metastases, diffuse osteoblastic metastatic disease, moderate ascites, predominantly. Hepatic and very splenic. Small left pleural effusion. Patient was admitted to the ICU as an overflow. Consult with oncology and GI. 11/23: Patient has been afebrile, heart rate 96, blood pressure 133/82, pulse ox 96% on room air. WBC 14.7, hemoglobin 12.5, platelet count 197. Sodium 139, potassium 4.6, chloride 116, CO2 12, BUN 25 and creatinine 1.97. Blood sugars running between 116 and 157. Total bilirubin 0.7, AST 434, ALT 217, alkaline phosphatase 600. Patient will remain on heparin drip. IV fluids decreased to 50 mL per hour. Echocardiogram reveals EF of 55-60% with trace mitral regurgitation, mild tricuspid regurgitation, mild concentric left ventricle hypertrophy. CAT scan of the chest without contrast revealed no acute intrathoracic abnormality. Abdominal ascites. Enlarged left adrenal gland present previously smaller than comparison. Liver appears very heterogeneous suspicious for underlying metastasis. Pulmonary embolism cannot be evaluated. Ultrasound of bilateral lower extremities negative for DVT. Renal ultrasound revealed left adrenal adenoma not excluded. As could be evaluated by CAT scan of the abdomen. Small amount of free fluid in the pelvis and right lower quadrant. Right renal cyst lower pole. 11/24: Patient states that she has been up to the bathroom and shortness of breath is improved with activity and in general she is feeling better. She did have diarrhea again today which seemed to have been improved yesterday. Dr. Diaz has discontinued Piqray which may have contributed to diarrhea and renal failure. Patient is on heparin drip which is currently on hold for liver biopsy and paracentesis scheduled this afternoon. We will plan to start eliquis 10 mg twice daily this evening and discontinue the heparin drip completely. Patient has been afebrile, heart rate 103, blood pressure 142/89 and pulse ox 95% on room air. Repeat blood work reveals WBC 14.3, hemoglobin 11.8, platelet count 203. INR 1.2. Sodium 142, potassium 4.8, chloride 117, CO2 19, BUN 19 and creatinine 1.64. Blood sugars are running between 117 173. AST 466, ALT 229, alkaline phosphatase 527. The patient has been seen and followed by GI and oncology. 11/25: Patient underwent liver biopsy yesterday and pathology is pending. She also underwent diagnostic/therapeutic paracentesis with removal of 2.1 L of serous fluid. Abdomen is less distended today. Patient continues to have weakness. Repeat blood work reveals WBC 14.2, hemoglobin 11.7, platelet count 177. Sodium 140, potassium 4.5, chloride 115, CO2 15, BUN 15, creatinine 1.48. Blood sugar 128. AST 476, ALT 251, alkaline phosphatase 535. Prescription will be sent to her pharmacy for surya to check coverage and anticipate discharge home tomorrow. REVIEW OF SYSTEMS Constitutional: No fever, no chills, no night sweats. Reports weight change. R eports weakness, Reports fatigue Reports lethargy. No daytime sleepiness. EENT: No headache. No blurred vision or double vision, no loss of vision. No loss of Hearing, no ringing in the ears, no dizziness. No nasal drainage or congestion. No epistaxis. No sore throat. Lungs: Reports shortness of breath, cough, no sputum production. No wheezing. Reports shortness of breath with activity. Cardiovascular: No chest pain, no lower extremity edema. No palpitations. No paroxysmal nocturnal dyspnea. No orthopnea. No lightheadedness or dizziness. No syncopal episodes. Abdominal: Reports abdominal pain and tenderness, improved. No nausea, vomiting. Reports diarrhea. No constipation. No bloody or tarry stools. Reports loss of appetite. Genitourinary: No dysuria, increased frequency, urgency. No urinary retention. Musculoskeletal: No myalgias. No muscle weakness, no gait dysfunction, no frequent falls. No back pain. No neck pain. Integumentary: No wounds, no lesions. No rash or pruritus. No unusual bruising. No change in hair or nails. Neurologic: No aphasia. No facial droop. No change in mentation. No head injury. No headache. No paralysis. No paresthesia. Psychiatric: No depression. No anxiety. No mood swings. Endocrine: No abnormal blood sugars. No weight change. PHYSICAL EXAMINATION Gen: This is a 65-year-old female. She is resting in bed, is at bedside. Patient appears to be in no acute distress at rest. HEENT: Head is atraumatic, normocephalic. Pupils equal, round. Sclerae is anicteric. NECK: Supple. No JVD. No lymphadenopathy. No thyromegaly. LUNGS: Clear to auscultation. No wheezes or rhonchi. No intercostal retractions. HEART: Regular rate and rhythm. No murmur. ABDOMEN: Soft. Bowel sounds are present. No masses. No tenderness. EXTREMITIES: No pedal edema. No calf tenderness. NEUROLOGICAL: Patient is awake, alert and oriented x3. Cranial nerves 2 through 12 are grossly intact. ASSESSMENT AND PLAN 1. Shortness of breath with elevated d-dimer of unclear etiology, acute pulmonary embolism cannot be ruled out. Heparin drip will be discontinued in the morning and patient will be started on eliquis 10 mg twice daily oral starting tomorrow. 2. Acute kidney injury secondary to poor oral intake. Discontinue IV fluids. Recheck electrolytes and renal function in the morning. 3. Electrolyte abnormalities with hypocalcemia and hypomagnesemia status post replacement. 4. Elevated troponins, no acute coronary syndrome. Patient has no complaints of chest pain. 5. Breast cancer with metastatic disease to the bone and liver. 6. Metastatic disease to the liver. GI consult, recheck liver function tests tomorrow. Continue morphine as needed for pain, Zofran for nausea. Status post Liver biopsy by interventional radiology 7. Ascites and elevated liver function tests. Consult GI. Consult with interventional radiology appreciated, status post paracentesis. 8. Chronic anemia of chronic illness. Monitor. 9. Hypertension. Continue lisinopril 40 mg daily with parameters. 10. Chronic gout. Continue allopurinol 300 mg daily. 11. Recent dental extraction, stable. 12. Hyperlipidemia. Hold statin. 13. Gastroesophageal reflux disease and GI prophylaxis. Continue Protonix 40 mg IV daily 14. Recurrent depression. Continue Effexor XR 75 mg daily. 15. DVT prophylaxis. Continue heparin drip for now. DISCHARGE PLAN home on Tuesday. Impression and plan of care have been directed as dictated by the signing physician. Ally Bearden nurse practitioner acting as scribe for signing physician. Objective - Vital Signs Vital signs: Vital Signs Temp 98.0 F 11/25/20 07:48 Pulse 115 H 11/25/20 07:50 Resp 19 11/25/20 07:50 BP 139/73 11/25/20 07:48 Pulse Ox 97 11/25/20 07:48 Intake & Output 11/24/20 11/25/20 11/25/20 18:59 06:59 18:59 Intake Total 347.555 0 Balance 347.555 0 Weight 87.4 kg 85.9 kg Intake: Intake, IV Titration 129.555 Amount Heparin Sod,Pork in 0.45% 129.555 NaCl 25,000 unit In 0.45 % NaCl 1 250ml.bag @ 18 UNITS/KG/HR 15.35 mls/hr IV .[id number] [facility] Rx#: [id number] Oral 218 0 Other: Voiding Method Toilet Toilet Toilet - Labs CBC & Chem 7: 11/25/20 02:35 11/25/20 02:35 Labs: Abnormal Lab Results - Last 24 Hours (Table) 11/24/20 11/24/20 11/24/20 Range/Units 08:06 08:06 11:36 WBC (3.8-10.6) k/uL RBC (3.80-5.40) m/uL MCV (80.0-100.0) fL RDW (11.5-15.5) % Neutrophils # (1.3-7.7) k/uL Monocytes # (0-1.0) k/uL APTT (22.0-30.0) sec Chloride (98-107) mmol/L Carbon Dioxide (22-30) mmol/L Creatinine (0.52-1.04) mg/dL Glucose (74-99) mg/dL POC Glucose (mg/dL) 117 H (75-99) mg/dL Calcium (8.4-10.2) mg/dL AST (14-36) U/L ALT (4-34) U/L Alkaline Phosphatase (38-126) U/L Total Protein (6.3-8.2) g/dL Albumin (3.5-5.0) g/dL CA 15-3 Antigen >4000.0 H (0.0-32.3) U/mL CA 27-29 7766.6 H (0.0-38.5) U/mL 11/25/20 11/25/20 11/25/20 Range/Units 02:35 02:35 02:35 WBC 14.2 H (3.8-10.6) k/uL RBC 3.59 L (3.80-5.40) m/uL MCV 103.4 H (80.0-100.0) fL RDW 16.7 H (11.5-15.5) % Neutrophils # 11.1 H (1.3-7.7) k/uL Monocytes # 1.2 H (0-1.0) k/uL APTT 56.3 H (22.0-30.0) sec Chloride 115 H (98-107) mmol/L Carbon Dioxide 15 L (22-30) mmol/L Creatinine 1.48 H (0.52-1.04) mg/dL Glucose 128 H (74-99) mg/dL POC Glucose (mg/dL) (75-99) mg/dL Calcium 7.3 L (8.4-10.2) mg/dL AST 476 H (14-36) U/L ALT 241 H (4-34) U/L Alkaline Phosphatase 535 H (38-126) U/L Total Protein 5.2 L (6.3-8.2) g/dL Albumin 2.9 L (3.5-5.0) g/dL CA 15-3 Antigen (0.0-32.3) U/mL CA 27-29 (0.0-38.5) U/mL 11/25/20 Range/Units 06:11 WBC (3.8-10.6) k/uL RBC (3.80-5.40) m/uL MCV (80.0-100.0) fL RDW (11.5-15.5) % Neutrophils # (1.3-7.7) k/uL Monocytes # (0-1.0) k/uL APTT (22.0-30.0) sec Chloride (98-107) mmol/L Carbon Dioxide (22-30) mmol/L Creatinine (0.52-1.04) mg/dL Glucose (74-99) mg/dL POC Glucose (mg/dL) 103 H (75-99) mg/dL Calcium (8.4-10.2) mg/dL AST (14-36) U/L ALT (4-34) U/L Alkaline Phosphatase (38-126) U/L Total Protein (6.3-8.2) g/dL Albumin (3.5-5.0) g/dL CA 15-3 Antigen (0.0-32.3) U/mL CA 27-29 (0.0-38.5) U/mL Microbiology - Last 24 Hours (Table) 11/24/20 15:50 Gram Stain - Preliminary Paracentesis Fluid Body Fluid Culture - Preliminary 11/24/20 15:50 Anaerobic Culture - Preliminary Paracentesis Fluid
--- NOTE | 2020-11-25 14:48 | P.PN ---
Subjective Progress Note Date: 11/25/20 Principal diagnosis: Metastatic Breast Cancer and Shortness of breath Status Post Liver biopsy and paracentesis 11.24.20. She is up in chair today but is feeling a bit more short of breath. Objective - Vital Signs Vital signs: Vital Signs Temp 98.2 F 11/25/20 11:15 Pulse 95 11/25/20 11:15 Resp 18 11/25/20 11:15 BP 132/82 11/25/20 11:15 Pulse Ox 98 11/25/20 11:15 Intake & Output 11/24/20 11/25/20 11/25/20 18:59 06:59 18:59 Intake Total 347.555 0 Balance 347.555 0 Weight 87.4 kg 85.9 kg Intake: Intake, IV Titration 129.555 Amount Heparin Sod,Pork in 0.45% 129.555 NaCl 25,000 unit In 0.45 % NaCl 1 250ml.bag @ 18 UNITS/KG/HR 15.35 mls/hr IV .[id number] [facility] Rx#: [id number] Oral 218 0 Other: Voiding Method Toilet Toilet Toilet - Exam - Constitutional General appearance: mild distress - EENT Eyes: EOMI, PERRLA ENT: hearing grossly normal, normal oropharynx - Neck Neck: no lymphadenopathy Thyroid: bilateral: normal size - Respiratory Respiratory: bilateral: CTA - Cardiovascular Rhythm: regular Heart sounds: normal: S1, S2 - Gastrointestinal General gastrointestinal: normal bowel sounds, soft - Integumentary Integumentary: normal - Neurologic Neurologic: CNII-XII intact - Musculoskeletal Musculoskeletal: generalized weakness, strength equal bilaterally - Psychiatric Psychiatric: A&O x's 3, appropriate affect - Labs CBC & Chem 7: 11/25/20 02:35 11/25/20 02:35 Labs: Abnormal Lab Results - Last 24 Hours (Table) 11/24/20 11/24/20 11/25/20 Range/Units 08:06 08:06 02:35 WBC 14.2 H (3.8-10.6) k/uL RBC 3.59 L (3.80-5.40) m/uL MCV 103.4 H (80.0-100.0) fL RDW 16.7 H (11.5-15.5) % Neutrophils # 11.1 H (1.3-7.7) k/uL Monocytes # 1.2 H (0-1.0) k/uL APTT (22.0-30.0) sec Chloride (98-107) mmol/L Carbon Dioxide (22-30) mmol/L Creatinine (0.52-1.04) mg/dL Glucose (74-99) mg/dL POC Glucose (mg/dL) (75-99) mg/dL Calcium (8.4-10.2) mg/dL AST (14-36) U/L ALT (4-34) U/L Alkaline Phosphatase (38-126) U/L Total Protein (6.3-8.2) g/dL Albumin (3.5-5.0) g/dL CA 15-3 Antigen >4000.0 H (0.0-32.3) U/mL CA 27-29 7766.6 H (0.0-38.5) U/mL 11/25/20 11/25/20 11/25/20 Range/Units 02:35 02:35 06:11 WBC (3.8-10.6) k/uL RBC (3.80-5.40) m/uL MCV (80.0-100.0) fL RDW (11.5-15.5) % Neutrophils # (1.3-7.7) k/uL Monocytes # (0-1.0) k/uL APTT 56.3 H (22.0-30.0) sec Chloride 115 H (98-107) mmol/L Carbon Dioxide 15 L (22-30) mmol/L Creatinine 1.48 H (0.52-1.04) mg/dL Glucose 128 H (74-99) mg/dL POC Glucose (mg/dL) 103 H (75-99) mg/dL Calcium 7.3 L (8.4-10.2) mg/dL AST 476 H (14-36) U/L ALT 241 H (4-34) U/L Alkaline Phosphatase 535 H (38-126) U/L Total Protein 5.2 L (6.3-8.2) g/dL Albumin 2.9 L (3.5-5.0) g/dL CA 15-3 Antigen (0.0-32.3) U/mL CA 27-29 (0.0-38.5) U/mL 11/25/20 Range/Units 11:15 WBC (3.8-10.6) k/uL RBC (3.80-5.40) m/uL MCV (80.0-100.0) fL RDW (11.5-15.5) % Neutrophils # (1.3-7.7) k/uL Monocytes # (0-1.0) k/uL APTT (22.0-30.0) sec Chloride (98-107) mmol/L Carbon Dioxide (22-30) mmol/L Creatinine (0.52-1.04) mg/dL Glucose (74-99) mg/dL POC Glucose (mg/dL) 103 H (75-99) mg/dL Calcium (8.4-10.2) mg/dL AST (14-36) U/L ALT (4-34) U/L Alkaline Phosphatase (38-126) U/L Total Protein (6.3-8.2) g/dL Albumin (3.5-5.0) g/dL CA 15-3 Antigen (0.0-32.3) U/mL CA 27-29 (0.0-38.5) U/mL Microbiology - Last 24 Hours (Table) 11/24/20 15:50 Gram Stain - Preliminary Paracentesis Fluid Body Fluid Culture - Preliminary 11/24/20 15:50 Anaerobic Culture - Preliminary Paracentesis Fluid Assessment and Plan Plan: VQ scan report reviewed Chest x-ray: report reviewed MRI - abdomen: report reviewed Assessment and Plan Acute respiratory failure Narrative/Plan: - CT scan did not reveal evidence of pneumonitis or metastatic disease to tanmay gs (scan without contrast) - Given her breathing has improved after 2 days on heparin drip, VQ scan intermediate, other possibilities ruled out this is most likely related to Pulmonary Embolism. This was discussed in detail with patient, and daughter. Risks and benefits weighed closely and with her hypercoaguable state given the metastatic cancer, her improvement after treatment with ant icoagulation, and her ability to tolerate heparin drip well it is felt that the benfit outweighs the risk and anticoagulation should continue at this time. After liver biopsy and paracentesis \, given no s/s bleeding may convert to PO AC therapy - Other potential contributing factors could be shunting for her widespread liver mets, however no treatment of the liver mets have been done and her cheryl athing has improved on heparin alone. - Hold Piqray until etiology is determined - To note Venous doppler was negative for DVT Current Visit: Yes Status: Acute Code(s): J96.00 - ACUTE RESPIRATORY FAILURE, UNSP W HYPOXIA OR HYPERCAPNIA SNOMED Code(s): 56248375 Breast cancer - Metastatic and possible prgression - Current treatment with Piqray on hold - Liver Biopsy and Paracentesis per IR, heparin drip held prior per IR protocol. Pathology from Liver to be sent for NGS testing - Repeat tumor markers Current Visit: Yes Status: Acute Code(s): C50.919 - MALIGNANT NEOPLASM OF UNSP SITE OF UNSPECIFIED FEMALE BREAST SNOMED Code(s): 102367901 Acute Renal Insuffiency: - Can be exacerbated by Piqray, hold until acute resolutions improved Increasing Liver Enzymes: - Evidence of widespread liver mets, monitor LFTs - PLAN: - Status POst liver biopsy and paracentesis - Will send for NGS - Await results
--- NOTE | 2020-11-25 15:10 | P.PN ---
Subjective Progress Note Date: 11/25/20 Principal diagnosis: Elevated LFTs Patient was seen and examined sitting up in the bedside chair. She underwent Mark teases yesterday with removal of 2.1 L of fluid and a liver biopsy. Today she states she is feeling that well, states that she's having shortness of breath with exertion when she gets up to the bathroom. States she did shower today. States her abdomen does feel better today after removal of some fluid, however still feels somewhat gassy. Hepatitis panel was negative, LFTs stable with slight increase today. Objective - Vital Signs Vital signs: Vital Signs Temp 98.0 F 11/25/20 07:48 Pulse 115 H 11/25/20 07:50 Resp 19 11/25/20 07:50 BP 139/73 11/25/20 07:48 Pulse Ox 97 11/25/20 07:48 Intake & Output 11/24/20 11/25/20 11/25/20 18:59 06:59 18:59 Intake Total 347.555 0 Balance 347.555 0 Weight 87.4 kg 85.9 kg Intake: Intake, IV Titration 129.555 Amount Heparin Sod,Pork in 0.45% 129.555 NaCl 25,000 unit In 0.45 % NaCl 1 250ml.bag @ 18 UNITS/KG/HR 15.35 mls/hr IV .[id number] [facility] Rx#: [id number] Oral 218 0 Other: Voiding Method Toilet Toilet Toilet - Exam General appearance: The patient is alert, oriented, appears in no acute distress. HET: Head is normocephalic and atraumatic. Conjunctiva pink. Sclera anicteric. Neck: Supple without lymphadenopathy. Abdomen: Soft, nontender, nondistended with bowel sounds. No guarding or rigidity. Extremities: Normal skin color and turgor. No pedal edema Skin: No rashes, no jaundice Neurological: No focal deficits. Alert and oriented 3. - Labs CBC & Chem 7: 11/25/20 02:35 11/25/20 02:35 Labs: Abnormal Lab Results - Last 24 Hours (Table) 11/24/20 11/24/20 11/24/20 Range/Units 08:06 08:06 11:36 WBC (3.8-10.6) k/uL RBC (3.80-5.40) m/uL MCV (80.0-100.0) fL RDW (11.5-15.5) % Neutrophils # (1.3-7.7) k/uL Monocytes # (0-1.0) k/uL APTT (22.0-30.0) sec Chloride (98-107) mmol/L Carbon Dioxide (22-30) mmol/L Creatinine (0.52-1.04) mg/dL Glucose (74-99) mg/dL POC Glucose (mg/dL) 117 H (75-99) mg/dL Calcium (8.4-10.2) mg/dL AST (14-36) U/L ALT (4-34) U/L Alkaline Phosphatase (38-126) U/L Total Protein (6.3-8.2) g/dL Albumin (3.5-5.0) g/dL CA 15-3 Antigen >4000.0 H (0.0-32.3) U/mL CA 27-29 7766.6 H (0.0-38.5) U/mL 11/25/20 11/25/20 11/25/20 Range/Units 02:35 02:35 02:35 WBC 14.2 H (3.8-10.6) k/uL RBC 3.59 L (3.80-5.40) m/uL MCV 103.4 H (80.0-100.0) fL RDW 16.7 H (11.5-15.5) % Neutrophils # 11.1 H (1.3-7.7) k/uL Monocytes # 1.2 H (0-1.0) k/uL APTT 56.3 H (22.0-30.0) sec Chloride 115 H (98-107) mmol/L Carbon Dioxide 15 L (22-30) mmol/L Creatinine 1.48 H (0.52-1.04) mg/dL Glucose 128 H (74-99) mg/dL POC Glucose (mg/dL) (75-99) mg/dL Calcium 7.3 L (8.4-10.2) mg/dL AST 476 H (14-36) U/L ALT 241 H (4-34) U/L Alkaline Phosphatase 535 H (38-126) U/L Total Protein 5.2 L (6.3-8.2) g/dL Albumin 2.9 L (3.5-5.0) g/dL CA 15-3 Antigen (0.0-32.3) U/mL CA 27-29 (0.0-38.5) U/mL 11/25/20 Range/Units 06:11 WBC (3.8-10.6) k/uL RBC (3.80-5.40) m/uL MCV (80.0-100.0) fL RDW (11.5-15.5) % Neutrophils # (1.3-7.7) k/uL Monocytes # (0-1.0) k/uL APTT (22.0-30.0) sec Chloride (98-107) mmol/L Carbon Dioxide (22-30) mmol/L Creatinine (0.52-1.04) mg/dL Glucose (74-99) mg/dL POC Glucose (mg/dL) 103 H (75-99) mg/dL Calcium (8.4-10.2) mg/dL AST (14-36) U/L ALT (4-34) U/L Alkaline Phosphatase (38-126) U/L Total Protein (6.3-8.2) g/dL Albumin (3.5-5.0) g/dL CA 15-3 Antigen (0.0-32.3) U/mL CA 27-29 (0.0-38.5) U/mL Microbiology - Last 24 Hours (Table) 11/24/20 15:50 Gram Stain - Preliminary Paracentesis Fluid Body Fluid Culture - Preliminary 11/24/20 15:50 Anaerobic Culture - Preliminary Paracentesis Fluid Assessment and Plan (1) Transaminitis Narrative/Plan: 65-year-old female with multiple medical comorbidities including metastatic breast cancer with suspicion for liver metastasis who presented to the ER with complaints of worsening shortness of breath. Currently she is receiving empiric therapy for suspected pulmonary embolism with VQ scan indeterminate for PE. Recent MRI on 11/19/2020 was suggestive of metastatic disease to the liver. She was found to have elevation in her liver enzymes on presentation predominantly in the hepatocellular pattern with total bilirubin 0.6, alkaline phosphatase 553, AST 382, and ALT 219. She denies any previous history of liver disease, viral hepatitis, alcohol abuse or family history of liver disease. Suspicion is for elevation of liver enzymes secondary to metastatic disease to the liver. She has been scheduled for liver biopsy and paracentesis. Current Visit: Yes Status: Acute Code(s): R74.01 - ELEVATION OF LEVELS OF LIVER TRANSAMINASE LEVELS SNOMED Code(s): 583528491 (2) Breast cancer Current Visit: Yes Status: Acute Code(s): C50.919 - MALIGNANT NEOPLASM OF UNSP SITE OF UNSPECIFIED FEMALE BREAST SNOMED Code(s): 728039542 Plan: 1. Continue supportive care 2. Okay for diet 3. Continue to monitor CBC, BMP, LFTs 4. Avoid hepatotoxic medications 5. Acute viral hepatitis panel negative 6. Oncology following closely with patient, liver biopsy and paracentesis completed 7. Continue other medical management per primary team Thank you for this consultation, we will continue to follow Dr. Tavares I agree with the dictator's note, documented as a scribe by Trish Valdez.
[2020-11-25 16:32] LABS: Glucose,Whole Blood 112 mg/dL (75-99)
[2020-11-25 20:26] LABS: Glucose,Whole Blood 102 mg/dL (75-99)
[2020-11-25] MEDS: HEPARIN SOD,PORK IN 0.45% NACL 25,000 UNIT in 0.45% NACL 1 250ML.BAG IV SCH (20:34)
[2020-11-26] MEDS: ACETAMINOPHEN TAB 325 MG TAB PO PRN (03:15)
[2020-11-26] MEDS: PANTOPRAZOLE 40 MG TABLET PO SCH (06:09)
[2020-11-26 06:12] LABS: Glucose,Whole Blood 112 mg/dL (75-99)
[2020-11-26] MEDS: lisinopriL 20 MG TAB PO SCH (08:54)
[2020-11-26] MEDS: allopurinoL 300 MG TAB PO SCH (08:54)
[2020-11-26] MEDS: VENLAFAXINE HCL ER 75 MG CAP PO SCH (08:54)
--- NOTE | 2020-11-26 10:19 | P.PN ---
Subjective Progress Note Date: 11/26/20 Principal diagnosis: Metastatic Breast Cancer and Shortness of breath Still Short of breath with exertion, but overall improved. Awaiting Path from recent liver biopsy. A follow-up appointment has been made with primary oncologist Dr. Hope for next week. Objective - Vital Signs Vital signs: Vital Signs Temp 97.5 F L 11/26/20 07:49 Pulse 114 H 11/26/20 07:49 Resp 19 11/26/20 07:49 BP 150/68 11/26/20 07:49 Pulse Ox 96 11/26/20 07:49 Intake & Output 11/25/20 11/26/20 11/26/20 18:59 06:59 18:59 Intake Total 120 192.513 240 Output Total 150 Balance -30 192.513 240 Weight 86.2 kg Intake: Intake, IV Titration 192.513 Amount Heparin Sod,Pork in 0.45% 192.513 NaCl 25,000 unit In 0.45 % NaCl 1 250ml.bag @ 7 UNITS/KG/HR 6.118 mls/hr IV .Q24H [facility] Rx#: [id number] Oral 120 240 Output: Urine 150 Other: Voiding Method Toilet Toilet Toilet - Exam - Constitutional General appearance: mild distress - EENT Eyes: EOMI, PERRLA ENT: hearing grossly normal, normal oropharynx - Neck Neck: no lymphadenopathy Thyroid: bilateral: normal size - Respiratory Respiratory: bilateral: CTA - Cardiovascular Rhythm: regular Heart sounds: normal: S1, S2 - Gastrointestinal General gastrointestinal: normal bowel sounds, soft - Integumentary Integumentary: normal - Neurologic Neurologic: CNII-XII intact - Musculoskeletal Musculoskeletal: generalized weakness, strength equal bilaterally - Psychiatric Psychiatric: A&O x's 3, appropriate affect - Labs CBC & Chem 7: 11/25/20 02:35 11/25/20 02:35 Labs: Abnormal Lab Results - Last 24 Hours (Table) 11/25/20 11/25/20 11/25/20 Range/Units 11:15 16:30 20:25 APTT (22.0-30.0) sec POC Glucose (mg/dL) 103 H 112 H 102 H (75-99) mg/dL 11/26/20 11/26/20 Range/Units 02:48 06:11 APTT 84.8 H (22.0-30.0) sec POC Glucose (mg/dL) 112 H (75-99) mg/dL Microbiology - Last 24 Hours (Table) 11/24/20 15:50 Gram Stain - Preliminary Paracentesis Fluid Body Fluid Culture - Preliminary Assessment and Plan Plan: VQ scan report reviewed Chest x-ray: report reviewed MRI - abdomen: report reviewed Assessment and Plan Acute respiratory failure Narrative/Plan: - CT scan did not reveal evidence of pneumonitis or metastatic disease to lungs (scan without contrast) - Given her breathing has improved after 2 days on heparin drip, VQ scan intermediate, other possibilities ruled out this is most likely related to Pulmonary Embolism. This was discussed in detail with patient, and daughter. Risks and benefits weighed closely and with her hypercoaguable state given the metastatic cancer, her improvement after treatment with anticoagulation, and her ability to tolerate heparin drip well it is felt that the benfit outweighs the risk and anticoagulation should continue at this time. After liver biopsy and paracentesis \, given no s/s bleeding may convert to PO AC therapy - Other potential contributing factors could be shunting for her widespread liver mets, however no treatment of the liver mets have been done and her breathing has improved on heparin alone. - Hold Piqray until etiology is determined - To note Venous doppler was negative for DVT Current Visit: Yes Status: Acute Code(s): J96.00 - ACUTE RESPIRATORY FAILURE, UNSP W HYPOXIA OR HYPERCAPNIA SNOMED Code(s): 19602475 Breast cancer - Metastatic and possible prgression - Current treatment with Piqray on hold - Liver Biopsy and Paracentesis per IR, Pathology from Liver to be sent for NGS testing - Repeat tumor markers Current Visit: Yes Status: Acute Code(s): C50.919 - MALIGNANT NEOPLASM OF UNSP SITE OF UNSPECIFIED FEMALE BREAST SNOMED Code(s): 900619127 Acute Renal Insuffiency: - Can be exacerbated by Piqray, hold until acute resolutions improved Increasing Liver Enzymes: - Evidence of widespread liver mets, monitor LFTs - PLAN: - Status POst liver biopsy and paracentesis - Will send for NGS - Still Short of breath with exertion, but overall improved. Awaiting Path from recent liver biopsy. A follow-up appointment has been made with primary oncologist Dr. Hope for next week. - COntinue to Hold Piqray - PLan discharge on anticoagulation
[2020-11-26 11:07] LABS: Glucose,Whole Blood 113 mg/dL (75-99)
[2020-11-26] MEDS ORDERED: APIXABAN 5 MG TAB PO SCH (11:45)
--- NOTE | 2020-11-26 11:56 | P.DS ---
Providers Date of admission: 11/21/20 16:51 Expected date of discharge: 11/26/20 Attending physician: Mendoza Abarca MD Consults: 11/21/20 16:52 Consult Physician Urgent Consulting Provider: Joe Diaz Consult Reason/Comments: metastatic breast cancer on chemo Do you want consulting provider notified?: Yes 11/22/20 10:07 Consult Physician Routine Consulting Provider: Eran Tavares Consult Reason/Comments: elevated liver enzymes, mets Do you want consulting provider notified?: Yes Primary care physician: [facility] Course: HISTORY OF PRESENT ILLNESS This is a 65-year-old female patient of Dr. Comer with past medical history of diabetes mellitus type 2, hypertension, hyperlipidemia, gastroesophageal reflux disease, recurrent depression breast cancer originally diagnosed in 2018 in remission but was recently found to have metastatic disease and has been started on chemotherapy and currently on Alpelisib. She was found have bone metastases recently and as of last week was found to have metastatic disease to the liver. She follows with Dr. Diaz and is scheduled to have a liver biopsy. Patient is presenting with complaints of shortness of breath for the past 2 weeks especially with activity. She denies having any chest pain or heaviness. No edema. No lightheadedness or dizziness, no confusion, no fever or chills. She has had diarrhea for the past week and had a small bowel movement this morning. Patient has lost her appetite. She is complaining of lower abdominal pain cramping like menstrual cramps. She also has some right upper quadrant pain with deep breathing. She is complaining of feeling quite weak and tired. Patient states that she was on ibuprofen and recently had a tooth pulled on the left side. She stopped taking ibuprofen 2 weeks ago. She has had a follow-up appointment as she was having some jaw pain which her dentist thought it was related to muscle. She did complete a course of Augmentin. Patient presented to [facility] and was found to be afebrile, initial heart rate 112, blood pressure 105/72, respiratory rate 22, pulse ox 98%. WBC 12.5, hemoglobin 13.3 platelet count 249. Sodium 140, potassium 4.9, chloride 112, CO2 18, BUN 38 creatinine 2.7, blood sugar 120. D- dimer was elevated at 7.11. Liver function tests reveal total bilirubin 0.6, AST 382, ALT 219, alkaline phosphatase 553. Lactic acid 1.4. ProBNP 620. Troponins 0.037, 0.046, 0.045. EKG was a sinus rhythm with no acute ST changes. CTA of the chest was unable to be done due to patient's elevated creatinine and VQ scan was performed which was reported as indeterminate for pulmonary embolism. COPD may be present. Chest x-rays revealed no acute cardio pulmonary process. CT of the abdomen and pelvis without contrast revealed marked diffuse hepatic metastases, diffuse osteoblastic metastatic disease, moderate ascites, predominantly. Hepatic and very splenic. Small left pleural effusion. Patient was admitted to the ICU as an overflow. Consult with oncology and GI. 11/23: Patient has been afebrile, heart rate 96, blood pressure 133/82, pulse ox 96% on room air. WBC 14.7, hemoglobin 12.5, platelet count 197. Sodium 139, potassium 4.6, chloride 116, CO2 12, BUN 25 and creatinine 1.97. Blood sugars running between 116 and 157. Total bilirubin 0.7, AST 434, ALT 217, alkaline phosphatase 600. Patient will remain on heparin drip. IV fluids decreased to 50 mL per hour. Echocardiogram reveals EF of 55-60% with trace mitral regurgitation, mild tricuspid regurgitation, mild concentric left ventricle hypertrophy. CAT scan of the chest without contrast revealed no acute intrathoracic abnormality. Abdominal ascites. Enlarged left adrenal gland present previously smaller than comparison. Liver appears very heterogeneous suspicious for underlying metastasis. Pulmonary embolism cannot be evaluated. Ultrasound of bilateral lower extremities negative for DVT. Renal ultrasound revealed left adrenal adenoma not excluded. As could be evaluated by CAT scan of the abdomen. Small amount of free fluid in the pelvis and right lower quadrant. Right renal cyst lower pole. 11/24: Patient states that she has been up to the bathroom and shortness of breath is improved with activity and in general she is feeling better. She did have diarrhea again today which seemed to have been improved yesterday. Dr. Diaz has discontinued Piqray which may have contributed to diarrhea and renal failure. Patient is on heparin drip which is currently on hold for liver biopsy and paracentesis scheduled this afternoon. We will plan to start eliquis 10 mg twice daily this evening and discontinue the heparin drip completely. Patient has been afebrile, heart rate 103, blood pressure 142/89 and pulse ox 95% on room air. Repeat blood work reveals WBC 14.3, hemoglobin 11.8, platelet count 203. INR 1.2. Sodium 142, potassium 4.8, chloride 117, CO2 19, BUN 19 and creatinine 1.64. Blood sugars are running between 117 173. AST 466, ALT 229, alkaline phosphatase 527. The patient has been seen and followed by GI and oncology. 11/25: Patient underwent liver biopsy yesterday and pathology is pending. She also underwent diagnostic/therapeutic paracentesis with removal of 2.1 L of serous fluid. Abdomen is less distended today. Patient continues to have weakness. Repeat blood work reveals WBC 14.2, hemoglobin 11.7, platelet count 177. Sodium 140, potassium 4.5, chloride 115, CO2 15, BUN 15, creatinine 1.48. Blood sugar 128. AST 476, ALT 251, alkaline phosphatase 535. Prescription will be sent to her pharmacy for eliquis to check coverage and anticipate discharge home tomorrow. 11/26: Patient will be transferred off heparin drip and start eliquis 10 mg twice daily. Patient has been afebrile, heart rate 110, blood pressure 142/66, pulse ox 98% on room air. Blood sugars are running between 102 and 113. We have ordered SOFY hose and incentive spirometry prior to discharge. Patient will be discharged home today in stable condition. ASSESSMENT AND PLAN 1. Shortness of breath with elevated d-dimer, suspect pulmonary embolism. 2. Acute kidney injury secondary to poor oral intake. 3. Electrolyte abnormalities with hypocalcemia and hypomagnesemia status post replacement. 4. Elevated troponins, no acute coronary syndrome. 5. Breast cancer with metastatic disease to the bone and liver. 6. Metastatic disease to the liver. 7. Ascites and elevated liver function tests. 8. Chronic anemia of chronic illness. 9. Hypertension. 10. Chronic gout. 11. Recent dental extraction, stable. 12. Hyperlipidemia. 13. Gastroesophageal reflux disease. 14. Recurrent depression. DISCHARGE PLAN Home Impression and plan of care have been directed as dictated by the signing physician. Ally Bearden nurse practitioner acting as scribe for signing physici an. Patient Condition at Discharge: Good Plan - Discharge Summary Discharge Rx Participant: Yes New Discharge Prescriptions: New Loperamide [Imodium] 2 mg PO QID PRN cap PRN Reason: Diarrhea Apixaban [Eliquis Starter Pack (for VTE)] 0 mg PO DIRECTED 30 Days #1 pack Continue Lansoprazole [Prevacid] 15 mg PO DAILY allopurinoL [Zyloprim] 300 mg PO DAILY Venlafaxine HCl ER [Effexor XR] 75 mg PO DAILY lisinopriL [Zestril] 40 mg PO DAILY fentaNYL 25MCG/HR PATCH [Duragesic 25MCG/HR] 1 patch TRANSDERM Q72H Discontinued Atorvastatin Calcium [Lipitor] 10 mg PO DAILY sitaGLIPtin PHOS/metFORMIN HCL [Janumet 50-1,000 mg Tablet] 1 cap PO BID Alpelisib [Piqray] 2 tab PO DAILY Discharge Medication List Lansoprazole [Prevacid] 15 mg PO DAILY 11/03/16 [History] Venlafaxine HCl ER [Effexor XR] 75 mg PO DAILY 11/03/16 [History] allopurinoL [Zyloprim] 300 mg PO DAILY 11/03/16 [History] lisinopriL [Zestril] 40 mg PO DAILY 12/05/18 [History] fentaNYL 25MCG/HR PATCH [Duragesic 25MCG/HR] 1 patch TRANSDERM Q72H 11/21/20 [History] Apixaban [Eliquis Starter Pack (for VTE)] 0 mg PO DIRECTED 30 Days #1 pack 11/25/20 [Rx] Loperamide [Imodium] 2 mg PO QID PRN cap 11/26/20 [Rx] Follow up Appointment(s)/Referral(s): Antonia Villatoro PAC [REFERRING] - As Needed (Gastroenterology) Fer Comer MD [Primary Care Provider] - 1 Week (no answer, please call to make a follow up appointment) Joe Diaz MD [STAFF PHYSICIAN] - 12/02/20 2:30 pm Patient Instructions/Handouts: Pulmonary Embolism (DC) Discharge Disposition: HOME SELF-CARE
[2020-11-26 12:05] VITALS: BP 142/66; PULSE 110; RESP 18; TEMP 97.4
--- NOTE | 2020-11-26 15:04 | P.PN ---
Subjective Progress Note Date: 11/26/20 Principal diagnosis: Elevated LFTs Patient seen and examined lying in bed. States overall she is feeling better. She did have 1 loose bowel movement this morning. States it's soft and watery. No blood seen in stool. Denies any abdominal pain, nausea, or vomiting. Patient is status post liver biopsy with pending results. Liver enzymes continue to be stable. Objective - Vital Signs Vital signs: Vital Signs Temp 97.5 F L 11/26/20 07:49 Pulse 114 H 11/26/20 07:49 Resp 19 11/26/20 07:49 BP 150/68 11/26/20 07:49 Pulse Ox 96 11/26/20 07:49 Intake & Output 11/25/20 11/26/20 11/26/20 18:59 06:59 18:59 Intake Total 120 192.513 240 Output Total 150 Balance -30 192.513 240 Weight 86.2 kg Intake: Intake, IV Titration 192.513 Amount Heparin Sod,Pork in 0.45% 192.513 NaCl 25,000 unit In 0.45 % NaCl 1 250ml.bag @ 7 UNITS/KG/HR 6.118 mls/hr IV .Q24H [facility] Rx#: [id number] Oral 120 240 Output: Urine 150 Other: Voiding Method Toilet Toilet Toilet - Exam General appearance: The patient is alert, oriented, appears in no acute dist ress. HET: Head is normocephalic and atraumatic. Conjunctiva pink. Sclera anicteric. Neck: Supple without lymphadenopathy. Abdomen: Soft, nontender, nondistended with bowel sounds. No guarding or rigidity. Extremities: Normal skin color and turgor. No pedal edema Skin: No rashes, no jaundice Neurological: No focal deficits. Alert and oriented 3. - Labs CBC & Chem 7: 11/25/20 02:35 11/25/20 02:35 Labs: Abnormal Lab Results - Last 24 Hours (Table) 11/25/20 11/25/20 11/25/20 Range/Units 11:15 16:30 20:25 APTT (22.0-30.0) sec POC Glucose (mg/dL) 103 H 112 H 102 H (75-99) mg/dL 11/26/20 11/26/20 11/26/20 Range/Units 02:48 06:11 09:50 APTT 84.8 H 39.3 H (22.0-30.0) sec POC Glucose (mg/dL) 112 H (75-99) mg/dL Microbiology - Last 24 Hours (Table) 11/24/20 15:50 Gram Stain - Preliminary Paracentesis Fluid Body Fluid Culture - Preliminary Assessment and Plan (1) Transaminitis Narrative/Plan: 65-year-old female with multiple medical comorbidities including metastatic breast cancer with suspicion for liver metastasis who presented to the ER with complaints of worsening shortness of breath. Currently she is receiving empiric therapy for suspected pulmonary embolism with VQ scan indeterminate for PE. Recent MRI on 11/19/2020 was suggestive of metastatic disease to the liver. She was found to have elevation in her liver enzymes on presentation predominantly in the hepatocellular pattern with total bilirubin 0.6, alkaline phosphatase 553, AST 382, and ALT 219. She denies any previous history of liver disease, viral hepatitis, alcohol abuse or family history of liver disease. Suspicion is for elevation of liver enzymes secondary to metastatic disease to the liver. She has been scheduled for liver biopsy and paracentesis. Current Visit: Yes Status: Acute Code(s): R74.01 - ELEVATION OF LEVELS OF LIVER TRANSAMINASE LEVELS SNOMED Code(s): 761111623 (2) Breast cancer Current Visit: Yes Status: Acute Code(s): C50.919 - MALIGNANT NEOPLASM OF UNSP SITE OF UNSPECIFIED FEMALE BREAST SNOMED Code(s): 403346310 Plan: 1. Continue supportive care 2. Okay for diet 3. Continue to monitor CBC, BMP, LFTs 4. Avoid hepatotoxic medications 5. Acute viral hepatitis panel negative 6. Oncology following closely with patient, liver biopsy and paracentesis completed 7. Continue other medical management per primary team Thank you for this consultation, patient may be discharged home with outpatient follow up as needed Dr. Tavares I agree with the dictator's note, documented as a scribe by Trish Valdez.
== END 2020-11-26 15:04 | disposition home or self-care (01) | DRG 435 ==
LOC: EC 13:37 → 3SCARD 16:51 → 2SICU 21:37 → 3SCARD 11-22 15:43
PROVIDERS: ADMIT Internal Medicine; ATTEND Internal Medicine
PROC: 0W9G3ZZ Drainage of Peritoneal Cavity, Percutaneous Approach (ICD-10-PCS; principal; 2020-11-24)
PROC: 0FB23ZX Excision of Left Lobe Liver, Percutaneous Approach, Diagnostic (ICD-10-PCS; 2020-11-24)
DX: C78.7 Secondary malignant neoplasm of liver and intrahepatic bile duct (principal); I26.99 Other pulmonary embolism without acute cor pulmonale; J96.01 Acute respiratory failure with hypoxia; N17.9 Acute kidney failure, unspecified; F33.9 Major depressive disorder, recurrent, unspecified; C79.51 Secondary malignant neoplasm of bone; R18.8 Other ascites; D68.59 Other primary thrombophilia; I10 Essential (primary) hypertension; Z92.21 Personal history of antineoplastic chemotherapy; Z79.890 Hormone replacement therapy; Z79.84 Long term (current) use of oral hypoglycemic drugs; E78.5 Hyperlipidemia, unspecified; R19.7 Diarrhea, unspecified; E83.51 Hypocalcemia; E83.42 Hypomagnesemia; R77.8 Other specified abnormalities of plasma proteins; D63.8 Anemia in other chronic diseases classified elsewhere; M1A.9XX0 Chronic gout, unspecified, without tophus (tophi); K21.9 Gastro-esophageal reflux disease without esophagitis; R68.84 Jaw pain; J44.9 Chronic obstructive pulmonary disease, unspecified; E11.9 Type 2 diabetes mellitus without complications; Z87.891 Personal history of nicotine dependence; M17.10 Unilateral primary osteoarthritis, unspecified knee; N28.1 Cyst of kidney, acquired; Z79.899 Other long term (current) drug therapy; Z82.49 Family history of ischemic heart disease and other diseases of the circulatory system; Z85.3 Personal history of malignant neoplasm of breast; Z90.710 Acquired absence of both cervix and uterus
CPT/HCPCS: 36415; 47000; 49083; 71046; 71250; 74176; 76770; 76942; 78582; 80048; 80053; 80074; 80076; 82330; 82945; 83605; 83615; 83690; 83735; 83880; 84157; 84484; 84550; 85025; 85027; 85379; 85610; 85652; 85730; 86140; 86300; 87070; 87075; 87205; 87324; 88108; 88305; 88307; 88341; 88342; 89050; 93005; 93306; 93970; 99285

== ENCOUNTER 2020-12-04 15:39 | Inpatient (IN) | payer MEDICARE, OTHER ==
[2020-12-04] MEDS ORDERED: SODIUM CHLORIDE 0.9% 500 ML 500 ML IV STA (15:43)
--- NOTE | 2020-12-04 15:47 | ED ---
General Adult HPI - General Stated complaint: SOB Time Seen by Provider: 12/04/20 15:39 Source: patient, RN notes reviewed, old records reviewed - History of Present Illness Initial comments: This is a 65-year-old female with a past medical history significant for breast cancer with metastatic disease to the bone and liver and abdomen. Patient has ascites as well. Patient also was recently diagnosed with a pulmonary embolism and is on eliquis for it. Patient comes in today because anytime she moves she has increased difficulty breathing. According to EMS when she sits still she is about 95% on room air however if she moves at all her O2 sats drop. Patient denies any pain or palpitations or discomfort per patient denies any fever chills or cough. Patient states the abdomen is getting more distended but there is no significant pain. Patient denies any calf tenderness or leg swelling - Related Data Home Medications Medication Instructions Recorded Confirmed Lansoprazole [Prevacid] 15 mg PO DAILY 11/03/16 12/04/20 Venlafaxine HCl ER [Effexor XR] 75 mg PO DAILY 11/03/16 12/04/20 allopurinoL [Zyloprim] 300 mg PO DAILY 11/03/16 12/04/20 lisinopriL [Zestril] 40 mg PO DAILY 12/05/18 12/04/20 fentaNYL 25MCG/HR PATCH [Duragesic 1 patch TRANSDERM Q72H 11/21/20 12/04/20 25MCG/HR] Apixaban [Eliquis Starter Pack 5 mg PO BID 12/04/20 12/04/20 (for VTE)] Hydrocodone/Acetaminophen [[place] 1 tab PO Q6HR PRN 12/04/20 12/04/20 7.5-325] Sennosides [Senna] 8.6 mg PO HS 12/04/20 12/04/20 polyethylene glycoL 3350 [Miralax] 17 gm PO BID 12/04/20 12/04/20 Allergies Allergy/AdvReac Type Severity Reaction Status Date / Time No Known Allergies Allergy Verified 12/04/20 17:00 Review of Systems ROS Statement: Those systems with pertinent positive or pertinent negative responses have been documented in the HPI. ROS Other: All systems not noted in ROS Statement are negative. Past Medical History Past Medical History: Cancer, Hyperlipidemia, Hypertension, Osteoarthritis (OA), Pulmonary Embolus (PE) Additional Past Medical History / Comment(s): left breast cancer with metastasis to spine,liver and abdominal cavaty, gout, arthritis in knee, suspected PE when IP last week, feet bluish on soles of aye feet-has call into Dr Diaz office at this time History of Any Multi-Drug Resistant Organisms: None Reported Past Surgical History: Breast Surgery, Cholecystectomy, Hysterectomy, Orthopedic Surgery Additional Past Surgical History / Comment(s): Left rotator cuff repair, knee arthroscopy(daughter unsure which), Right arm tendon release, Lasik eye surgery, Left breast lumpectomy 2016, paracentesis and biopsy of liver 11/25/2020 Past Anesthesia/Blood Transfusion Reactions: Postoperative Nausea & Vomiting (PONV) Smoking Status: Former smoker - Past Family History Mother Family Medical History: No Reported History General Exam - General Exam Comments Initial Comments: GENERAL: Patient is well-developed and well-nourished. Patient is nontoxic and well- hydrated and is in mild distress. ENT: Neck is soft and supple. No significant lymphadenopathy is noted. Oropharynx is clear. Moist mucous membranes. Neck has full range of motion without eliciting any pain. were felt. EYES: The sclera were anicteric and conjunctiva were pink and moist. Extraocular movements were intact and pupils were equal round and reactive to light. Eyelids were unremarkable. PULMONARY: Unlabored respirations. Good breath sounds bilaterally. No audible rales rhonchi or wheezing was noted. CARDIOVASCULAR: There is a regular rate and rhythm without any murmurs gallops or rubs. ABDOMEN: Soft and nontender with normal bowel sounds. SKIN: Skin is clear with no lesions or rashes and otherwise unremarkable. NEUROLOGIC: Patient is alert and oriented x3. Cranial nerves II through XII are grossly intact. Motor and sensory are also intact. Normal speech, volume and content. Symmetrical smile. MUSCULOSKELETAL: Normal extremities with adequate strength and full range of motion. No lower extremity swelling or edema. No calf tenderness. LYMPHATICS: No significant lymphadenopathy is noted PSYCHIATRIC: Normal psychiatric evaluation. Course Vital Signs 12/04/20 12/04/20 12/04/20 15:56 17:00 17:30 Temperature 97.4 F L Pulse Rate 116 H 111 H 113 H Respiratory 20 20 20 Rate Blood Pressure 98/64 84/69 94/62 O2 Sat by Pulse 98 99 100 Oximetry 07/29/21 07/29/21 18:23 19:35 Temperature Pulse Rate 112 H 109 H Respiratory 20 20 Rate Blood Pressure 98/68 105/67 O2 Sat by Pulse 100 100 Oximetry Medical Decision Making - Medical Decision Making EKG shows sinus tachycardia at 115 bpm WA interval is 172 QRS is 70 QT interval 320 QTC is 442. Patient's EKG shows no ST segment elevation or depression. Patient had multiple episodes of diarrhea while in the emergency department. Chest x-ray shows no acute abnormality. I will back into the room and reevaluated the patient she continued to state anytime she moved she was having difficulty breathing however while lying in bed she felt fine. Patient had elevated creatinine a low calcium and elevated troponin. I spoke with Dr. Cuevas about these issues as well as about the patient's diarrhea and a white count of 21,000. Dr. Cuevas was in agreement with admitting the patient admitted the patient I got an echo I consulted cardiology and nephrology and oncology started the patient on antibiotics - Lab Data Result diagrams: 12/04/20 16:11 12/04/20 16:11 Lab Results 12/04/20 12/04/20 12/04/20 Range/Units 16:11 16:11 16:11 WBC 21.5 H (3.8-10.6) k/uL RBC 3.90 (3.80-5.40) m/uL Hgb 12.9 (11.4-16.0) gm/dL Hct 40.6 (34.0-46.0) % MCV 104.1 H (80.0-100.0) fL MCH 33.1 (25.0-35.0) pg MCHC 31.8 (31.0-37.0) g/dL RDW 20.6 H (11.5-15.5) % Plt Count 299 (150-450) k/uL MPV 10.5 Neutrophils % 84 % Lymphocytes % 8 % Monocytes % 7 % Eosinophils % 1 % Basophils % 0 % Neutrophils # 18.0 H (1.3-7.7) k/uL Lymphocytes # 1.6 (1.0-4.8) k/uL Monocytes # 1.5 H (0-1.0) k/uL Eosinophils # 0.1 (0-0.7) k/uL Basophils # 0.1 (0-0.2) k/uL Hypochromasia Slight Poikilocytosis Slight Anisocytosis Moderate Macrocytosis Moderate PT 14.1 H (9.0-12.0) sec INR 1.4 H (<1.2) APTT 26.4 (22.0-30.0) sec Sodium 135 L (137-145) mmol/L Potassium 5.5 H (3.5-5.1) mmol/L Chloride 108 H (98-107) mmol/L Carbon Dioxide 11 L (22-30) mmol/L Anion Gap 16 mmol/L BUN 70 H (7-17) mg/dL Creatinine 3.78 H (0.52-1.04) mg/dL Est GFR (CKD-EPI)AfAm 14 (>60 ml/min/1.73 sqM) Est GFR (CKD-EPI)NonAf 12 (>60 ml/min/1.73 sqM) Glucose 98 (74-99) mg/dL Lactic Ac Sepsis Rflx Plasma Lactic Acid Robi (0.7-2.0) mmol/L Calcium 6.5 L (8.4-10.2) mg/dL Magnesium 1.7 (1.6-2.3) mg/dL Total Bilirubin 2.9 H (0.2-1.3) mg/dL AST 634 H (14-36) U/L ALT 249 H (4-34) U/L Alkaline Phosphatase 820 H (38-126) U/L Troponin I (0.000-0.034) ng/mL NT-Pro-B Natriuret Pep pg/mL Total Protein 5.8 L (6.3-8.2) g/dL Albumin 3.1 L (3.5-5.0) g/dL Urine Color Urine Appearance (Clear) Urine pH (5.0-8.0) Ur Specific [place] (1.001-1.035) Urine Protein (Negative) Urine Glucose (UA) (Negative) Urine Ketones (Negative) Urine Blood (Negative) Urine Nitrite (Negative) Urine Bilirubin (Negative) Urine Urobilinogen (<2.0) mg/dL Ur Leukocyte Esterase (Negative) Urine RBC (0-5) /hpf Hyaline Casts (0-2) /lpf Urine Mucus (None) /hpf 12/04/20 12/04/20 12/04/20 Range/Units 16:11 16:11 16:11 WBC (3.8-10.6) k/uL RBC (3.80-5.40) m/uL Hgb (11.4-16.0) gm/dL Hct (34.0-46.0) % MCV (80.0-100.0) fL MCH (25.0-35.0) pg MCHC (31.0-37.0) g/dL RDW (11.5-15.5) % Plt Count (150-450) k/uL MPV Neutrophils % % Lymphocytes % % Monocytes % % Eosinophils % % Basophils % % Neutrophils # (1.3-7.7) k/uL Lymphocytes # (1.0-4.8) k/uL Monocytes # (0-1.0) k/uL Eosinophils # (0-0.7) k/uL Basophils # (0-0.2) k/uL Hypochromasia Poikilocytosis Anisocytosis Macrocytosis PT (9.0-12.0) sec INR (<1.2) APTT (22.0-30.0) sec Sodium (137-145) mmol/L Potassium (3.5-5.1) mmol/L Chloride (98-107) mmol/L Carbon Dioxide (22-30) mmol/L Anion Gap mmol/L BUN (7-17) mg/dL Creatinine (0.52-1.04) mg/dL Est GFR (CKD-EPI)AfAm (>60 ml/min/1.73 sqM) Est GFR (CKD-EPI)NonAf (>60 ml/min/1.73 sqM) Glucose (74-99) mg/dL Lactic Ac Sepsis Rflx Plasma Lactic Acid Robi 2.4 H* (0.7-2.0) mmol/L Calcium (8.4-10.2) mg/dL Magnesium (1.6-2.3) mg/dL Total Bilirubin (0.2-1.3) mg/dL AST (14-36) U/L ALT (4-34) U/L Alkaline Phosphatase (38-126) U/L Troponin I 0.269 H* (0.000-0.034) ng/mL NT-Pro-B Natriuret Pep 515 pg/mL Total Protein (6.3-8.2) g/dL Albumin (3.5-5.0) g/dL Urine Color Urine Appearance (Clear) Urine pH (5.0-8.0) Ur Specific [place] (1.001-1.035) Urine Protein (Negative) Urine Glucose (UA) (Negative) Urine Ketones (Negative) Urine Blood (Negative) Urine Nitrite (Negative) Urine Bilirubin (Negative) Urine Urobilinogen (<2.0) mg/dL Ur Leukocyte Esterase (Negative) Urine RBC (0-5) /hpf Hyaline Casts (0-2) /lpf Urine Mucus (None) /hpf 12/04/20 12/04/20 Range/Units 17:00 17:59 WBC (3.8-10.6) k/uL RBC (3.80-5.40) m/uL Hgb (11.4-16.0) gm/dL Hct (34.0-46.0) % MCV (80.0-100.0) fL MCH (25.0-35.0) pg MCHC (31.0-37.0) g/dL RDW (11.5-15.5) % Plt Count (150-450) k/uL MPV Neutrophils % % Lymphocytes % % Monocytes % % Eosinophils % % Basophils % % Neutrophils # (1.3-7.7) k/uL Lymphocytes # (1.0-4.8) k/uL Monocytes # (0-1.0) k/uL Eosinophils # (0-0.7) k/uL Basophils # (0-0.2) k/uL Hypochromasia Poikilocytosis Anisocytosis Macrocytosis PT (9.0-12.0) sec INR (<1.2) APTT (22.0-30.0) sec Sodium (137-145) mmol/L Potassium (3.5-5.1) mmol/L Chloride (98-107) mmol/L Carbon Dioxide (22-30) mmol/L Anion Gap mmol/L BUN (7-17) mg/dL Creatinine (0.52-1.04) mg/dL Est GFR (CKD-EPI)AfAm (>60 ml/min/1.73 sqM) Est GFR (CKD-EPI)NonAf (>60 ml/min/1.73 sqM) Glucose (74-99) mg/dL Lactic Ac Sepsis Rflx Y Plasma Lactic Acid Robi (0.7-2.0) mmol/L Calcium (8.4-10.2) mg/dL Magnesium (1.6-2.3) mg/dL Total Bilirubin (0.2-1.3) mg/dL AST (14-36) U/L ALT (4-34) U/L Alkaline Phosphatase (38-126) U/L Troponin I (0.000-0.034) ng/mL NT-Pro-B Natriuret Pep pg/mL Total Protein (6.3-8.2) g/dL Albumin (3.5-5.0) g/dL Urine Color Light Yellow Urine Appearance Clear (Clear) Urine pH 5.5 (5.0-8.0) Ur Specific [place] 1.020 (1.001-1.035) Urine Protein 2+ H (Negative) Urine Glucose (UA) Negative (Negative) Urine Ketones Negative (Negative) Urine Blood 2 (Negative) Urine Nitrite Negative (Negative) Urine Bilirubin 1+ H (Negative) Urine Urobilinogen 2.0 (<2.0) mg/dL Ur Leukocyte Esterase Small (Negative) Urine RBC <1 (0-5) /hpf Hyaline Casts 1 (0-2) /lpf Urine Mucus Rare H (None) /hpf Disposition Clinical Impression: Elevated troponin, Acute renal failure, Hypocalcemia, Diarrhea, Leukocytosis, Metastatic breast cancer Disposition: ADMITTED IP TO THIS HOSP Referrals: Fer Comer MD [Primary Care Provider] - 1-2 days Time of Disposition: 20:28
[2020-12-04 16:41] LABS: Anisocytosis Moderate; Basophils # (A) 0.1 k/uL (0-0.2); Basophils % (A) 0 %; Eosinophils # (A) 0.1 k/uL (0-0.7); Eosinophils % (A) 1 %; HCT 40.6 % (34.0-46.0); HGB 12.9 gm/dL (11.4-16.0); Hypochromasia Slight; Lymphocytes # (A) 1.6 k/uL (1.0-4.8); Lymphocytes % (A) 8 %; MCH 33.1 pg (25.0-35.0); MCHC 31.8 g/dL (31.0-37.0); MCV 104.1 fL (80.0-100.0); Macrocytosis Moderate; Mean Platelet Volume 10.5; Monocytes # (A) 1.5 k/uL (0-1.0); Monocytes % (A) 7 %; Neutrophils % (A) 84 %; Platelet Count 299 k/uL (150-450); Poikilocytosis Slight; RDW 20.6 % (11.5-15.5); WBC 21.5 k/uL (3.8-10.6)
[2020-12-04 16:52] LABS: INR 1.4 (<1.2); Partial Thromboplastin Time 26.4 sec (22.0-30.0); Prothrombin Time 14.1 sec (9.0-12.0)
[2020-12-04 16:55] LABS: Albumin 3.1 g/dL (3.5-5.0); Calcium 6.5 mg/dL (8.4-10.2); Magnesium 1.7 mg/dL (1.6-2.3); Potassium 5.5 mmol/L (3.5-5.1); Total Bilirubin 2.9 mg/dL (0.2-1.3); Total Protein 5.8 g/dL (6.3-8.2)
[2020-12-04] MEDS ORDERED: cefTRIAXone IN SWFI 1,000 MG/10 ML SYRINGE IVP STA (17:39)
--- NOTE | 2020-12-04 17:41 | XR ---
EXAMINATION TYPE: XR chest 2V DATE OF EXAM: 12/04/2020 COMPARISON: CT 11/22/2020. HISTORY: Shortness of breath. TECHNIQUE: Frontal and lateral views of the chest are obtained. FINDINGS: There is no focal air space opacity, pleural effusion, or pneumothorax seen. The patient i s slightly rotated with prominence of the hilum consistent with artifact. The cardiac silhouette size is within normal limits. The osseous structures are intact. IMPRESSION: No acute cardiopulmonary process.
[2020-12-04 18:13] LABS: Hyaline Casts,Urine 1 /lpf (0-2); Mucus,Urine Rare /hpf; RBC,Urine <1 /hpf (0-5)
[2020-12-04 18:14] LABS: Appearance,Urine Clear (Clear); Color,Urine Light Yellow
[2020-12-04 18:15] LABS: Bilirubin,Urine 1+ (Negative); Blood,Urine 2 (Negative); Glucose,Urine (UA) Negative (Negative); Ketones,Urine Negative (Negative); PH, Urine 5.5 (5.0-8.0); Protein,Urine 2+ (Negative)
[2020-12-04 18:16] LABS: Leukocyte Esterase,Urine Small (Negative); Nitrite,Urine Negative (Negative)
[2020-12-04] MEDS ORDERED: SODIUM CHLORIDE 0.9% 1,000 ML IV ONE (20:28)
[2020-12-04] MEDS: PIPERACILLIN-TAZOBACTAM 3.375 GM in SODIUM CHLORIDE 0.9% 100 ML IVPB SCH (22:21)
[2020-12-04] MEDS ORDERED: HYDROcodone/APAP 7.5-325MG 1 EACH TAB PO PRN (23:25)
[2020-12-04] MEDS ORDERED: NITROGLYCERIN SL TABS 0.4 MG TAB SUBLINGUAL PRN (23:28)
[2020-12-04] MEDS ORDERED: ACETAMINOPHEN TAB 325 MG TAB PO PRN (23:29)
[2020-12-04] MEDS: APIXABAN 5 MG TAB PO SCH (23:49)
[2020-12-05] MEDS ORDERED: SODIUM CHLORIDE 0.9% 1,000 ML IV SCH (06:15)
[2020-12-05] MEDS ORDERED: PANTOPRAZOLE 40 MG TABLET PO SCH (07:30)
[2020-12-05] MEDS: PIPERACILLIN-TAZOBACTAM 3.375 GM in SODIUM CHLORIDE 0.9% 100 ML IVPB SCH (08:19)
[2020-12-05 08:54] LABS: INR 1.5 (<1.2); Partial Thromboplastin Time 30.7 sec (22.0-30.0); Prothrombin Time 15.2 sec (9.0-12.0)
[2020-12-05] MEDS ORDERED: allopurinoL 300 MG TAB PO SCH (09:00)
[2020-12-05 09:22] LABS: Albumin 2.4 g/dL (3.5-5.0); Potassium 4.7 mmol/L (3.5-5.1); Total Protein 4.8 g/dL (6.3-8.2)
[2020-12-05 09:28] LABS: Calcium 5.6 mg/dL (8.4-10.2)
[2020-12-05 09:55] LABS: Anisocytosis Moderate; Basophils # (A) 0.1 k/uL (0-0.2); Basophils % (A) 0 %; Eosinophils % (A) 0 %; HCT 34.9 % (34.0-46.0); HGB 10.9 gm/dL (11.4-16.0); Hypochromasia Moderate; Lymphocytes # (A) 1.1 k/uL (1.0-4.8); Lymphocytes % (A) 6 %; MCH 32.8 pg (25.0-35.0); MCHC 31.2 g/dL (31.0-37.0); MCV 105.2 fL (80.0-100.0); Macrocytosis Marked; Mean Platelet Volume 10.2; Monocytes # (A) 1.1 k/uL (0-1.0); Monocytes % (A) 6 %; Neutrophils # (A) 16.6 k/uL (1.3-7.7); Neutrophils % (A) 87 %; Platelet Count 293 k/uL (150-450); Poikilocytosis Slight; RBC 3.32 m/uL (3.80-5.40); RDW 21.3 % (11.5-15.5)
[2020-12-05] MEDS ORDERED: IOPAMIDOL CONTRAST (ORAL USE) VIAL PO PRN (10:00)
[2020-12-05] MEDS ORDERED: CALCIUM CHLORIDE 100 MG/ML 10 ML SYRINGE IVP ONE (10:06)
[2020-12-05] MEDS: MIDODRINE 5 MG TAB PO SCH ×3 (10:41→18:44)
[2020-12-05] MEDS: SODIUM CHLORIDE 0.9% 250 ML IV SCH ×5 (10:45→17:49)
[2020-12-05 10:52] LABS: Polychromasia Present
--- NOTE | 2020-12-05 10:56 | P.HPIM ---
History of Present Illness H&P Date: 12/05/20 HISTORY OF PRESENT ILLNESS This is a 65-year-old female patient of Dr. Comer with past medical history of diabetes mellitus type 2, hypertension, hyperlipidemia, gas troesophageal reflux disease, recurrent depression breast cancer originally diagnosed in 2018 in remission but was recently found to have metastatic disease with bone and liver involvement and follows with Dr. Diaz . Patient was recently hospitalized and during that hospitalization she was treated for suspected pulmonary embolism and started on eliquis, acute kidney injury. She underwent a liver biopsy and paracentesis which came back positive for metastatic mammary adenocarcinoma. Patient was discharged home on November 26. She has had a follow-up appointment with oncology and was advised that she needed to start chemotherapy immediately. She was also seen by Dr. pedrozaotomy the office on Tuesday was having increasing weakness. Since Tuesday, patient has not been eating, drinking and not getting up. She is also had constipation and with medication changes, this has resolved. Family noticed that they're having a hard time waking her up and that her feet were turning blue and she was advised by oncology to come in the hospital. Patient was seen in the emergency center and was found to be afebrile, heart rate 116, blood pressure 98/64, pulse ox 90% on room air. EKG was sinus tachycardia at [address] changes. Chest x-ray showed no acute abnormality. Patient had episodes of diarrhea while in the emergency center and a stool was sent for C. difficile colitis which was negative. WBC 21.5, hemoglobin 12.9 and platelet count 299. Sodium 135, potassium 5.5, chloride 108, CO2 11, BUN 17 creatinine 3.78. Liver enzymes were elevated with total bilirubin 2.9, AST 634, ALT 249, alkaline phosphatase 820. Albumin 3.1. Lactic acid 2.4 urinalysis was negative for infection. Patient was admitted to the cardiac stepdown unit and consult in place with nephrology, cardiology and oncology. REVIEW OF SYSTEMS Constitutional: No fever, no chills, no night sweats. Reports weight change. Reports weakness, Reports fatigue Reports lethargy. Reports daytime sleepiness. EENT: No headache. No blurred vision or double vision, no loss of vision. No nasal drainage or congestion. No epistaxis. No sore throat. Lungs: Reports shortness of breath, cough, no sputum production. No wheezing. Reports shortness of breath with activity. Cardiovascular: No chest pain, no lower extremity edema. No palpitations. No paroxysmal nocturnal dyspnea. No orthopnea. No lightheadedness or dizziness. No syncopal episodes. Abdominal: Reports abdominal pain. No nausea, vomiting. Reports diarrhea. Reports constipation. No bloody or tarry stools. Reports loss of appetite. Genitourinary: No dysuria, increased frequency, urgency. No urinary retention. Musculoskeletal: No myalgias. Reports muscle weakness, reports gait dysfunction, no frequent falls. No back pain. No neck pain. Integumentary: No wounds, no lesions. No rash or pruritus. No unusual bruising. No change in hair or nails. Neurologic: No aphasia. No facial droop. No change in mentation. No head injury. No headache. No paralysis. No paresthesia. Psychiatric: No depression. No anxiety. No mood swings. Endocrine: No abnormal blood sugars. No weight change. SOCIAL HISTORY Patient was a smoker one pack per day for 40 years and quit in 2013. She denies any marijuana use, alcohol use or street drug use. She lives at home with her . She does not have any DME in place. FAMILY HISTORY Mother at age 88 from old age with history of hypertension, osteoarthritis, gout. Father at age 81 from cortical basal degeneration. Patient does not have any brothers. She has one sister that is from acquired hepatitis in the work place secondary to needle stick. Patient has one son with gout second child with no major medical problems. PHYSICAL EXAMINATION Gen: This is a 65-year-old female. She is resting in recliner, and daughter are at bedside. Patient is lethargic, occasional moaning. HEENT: Head is atraumatic, normocephalic. Pupils equal, round. Sclerae is anicteric. NECK: Supple. No JVD. No lymphadenopathy. No thyromegaly. LUNGS: Clear to auscultation. No wheezes or rhonchi. No intercostal retractions. HEART: Regular rate and rhythm. No murmur. ABDOMEN: Soft. Bowel sounds are present. No masses. Generalized abdominal tenderness. EXTREMITIES: No pedal edema. No calf tenderness. Plantar surface of bilateral feet dusky. NEUROLOGICAL: Patient is lethargic. ASSESSMENT AND PLAN 1. Sepsis with septic shock of unclear etiology, rule out diverticulitis. Continue Zosyn 3.375 g IV piggyback every 12 hours, CAT scan of the abdomen and pelvis with oral contrast only. Continue IV fluids, hold all blood pressure medications, midodrine 10 mg 3 times daily added. 2. Acute kidney injury secondary to poor oral intake. Consult with Dr. Storm lechuga. Avoid nephrotoxic agents and hypotension. Patient's been started on bicarb drip at 100 mL per hour and midodrine 10 mg 3 times daily, cortisol level ordered. If cortisol level is less than 10, patient will be started on hydrocortisone 100 mg IV every 8 hours. 3. Metabolic acidosis secondary to acute kidney injury. Patient started on bicarb drip. 4. Elevated troponins. Cardiology consult. No complaints of chest pain. 5. Recent diagnosis of possible pulmonary embolism. Continue eliquis. 6. Hypocalcemia. Replacement today and monitor. 7. Breast cancer with metastatic disease to the bone and liver. Consult with oncology. Consult Dr. Simon regarding port placement which was scheduled for Tuesday in order for her to start chemotherapy. 8. Elevated liver function tests secondary to Metastatic disease to the liver. Continue fentanyl patch for pain control. 9. Ascites and elevated liver function tests status post paracentesis on 11/24 for 2.1 L of serous fluid. Fluid positive for adenocarcinoma. 10. Chronic anemia of chronic illness. Monitor. 11. Hypertension. Hold all blood pressure medications. 12. Chronic gout. Continue allopurinol 300 mg daily. 13. Recent dental extraction, stable. 14. Hyperlipidemia. Hold statin. 15. Gastroesophageal reflux disease and GI prophylaxis. Continue Protonix 40 m g IV daily 16. Recurrent depression. Continue Effexor XR 75 mg daily. 17. DVT prophylaxis. Eliquis. Patient will be admitted to the hospital for a minimum of 2 night stay. DISCHARGE PLAN TBD. Impression and plan of care have been directed as dictated by the signing physician. Ally Bearden nurse practitioner acting as scribe for signing physician. Past Medical History Past Medical History: Cancer, Hyperlipidemia, Hypertension, Osteoarthritis (OA), Pulmonary Embolus (PE) Additional Past Medical History / Comment(s): left breast cancer with metastasis to spine,liver and abdominal cavaty, gout, arthritis in knee, suspected PE when IP last week, feet bluish on soles of aye feet-has call into Dr Diaz office at this time History of Any Multi-Drug Resistant Organisms: None Reported Past Surgical History: Breast Surgery, Cholecystectomy, Hysterectomy, Orthopedic Surgery Additional Past Surgical History / Comment(s): Left rotator cuff repair, knee arthroscopy(daughter unsure which), Right arm tendon release, Lasik eye surgery, Left breast lumpectomy 2016, paracentesis and biopsy of liver 11/25/2020 Past Anesthesia/Blood Transfusion Reactions: Postoperative Nausea & Vomiting (PONV) Past Psychological History: Anxiety, Depression Smoking Status: Former smoker Past Alcohol Use History: None Reported Additional Past Alcohol Use History / Comment(s): quit smoking 5-7 yrs ago, smoked for 40 yrs Past Drug Use History: None Reported - Past Family History Mother Family Medical History: No Reported History Medications and Allergies Home Medications Medication Instructions Recorded Confirmed Type Lansoprazole [Prevacid] 15 mg PO DAILY 11/03/16 12/04/20 History Venlafaxine HCl ER [Effexor XR] 75 mg PO DAILY 11/03/16 12/04/20 History allopurinoL [Zyloprim] 300 mg PO DAILY 11/03/16 12/04/20 History lisinopriL [Zestril] 40 mg PO DAILY 12/05/18 12/04/20 History fentaNYL 25MCG/HR PATCH [Duragesic 1 patch TRANSDERM Q72H 11/21/20 12/04/20 History 25MCG/HR] Apixaban [Eliquis Starter Pack 5 mg PO BID 12/04/20 12/04/20 History (for VTE)] Hydrocodone/Acetaminophen [[place] 1 tab PO Q6HR PRN 12/04/20 12/04/20 History 7.5-325] Sennosides [Senna] 8.6 mg PO HS 12/04/20 12/04/20 History polyethylene glycoL 3350 [Miralax] 17 gm PO BID 12/04/20 12/04/20 History Allergies Allergy/AdvReac Type Severity Reaction Status Date / Time No Known Allergies Allergy Verified 12/04/20 17:00 Physical Exam Vitals: Vital Signs Temp Pulse Pulse Resp BP BP Pulse Ox 12/05/20 08:00 97.7 F 110 H 16 72/56 100 12/05/20 04:00 97.7 F 110 H 16 86/58 95 12/05/20 00:40 108 H 16 12/04/20 23:06 97.9 F 108 H 16 110/77 99 12/04/20 22:22 108 H 20 96/69 95 12/04/20 20:54 97.9 F 107 H 20 95/62 98 12/04/20 19:35 109 H 20 105/67 100 12/04/20 18:23 112 H 20 98/68 100 12/04/20 17:30 113 H 20 94/62 100 12/04/20 17:00 111 H 20 84/69 99 12/04/20 15:56 97.4 F L 116 H 20 98/64 98 Intake and Output 12/04/20 12/05/20 12/05/20 22:59 06:59 14:59 Output Total 25 Balance -25 Output: Urine 25 Other: Weight 87.543 kg 87.543 kg Results CBC & Chem 7: 12/05/20 08:31 12/05/20 08:31 Labs: Abnormal Lab Results - Last 24 Hours (Table) 12/04/20 12/04/20 12/04/20 Range/Units 16:11 16:11 16:11 WBC 21.5 H (3.8-10.6) k/uL MCV 104.1 H (80.0-100.0) fL RDW 20.6 H (11.5-15.5) % Neutrophils # 18.0 H (1.3-7.7) k/uL Monocytes # 1.5 H (0-1.0) k/uL PT 14.1 H (9.0-12.0) sec INR 1.4 H (<1.2) APTT (22.0-30.0) sec Sodium 135 L (137-145) mmol/L Potassium 5.5 H (3.5-5.1) mmol/L Chloride 108 H (98-107) mmol/L Carbon Dioxide 11 L (22-30) mmol/L BUN 70 H (7-17) mg/dL Creatinine 3.78 H (0.52-1.04) mg/dL Plasma Lactic Acid Robi (0.7-2.0) mmol/L Calcium 6.5 L (8.4-10.2) mg/dL Total Bilirubin 2.9 H (0.2-1.3) mg/dL AST 634 H (14-36) U/L ALT 249 H (4-34) U/L Alkaline Phosphatase 820 H (38-126) U/L Troponin I (0.000-0.034) ng/mL Total Protein 5.8 L (6.3-8.2) g/dL Albumin 3.1 L (3.5-5.0) g/dL Urine Protein (Negative) Urine Bilirubin (Negative) Urine Mucus (None) /hpf 12/04/20 12/04/20 12/04/20 Range/Units 16:11 16:11 17:59 WBC (3.8-10.6) k/uL MCV (80.0-100.0) fL RDW (11.5-15.5) % Neutrophils # (1.3-7.7) k/uL Monocytes # (0-1.0) k/uL PT (9.0-12.0) sec INR (<1.2) APTT (22.0-30.0) sec Sodium (137-145) mmol/L Potassium (3.5-5.1) mmol/L Chloride (98-107) mmol/L Carbon Dioxide (22-30) mmol/L BUN (7-17) mg/dL Creatinine (0.52-1.04) mg/dL Plasma Lactic Acid Robi 2.4 H* (0.7-2.0) mmol/L Calcium (8.4-10.2) mg/dL Total Bilirubin (0.2-1.3) mg/dL AST (14-36) U/L ALT (4-34) U/L Alkaline Phosphatase (38-126) U/L Troponin I 0.269 H* (0.000-0.034) ng/mL Total Protein (6.3-8.2) g/dL Albumin (3.5-5.0) g/dL Urine Protein 2+ H (Negative) Urine Bilirubin 1+ H (Negative) Urine Mucus Rare H (None) /hpf 12/04/20 12/04/20 12/05/20 Range/Units 20:10 22:54 01:45 WBC (3.8-10.6) k/uL MCV (80.0-100.0) fL RDW (11.5-15.5) % Neutrophils # (1.3-7.7) k/uL Monocytes # (0-1.0) k/uL PT (9.0-12.0) sec INR (<1.2) APTT (22.0-30.0) sec Sodium (137-145) mmol/L Potassium (3.5-5.1) mmol/L Chloride (98-107) mmol/L Carbon Dioxide (22-30) mmol/L BUN (7-17) mg/dL Creatinine (0.52-1.04) mg/dL Plasma Lactic Acid Robi 2.3 H* (0.7-2.0) mmol/L Calcium (8.4-10.2) mg/dL Total Bilirubin (0.2-1.3) mg/dL AST (14-36) U/L ALT (4-34) U/L Alkaline Phosphatase (38-126) U/L Troponin I 0.414 H* 0.300 H* (0.000-0.034) ng/mL Total Protein (6.3-8.2) g/dL Albumin (3.5-5.0) g/dL Urine Protein (Negative) Urine Bilirubin (Negative) Urine Mucus (None) /hpf 12/05/20 12/05/20 Range/Units 08:31 08:31 WBC (3.8-10.6) k/uL MCV (80.0-100.0) fL RDW (11.5-15.5) % Neutrophils # (1.3-7.7) k/uL Monocytes # (0-1.0) k/uL PT 15.2 H (9.0-12.0) sec INR 1.5 H (<1.2) APTT 30.7 H (22.0-30.0) sec Sodium (137-145) mmol/L Potassium (3.5-5.1) mmol/L Chloride 112 H (98-107) mmol/L Carbon Dioxide 11 L (22-30) mmol/L BUN 72 H (7-17) mg/dL Creatinine 4.03 H (0.52-1.04) mg/dL Plasma Lactic Acid Robi (0.7-2.0) mmol/L Calcium 5.6 L* (8.4-10.2) mg/dL Total Bilirubin 2.0 H (0.2-1.3) mg/dL AST 509 H (14-36) U/L ALT 200 H (4-34) U/L Alkaline Phosphatase 652 H (38-126) U/L Troponin I (0.000-0.034) ng/mL Total Protein 4.8 L (6.3-8.2) g/dL Albumin 2.4 L (3.5-5.0) g/dL Urine Protein (Negative) Urine Bilirubin (Negative) Urine Mucus (None) /hpf Thrombosis Risk Factor Assmnt - Choose All That Apply Any of the Below Risk Factors Present?: Yes Each Factor Represents 1 point: Swollen legs (current) Other Risk Factors: Yes Each Risk Factor Represents 2 Points: Age 61-74 years Other congenital or acquired thrombophilia - If yes, enter type in comment: No Thrombosis Risk Factor Assessment Total Risk Factor Score: 3 Thrombosis Risk Factor Assessment Level: Moderate Risk
[2020-12-05] MEDS: APIXABAN 5 MG TAB PO SCH (11:17)
--- NOTE | 2020-12-05 11:28 | ECHOF ---
Referral Reason:Elevated troponin MEASUREMENTS -------- HEIGHT: 167.6 cm WEIGHT: 87.5 kg BP: RVIDd: 3.0 cm (< 3.3) IVSd: 1.2 cm (0.6 - 1.1) LVIDd: 3.5 cm (3.9 - 5.3) LVPWd: 1.5 cm (0.6 - 1.1) IVSs: 1.7 cm LVIDs: 1.0 cm LVPWs: 1.4 cm RAP: 5.00 mmHg RVSP: 24.64 mmHg FINDINGS -------- This was a technically difficult study with suboptimal views. Limited Study The left ventricular size is normal. There is moderate concentric left ventricular hypertrophy. O verall left ventricular systolic function is normal with, an EF between 60 - 65 %. Lumason used There is no pericardial effusion. CONCLUSIONS -------- 1. The left ventricular size is normal. 2. There is moderate concentric left ventricular hypertrophy. 3. Overall left ventricular systolic function is normal with, an EF between 60 - 65 %. 4. There is no pericardial effusion. TIRE REPAIRER: Inocencia Caraballo, [facility]
[2020-12-05] MEDS: DEXTROSE 5% IN WATER 1,000 ML with SODIUM BICARB (1 MEQ/ML) 150 ML IV SCH (11:52)
[2020-12-05 12:37] VITALS: BMI 31.1
[2020-12-05] MEDS: ALBUMIN HUMAN 25% 50 ML in EMPTY BAG 1 BAG IVPB SCH ×2 (13:06→14:01)
--- NOTE | 2020-12-05 13:21 | CONS ---
CONSULTATION REASON FOR CONSULT: Renal failure. HISTORY OF PRESENT ILLNESS: Patient is a 65-year-old female who was admitted to the hospital yesterday with complaints of increased weakness, not feeling well. She was also short of breath. Patient has not been eating or drinking much. Patient has a history of underlying metastatic breast cancer with recent finding of new mets to bone and liver. There are plans for starting chemotherapy as outpatient. However, patient's condition had worsened and therefore she was brought into the hospital. Family is present at bedside. Blood pressure has been running low with systolic at 72-86 mmHg systolic. Apparently patient has not had much urine output. She remains lethargic and confused. Patient was maintained on ОЛЬГА inhibitors at home prior to admission. The patient is maintained on IV fluids. PAST MEDICAL HISTORY: Metastatic breast cancer, hyperlipidemia, hypertension, osteoarthritis, history of PE. PAST SURGICAL HISTORY: Breast surgery, cholecystectomy, hysterectomy, left rotator cuff repair, knee arthroscopy, LASIK eye surgery, left breast lumpectomy, paracentesis, liver biopsy. MEDICATIONS: Medications at home prior to admission included Prevacid, Effexor, Zyloprim, Zestril, Duragesic patch, Eliquis, senna, MiraLAX. ALLERGIES: None. REVIEW OF SYSTEMS: As per HPI. Other systems negative. PHYSICAL EXAMINATION: The patient is currently comfortable. She is weak. She is lethargic, opens her eyes to verbal stimuli. Blood pressure is 86/58, heart rate 110 per minute. She is afebrile. Examination of the heart S1, S2. Examination of the lungs, bilateral breath sounds are heard. Abdomen is soft, nontender. Examination of lower extremities shows edema 1+ bilaterally. MRI TECHNOLOGIST exam shows patient moving all 4 extremities. LAB: Show sodium 137, potassium 4.7, chloride 112, CO2 is 11, BUN 72, creatinine 4.03, hemoglobin 10.9, white cell count 19.0. ASSESSMENT: 1. Acute kidney injury mostly acute tubular necrosis. Rule out hepatorenal syndrome. Blood pressure is significantly low. I will add midodrine. We will give her another bolus of normal saline and start bicarb drip. The case is discussed with family and I have advised them that if her renal function continues to deteriorate, patient is not an ideal candidate for renal replacement therapy given her underlying metastatic disease. 2. Severe metabolic acidosis, anion gap secondary to renal failure and lactic acidosis. We will start bicarb drip. 3. Metastatic breast cancer with mets to bone and liver. 4. Elevated liver enzymes secondary to hypotension as well as metastasis. 5. Recent acute kidney injury during last hospitalization about 2 weeks ago, which was mostly prerenal and had improved with IV fluids. 6. History of hypertension. Hold off on ОЛЬГА inhibitors now. Blood pressure is low. 7. Hypocalcemia. Rule out vitamin D deficiency. 8. Borderline elevated troponins. PLAN: Midodrine and start IV bicarb. Add oral midodrine. Start IV bicarb. Will give a 250 mL IV fluid bolus and insert Degroot catheter. I have discussed with family that if her renal function continues to deteriorate, the patient is not an ideal candidate for renal replacement therapy. Thank you for this consultation. We will continue to follow the patient with you during her hospitalization. MATT / LINA: [id number] /
--- NOTE | 2020-12-05 13:28 | P.CRDCN ---
History of Present Illness History of present illness: HISTORY OF PRESENTING ILLNESS This is a 65-year-old female with a past medical history of diabetes mellitus type 2, hypertension, hyperlipidemia, gastroesophageal reflux disease, depression, breast cancer originally diagnosed in 2017 status post partial mastectomy with lymph node dissection in late 2017 was recently found to have metastatic disease started on chemotherapy. She was found have bone and liver metastases recently. 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 We have been asked to see in consultation for elevated troponin. Patient seen and examined at bedside, patient very lethargic at bedside, alert to stimulus and verbal stimuli but falls back asleep quickly. Patient's family at bedside. Over the past 2 days family has noticed that the patient has declined. She has decreased PO intake, has not eaten in a few days, they noticed she is not urinating, and has become increasingly lethargic, difficult to wake up. She also appeared to be short of breath. They initially called the oncology office and described the patient's symptoms and was told to come to the emergency department. They state the patient has not endorsed any chest pain, lightheadedness, dizziness, syncope, palpitations. Patient does not have a history of cardiac disease. Family denies history of NE, Stroke, coronary artery disease. Family history includes patient's father had an NE in his 60s, recovered well. Recently admitted 11/21/20 with complaints of shortness of breath and dyspnea on exertion. Her troponins were elevated at that time at 0.04 x 3. Her D-dimer was elevated. She subsequently underwent VQ scan and was intermediate for PE and was started on a heparin drip. She also underwent CT chest which could not evaluate for PE. Her breathing has improved after 2 days on heparin drip, It was determined that her symptoms were most likely related to Pulmonary Embolism. She was discharged on Eliquis. Her LFTs were also elevated. Patient underwent liver biopsy and diagnostic/therapeutic paracentesis with removal of 2.1 L of serous fluid. Echocardiogram on 11/22/2020 revealed an EF 55-60%, mild trace regurgitation and trace mitral regurgitation. Limited echo today revealed EF of 60- 65%, no pericardial effusion. DIAGNOSTICS EKG reveals sinus tachycardia heart rate 115, T wave inversion in lead III, prior EKG this month similar results Telemetry tracings indicate sinus tachycardia HR low 100s. Chest xray patient is slightly rotated, no acute cardiopulmonary process.. Laboratory reviewed, troponin 0.2, 0.4, 0.3, previous troponins are elevated 0.04, WBC 19, hemoglobin 10.9, platelets 293, INR 1.5, sodium 137, potassium 4.7, BUN 72, serum creatinine 4.03, calcium 5.9, AST 509, PLT 200. REVIEW OF SYSTEMS At the time of my exam: Patient unable to give accurate review of systems at this time. PHYSICAL EXAMINATION Blood pressure 72/56 heart rate 110 afebrile and maintaining oxygen saturation 100% on room air CONSTITUTIONAL: No apparent distress. HEENT: Head is normocephalic. Pupils are equal, round. Sclerae anicteric. Mucous membranes of the mouth are moist. No JVD. No carotid bruit. CHEST EXAMINATION: Lungs are clear to auscultation. No chest wall tenderness is noted on palpation or with deep breathing. HEART EXAMINATION: Regular rate and rhythm. S1, S2 heard. No murmurs, gallops or rub. ABDOMEN: Distended, ascites, bowel sounds present EXTREMITIES: 2+ peripheral pulses,1+ bilateral edema lower extremities and no calf tenderness. NEUROLOGIC EXAMINATION: Patient is awake, alert,sslightly lethargic ASSESSMENT Elevated troponin, not indicative of acute coronary syndrome, most likely related to patient's acute kidney injury and liver function Acute Kidney Injury- Nephrology has been consulted. Metabolic acidosis Elevated Liver enzymes Recent Diagnosis of pulmonary embolism- on Eliquis Breast cancer with metastases to bone and liver- Oncology consulted Diabetes mellitus type 2 History of hypertension Hyperlipidemia Gastroesophageal reflux disease PLAN Limited echo obtained and reviewed. Elevated troponin, not indicative of acute coronary syndrome, most likely related to patient's acute kidney injury No further work up from a cardiology perspective We will sign off at this time Thank you kindly for this consultation. Nurse Practitioner note has been reviewed, I agree with a documented findings and plan of care. Patient was seen and examined. Past Medical History Past Medical History: Cancer, Hyperlipidemia, Hypertension, Osteoarthritis (OA), Pulmonary Embolus (PE) Additional Past Medical History / Comment(s): left breast cancer with metastasis to spine,liver and abdominal cavaty, gout, arthritis in knee, suspected PE when IP last week, feet bluish on soles of aye feet-has call into Dr Diaz office at this time History of Any Multi-Drug Resistant Organisms: None Reported Past Surgical History: Breast Surgery, Cholecystectomy, Hysterectomy, Orthopedic Surgery Additional Past Surgical History / Comment(s): Left rotator cuff repair, knee arthroscopy(daughter unsure which), Right arm tendon release, Lasik eye surgery, Left breast lumpectomy 2016, paracentesis and biopsy of liver 11/25/2020 Past Anesthesia/Blood Transfusion Reactions: Postoperative Nausea & Vomiting (PONV) Past Psychological History: Anxiety, Depression Smoking Status: Former smoker Past Alcohol Use History: None Reported Additional Past Alcohol Use History / Comment(s): quit smoking 5-7 yrs ago, smoked for 40 yrs Past Drug Use History: None Reported - Past Family History Mother Family Medical History: No Reported History Medications and Allergies Home Medications Medication Instructions Recorded Confirmed Type Lansoprazole [Prevacid] 15 mg PO DAILY 11/03/16 12/04/20 History Venlafaxine HCl ER [Effexor XR] 75 mg PO DAILY 11/03/16 12/04/20 History allopurinoL [Zyloprim] 300 mg PO DAILY 11/03/16 12/04/20 History lisinopriL [Zestril] 40 mg PO DAILY 12/05/18 12/04/20 History fentaNYL 25MCG/HR PATCH [Duragesic 1 patch TRANSDERM Q72H 11/21/20 12/04/20 History 25MCG/HR] Apixaban [Eliquis Starter Pack 5 mg PO BID 12/04/20 12/04/20 History (for VTE)] Hydrocodone/Acetaminophen [[place] 1 tab PO Q6HR PRN 12/04/20 12/04/20 History 7.5-325] Sennosides [Senna] 8.6 mg PO HS 12/04/20 12/04/20 History polyethylene glycoL 3350 [Miralax] 17 gm PO BID 12/04/20 12/04/20 History Allergies Allergy/AdvReac Type Severity Reaction Status Date / Time No Known Allergies Allergy Verified 12/04/20 17:00 Physical Exam Vitals: Vital Signs Temp Pulse Pulse Resp BP BP Pulse Ox 12/05/20 04:00 97.7 F 110 H 16 86/58 95 12/05/20 00:40 108 H 16 12/04/20 23:06 97.9 F 108 H 16 110/77 99 12/04/20 22:22 108 H 20 96/69 95 12/04/20 20:54 97.9 F 107 H 20 95/62 98 12/04/20 19:35 109 H 20 105/67 100 12/04/20 18:23 112 H 20 98/68 100 12/04/20 17:30 113 H 20 94/62 100 12/04/20 17:00 111 H 20 84/69 99 12/04/20 15:56 97.4 F L 116 H 20 98/64 98 Intake and Output 12/04/20 12/05/20 12/05/20 22:59 06:59 14:59 Output Total 25 Balance -25 Output: Urine 25 Other: Weight 87.543 kg 87.543 kg Results 12/05/20 08:31 12/05/20 08:31 Cardiac Enzymes 12/04/20 12/04/20 12/04/20 Range/Units 16:11 16:11 22:54 AST 634 H (14-36) U/L Troponin I 0.269 H* 0.414 H* (0.000-0.034) ng/mL 12/05/20 Range/Units 01:45 AST (14-36) U/L Troponin I 0.300 H* (0.000-0.034) ng/mL Coagulation 12/04/20 Range/Units 16:11 PT 14.1 H (9.0-12.0) sec APTT 26.4 (22.0-30.0) sec CBC 12/04/20 Range/Units 16:11 WBC 21.5 H (3.8-10.6) k/uL RBC 3.90 (3.80-5.40) m/uL Hgb 12.9 (11.4-16.0) gm/dL Hct 40.6 (34.0-46.0) % Plt Count 299 (150-450) k/uL Comprehensive Metabolic Panel 12/04/20 Range/Units 16:11 Sodium 135 L (137-145) mmol/L Potassium 5.5 H (3.5-5.1) mmol/L Chloride 108 H (98-107) mmol/L Carbon Dioxide 11 L (22-30) mmol/L BUN 70 H (7-17) mg/dL Creatinine 3.78 H (0.52-1.04) mg/dL Glucose 98 (74-99) mg/dL Calcium 6.5 L (8.4-10.2) mg/dL AST 634 H (14-36) U/L ALT 249 H (4-34) U/L Alkaline Phosphatase 820 H (38-126) U/L Total Protein 5.8 L (6.3-8.2) g/dL Albumin 3.1 L (3.5-5.0) g/dL Current Medications Generic Name Dose Route Start Last Admin Trade Name Freq PRN Reason Stop Dose Admin Acetaminophen 650 mg 12/04/20 23:29 Acetaminophen Tab 325 Mg Tab PO Q6HR PRN Fever and/ or Pain Hydrocodone Bitart/Acetaminophen 1 each 12/04/20 23:25 Hydrocodone/Apap 7.5-325mg 1 Each Tab PO Q6HR PRN Pain Allopurinol 300 mg 12/05/20 09:00 Allopurinol 300 Mg Tab PO DAILY LIO Apixaban 5 mg 12/04/20 23:30 12/04/20 23:49 Apixaban 5 Mg Tab PO 5 mg BID LIO Administration Fentanyl 1 patch 12/05/20 09:00 Fentanyl 25mcg/Hr Patch TRANSDERM Q72H LIO Protocol Piperacillin Sod/Tazobactam 100 mls @ 25 mls/hr 12/04/20 21:00 12/04/20 22:21 Sod 3.375 gm/ Sodium Chloride IVPB 25 mls/hr Q12HR LIO Administration Sodium Chloride 1,000 mls @ 75 mls/hr 12/05/20 06:15 12/05/20 06:14 Saline 0.9% IV 75 mls/hr .[id number] LIO Administration Nitroglycerin 0.4 mg 12/04/20 23:28 Nitroglycerin Sl Tabs 0.4 Mg Tab SUBLINGUAL Q5M PRN Chest Pain Pantoprazole Sodium 40 mg 12/05/20 07:30 12/05/20 06:15 Pantoprazole 40 Mg Tablet PO 40 mg [id number] LIO Administration Venlafaxine HCl 75 mg 12/05/20 09:00 Venlafaxine Hcl Er 75 Mg Cap PO DAILY LIO Intake and Output 12/04/20 12/05/20 12/05/20 22:59 06:59 14:59 Output Total 25 Balance -25 Output: Urine 25 Other: Weight 87.543 kg 87.543 kg 12/04/20 16:11 12/04/20 16:11
--- NOTE | 2020-12-05 14:03 | P.GSCN ---
<Missy Patel - Last Filed: 12/05/20 13:44> History of Present Illness Consult date: 12/05/20 History of present illness: CHIEF COMPLAINT: Weakness HISTORY OF PRESENT ILLNESS: This is a 65-year-old female with past medical history of breast cancer with metastatic disease to the bone and liver. Patient was initially scheduled for port placement on Tuesday with Dr. Simon in order for her to start chemotherapy. However over the last couple days patient has had progressive weakness and has been more lethargic. She had evidence of acute kidney injury and abnormal labs. She has been encouraged to come to the ER for evaluation. Patient has had poor oral intake since Tuesday. She also had issues with constipation and had been given MiraLAX and has now been having diarrhea. Her abdomen is distended. And medical service has ordered a computed tomography scan abdomen and pelvis. Patient had required a paracentesis on November 24 and fluid was found to be positive for adenocarcinoma. Patient also had a recent hospitalization with discharge on 11/26/2020 at that time diagnosed with a possible PE and has been on Eliquis. Her last dose of Eliquis was taken on 12/05/2019 in the evening. Patient has been hypotensive, tachycardic and has elevated WBC. She has minimal urine output. Surgical consult was placed for Port-A-Cath placement. PAST MEDICAL HISTORY: See list. PAST SURGICAL HISTORY: See list. MEDICATIONS: See list. ALLERGIES: See list. SOCIAL HISTORY: No illicit drug use. REVIEW OF SYSTEMS: CONSTITUTIONAL: Denies fever or chills. HEENT: Denies blurred vision, vision changes, or eye pain. Denies hemoptysis CARDIOVASCULAR: Denies chest pain or pressure. RESPIRATORY: No shortness of breath. GASTROINTESTINAL: See HPI for pertinent findings HEMATOLOGIC: Denies bleeding disorders. GENITOURINARY: Denies any blood in urine or increased urinary frequency. SKIN: Denies pruitis. Denies rash. PHYSICAL EXAM: VITAL SIGNS: Reviewed GENERAL: Well-developed in no acute distress. HEENT: No sclera icterus. Extraocular movements grossly intact. Moist buccal mucosa. Head is atraumatic, normocephalic. No nasal drainage. ABDOMEN: Soft. Distended. Diffuse abdominal tenderness NEUROLOGIC: Lethargic Skin. Jaundice LABORATORY DATA: WBC 21.5 down to 19.0 hemoglobin 10.9 platelets 293 INR 1.5 sodium 137 potassium 4.7 creatinine of 4.3 Calcium 5.6 total bilirubin 2.0 AST 509 ALT 200 alk phos 652 Elevated troponins C. diff negative UA negative for infection IMAGING: Chest x-ray negative Computed tomography scan abdomen and pelvis pending ASSESSMENT: 1. Breast cancer with metastatic disease to the bone and liver PLAN: -Further recommendations forthcoming per surgeon -Continue supportive care Thank you for this consultation Physician Regional Recruiter note has been reviewed by physician. Signing provider agrees with the documented findings, assessment, and plan of care. Past Medical History Past Medical History: Cancer, Hyperlipidemia, Hypertension, Osteoarthritis (OA), Pulmonary Embolus (PE) Additional Past Medical History / Comment(s): left breast cancer with metastasis to spine,liver and abdominal cavaty, gout, arthritis in knee, suspected PE when IP last week, feet bluish on soles of aye feet-has call into Dr Diaz office at this time History of Any Multi-Drug Resistant Organisms: None Reported Past Surgical History: Breast Surgery, Cholecystectomy, Hysterectomy, Orthopedic Surgery Additional Past Surgical History / Comment(s): Left rotator cuff repair, knee arthroscopy(daughter unsure which), Right arm tendon release, Lasik eye surgery, Left breast lumpectomy 2016, paracentesis and biopsy of liver 11/25/2020 Past Anesthesia/Blood Transfusion Reactions: Postoperative Nausea & Vomiting (PONV) Past Psychological History: Anxiety, Depression Smoking Status: Former smoker Past Alcohol Use History: None Reported Additional Past Alcohol Use History / Comment(s): quit smoking 5-7 yrs ago, smoked for 40 yrs Past Drug Use History: None Reported - Past Family History Mother Family Medical History: No Reported History Medications and Allergies Home Medications Medication Instructions Recorded Confirmed Type Lansoprazole [Prevacid] 15 mg PO DAILY 11/03/16 12/04/20 History Venlafaxine HCl ER [Effexor XR] 75 mg PO DAILY 11/03/16 12/04/20 History allopurinoL [Zyloprim] 300 mg PO DAILY 11/03/16 12/04/20 History lisinopriL [Zestril] 40 mg PO DAILY 12/05/18 12/04/20 History fentaNYL 25MCG/HR PATCH [Duragesic 1 patch TRANSDERM Q72H 11/21/20 12/04/20 History 25MCG/HR] Apixaban [Eliquis Starter Pack 5 mg PO BID 12/04/20 12/04/20 History (for VTE)] Hydrocodone/Acetaminophen [Caldwell 1 tab PO Q6HR PRN 12/04/20 12/04/20 History 7.5-325] Sennosides [Senna] 8.6 mg PO HS 12/04/20 12/04/20 History polyethylene glycoL 3350 [Miralax] 17 gm PO BID 12/04/20 12/04/20 History Allergies Allergy/AdvReac Type Severity Reaction Status Date / Time No Known Allergies Allergy Verified 12/04/20 17:00 Surgical - Exam Vital Signs Temp Pulse Resp BP Pulse Ox 97.4 F L 116 H 20 98/64 98 12/04/20 15:56 12/04/20 15:56 12/04/20 15:56 12/04/20 15:56 12/04/20 15:56 Results - Labs 12/05/20 08:31 12/05/20 08:31 Abnormal Lab Results - Last 24 Hours (Table) 12/04/20 12/04/20 12/04/20 Range/Units 16:11 16:11 16:11 WBC 21.5 H (3.8-10.6) k/uL RBC (3.80-5.40) m/uL Hgb (11.4-16.0) gm/dL MCV 104.1 H (80.0-100.0) fL RDW 20.6 H (11.5-15.5) % Neutrophils # 18.0 H (1.3-7.7) k/uL Monocytes # 1.5 H (0-1.0) k/uL Macrocytosis PT 14.1 H (9.0-12.0) sec INR 1.4 H (<1.2) APTT (22.0-30.0) sec Sodium 135 L (137-145) mmol/L Potassium 5.5 H (3.5-5.1) mmol/L Chloride 108 H (98-107) mmol/L Carbon Dioxide 11 L (22-30) mmol/L BUN 70 H (7-17) mg/dL Creatinine 3.78 H (0.52-1.04) mg/dL Plasma Lactic Acid Robi (0.7-2.0) mmol/L Calcium 6.5 L (8.4-10.2) mg/dL Total Bilirubin 2.9 H (0.2-1.3) mg/dL AST 634 H (14-36) U/L ALT 249 H (4-34) U/L Alkaline Phosphatase 820 H (38-126) U/L Troponin I (0.000-0.034) ng/mL Total Protein 5.8 L (6.3-8.2) g/dL Albumin 3.1 L (3.5-5.0) g/dL Urine Protein (Negative) Urine Bilirubin (Negative) Urine Mucus (None) /hpf 12/04/20 12/04/20 12/04/20 Range/Units 16:11 16:11 17:59 WBC (3.8-10.6) k/uL RBC (3.80-5.40) m/uL Hgb (11.4-16.0) gm/dL MCV (80.0-100.0) fL RDW (11.5-15.5) % Neutrophils # (1.3-7.7) k/uL Monocytes # (0-1.0) k/uL Macrocytosis PT (9.0-12.0) sec INR (<1.2) APTT (22.0-30.0) sec Sodium (137-145) mmol/L Potassium (3.5-5.1) mmol/L Chloride (98-107) mmol/L Carbon Dioxide (22-30) mmol/L BUN (7-17) mg/dL Creatinine (0.52-1.04) mg/dL Plasma Lactic Acid Robi 2.4 H* (0.7-2.0) mmol/L Calcium (8.4-10.2) mg/dL Total Bilirubin (0.2-1.3) mg/dL AST (14-36) U/L ALT (4-34) U/L Alkaline Phosphatase (38-126) U/L Troponin I 0.269 H* (0.000-0.034) ng/mL Total Protein (6.3-8.2) g/dL Albumin (3.5-5.0) g/dL Urine Protein 2+ H (Negative) Urine Bilirubin 1+ H (Negative) Urine Mucus Rare H (None) /hpf 12/04/20 12/04/20 12/05/20 Range/Units 20:10 22:54 01:45 WBC (3.8-10.6) k/uL RBC (3.80-5.40) m/uL Hgb (11.4-16.0) gm/dL MCV (80.0-100.0) fL RDW (11.5-15.5) % Neutrophils # (1.3-7.7) k/uL Monocytes # (0-1.0) k/uL Macrocytosis PT (9.0-12.0) sec INR (<1.2) APTT (22.0-30.0) sec Sodium (137-145) mmol/L Potassium (3.5-5.1) mmol/L Chloride (98-107) mmol/L Carbon Dioxide (22-30) mmol/L BUN (7-17) mg/dL Creatinine (0.52-1.04) mg/dL Plasma Lactic Acid Robi 2.3 H* (0.7-2.0) mmol/L Calcium (8.4-10.2) mg/dL Total Bilirubin (0.2-1.3) mg/dL AST (14-36) U/L ALT (4-34) U/L Alkaline Phosphatase (38-126) U/L Troponin I 0.414 H* 0.300 H* (0.000-0.034) ng/mL Total Protein (6.3-8.2) g/dL Albumin (3.5-5.0) g/dL Urine Protein (Negative) Urine Bilirubin (Negative) Urine Mucus (None) /hpf 12/05/20 12/05/20 12/05/20 Range/Units 08:31 08:31 08:31 WBC 19.0 H (3.8-10.6) k/uL RBC 3.32 L (3.80-5.40) m/uL Hgb 10.9 L (11.4-16.0) gm/dL MCV 105.2 H (80.0-100.0) fL RDW 21.3 H (11.5-15.5) % Neutrophils # 16.6 H (1.3-7.7) k/uL Monocytes # 1.1 H (0-1.0) k/uL Macrocytosis Marked A PT 15.2 H (9.0-12.0) sec INR 1.5 H (<1.2) APTT 30.7 H (22.0-30.0) sec Sodium (137-145) mmol/L Potassium (3.5-5.1) mmol/L Chloride 112 H (98-107) mmol/L Carbon Dioxide 11 L (22-30) mmol/L BUN 72 H (7-17) mg/dL Creatinine 4.03 H (0.52-1.04) mg/dL Plasma Lactic Acid Robi (0.7-2.0) mmol/L Calcium 5.6 L* (8.4-10.2) mg/dL Total Bilirubin 2.0 H (0.2-1.3) mg/dL AST 509 H (14-36) U/L ALT 200 H (4-34) U/L Alkaline Phosphatase 652 H (38-126) U/L Troponin I (0.000-0.034) ng/mL Total Protein 4.8 L (6.3-8.2) g/dL Albumin 2.4 L (3.5-5.0) g/dL Urine Protein (Negative) Urine Bilirubin (Negative) Urine Mucus (None) /hpf Diabetes panel 12/04/20 12/05/20 Range/Units 16:11 08:31 Sodium 135 L 137 (137-145) mmol/L Potassium 5.5 H 4.7 (3.5-5.1) mmol/L Chloride 108 H 112 H (98-107) mmol/L Carbon Dioxide 11 L 11 L (22-30) mmol/L BUN 70 H 72 H (7-17) mg/dL Creatinine 3.78 H 4.03 H (0.52-1.04) mg/dL Glucose 98 82 (74-99) mg/dL Calcium 6.5 L 5.6 L* (8.4-10.2) mg/dL AST 634 H 509 H (14-36) U/L ALT 249 H 200 H (4-34) U/L Alkaline Phosphatase 820 H 652 H (38-126) U/L Total Protein 5.8 L 4.8 L (6.3-8.2) g/dL Albumin 3.1 L 2.4 L (3.5-5.0) g/dL Calcium panel 07/29/21 07/30/21 Range/Units 16:11 08:31 Calcium 6.5 L 5.6 L* (8.4-10.2) mg/dL Albumin 3.1 L 2.4 L (3.5-5.0) g/dL Pituitary panel 12/04/20 12/05/20 Range/Units 16:11 08:31 Sodium 135 L 137 (137-145) mmol/L Potassium 5.5 H 4.7 (3.5-5.1) mmol/L Chloride 108 H 112 H (98-107) mmol/L Carbon Dioxide 11 L 11 L (22-30) mmol/L BUN 70 H 72 H (7-17) mg/dL Creatinine 3.78 H 4.03 H (0.52-1.04) mg/dL Glucose 98 82 (74-99) mg/dL Calcium 6.5 L 5.6 L* (8.4-10.2) mg/dL Adrenal panel 12/04/20 12/05/20 Range/Units 16:11 08:31 Sodium 135 L 137 (137-145) mmol/L Potassium 5.5 H 4.7 (3.5-5.1) mmol/L Chloride 108 H 112 H (98-107) mmol/L Carbon Dioxide 11 L 11 L (22-30) mmol/L BUN 70 H 72 H (7-17) mg/dL Creatinine 3.78 H 4.03 H (0.52-1.04) mg/dL Glucose 98 82 (74-99) mg/dL Calcium 6.5 L 5.6 L* (8.4-10.2) mg/dL Total Bilirubin 2.9 H 2.0 H (0.2-1.3) mg/dL AST 634 H 509 H (14-36) U/L ALT 249 H 200 H (4-34) U/L Alkaline Phosphatase 820 H 652 H (38-126) U/L Total Protein 5.8 L 4.8 L (6.3-8.2) g/dL Albumin 3.1 L 2.4 L (3.5-5.0) g/dL <Carson Simon - Last Filed: 12/05/20 16:10> History of Present Illness History of present illness: As above. Patient was scheduled for Port-A-Cath placement on Tuesday. Admitted with weakness and confusion. Patient not currently a surgical candidate. Apparently has midline catheter ordered. Will remain on standby for possible Port-A-Cath placement. Surgical - Exam Vital Signs Temp Pulse Resp BP Pulse Ox 97.4 F L 116 H 20 98/64 98 12/04/20 15:56 12/04/20 15:56 12/04/20 15:56 12/04/20 15:56 12/04/20 15:56 Results - Labs 12/05/20 08:31 12/05/20 08:31 Abnormal Lab Results - Last 24 Hours (Table) 12/04/20 12/04/20 12/04/20 Range/Units 16:11 16:11 16:11 WBC 21.5 H (3.8-10.6) k/uL RBC (3.80-5.40) m/uL Hgb (11.4-16.0) gm/dL MCV 104.1 H (80.0-100.0) fL RDW 20.6 H (11.5-15.5) % Neutrophils # 18.0 H (1.3-7.7) k/uL Monocytes # 1.5 H (0-1.0) k/uL Macrocytosis PT 14.1 H (9.0-12.0) sec INR 1.4 H (<1.2) APTT (22.0-30.0) sec Sodium 135 L (137-145) mmol/L Potassium 5.5 H (3.5-5.1) mmol/L Chloride 108 H (98-107) mmol/L Carbon Dioxide 11 L (22-30) mmol/L BUN 70 H (7-17) mg/dL Creatinine 3.78 H (0.52-1.04) mg/dL Plasma Lactic Acid Robi (0.7-2.0) mmol/L Calcium 6.5 L (8.4-10.2) mg/dL Total Bilirubin 2.9 H (0.2-1.3) mg/dL AST 634 H (14-36) U/L ALT 249 H (4-34) U/L Alkaline Phosphatase 820 H (38-126) U/L Troponin I (0.000-0.034) ng/mL Total Protein 5.8 L (6.3-8.2) g/dL Albumin 3.1 L (3.5-5.0) g/dL Urine Protein (Negative) Urine Bilirubin (Negative) Urine Mucus (None) /hpf 12/04/20 12/04/20 12/04/20 Range/Units 16:11 16:11 17:59 WBC (3.8-10.6) k/uL RBC (3.80-5.40) m/uL Hgb (11.4-16.0) gm/dL MCV (80.0-100.0) fL RDW (11.5-15.5) % Neutrophils # (1.3-7.7) k/uL Monocytes # (0-1.0) k/uL Macrocytosis PT (9.0-12.0) sec INR (<1.2) APTT (22.0-30.0) sec Sodium (137-145) mmol/L Potassium (3.5-5.1) mmol/L Chloride (98-107) mmol/L Carbon Dioxide (22-30) mmol/L BUN (7-17) mg/dL Creatinine (0.52-1.04) mg/dL Plasma Lactic Acid Robi 2.4 H* (0.7-2.0) mmol/L Calcium (8.4-10.2) mg/dL Total Bilirubin (0.2-1.3) mg/dL AST (14-36) U/L ALT (4-34) U/L Alkaline Phosphatase (38-126) U/L Troponin I 0.269 H* (0.000-0.034) ng/mL Total Protein (6.3-8.2) g/dL Albumin (3.5-5.0) g/dL Urine Protein 2+ H (Negative) Urine Bilirubin 1+ H (Negative) Urine Mucus Rare H (None) /hpf 12/04/20 12/04/20 12/05/20 Range/Units 20:10 22:54 01:45 WBC (3.8-10.6) k/uL RBC (3.80-5.40) m/uL Hgb (11.4-16.0) gm/dL MCV (80.0-100.0) fL RDW (11.5-15.5) % Neutrophils # (1.3-7.7) k/uL Monocytes # (0-1.0) k/uL Macrocytosis PT (9.0-12.0) sec INR (<1.2) APTT (22.0-30.0) sec Sodium (137-145) mmol/L Potassium (3.5-5.1) mmol/L Chloride (98-107) mmol/L Carbon Dioxide (22-30) mmol/L BUN (7-17) mg/dL Creatinine (0.52-1.04) mg/dL Plasma Lactic Acid Robi 2.3 H* (0.7-2.0) mmol/L Calcium (8.4-10.2) mg/dL Total Bilirubin (0.2-1.3) mg/dL AST (14-36) U/L ALT (4-34) U/L Alkaline Phosphatase (38-126) U/L Troponin I 0.414 H* 0.300 H* (0.000-0.034) ng/mL Total Protein (6.3-8.2) g/dL Albumin (3.5-5.0) g/dL Urine Protein (Negative) Urine Bilirubin (Negative) Urine Mucus (None) /hpf 12/05/20 12/05/20 12/05/20 Range/Units 08:31 08:31 08:31 WBC 19.0 H (3.8-10.6) k/uL RBC 3.32 L (3.80-5.40) m/uL Hgb 10.9 L (11.4-16.0) gm/dL MCV 105.2 H (80.0-100.0) fL RDW 21.3 H (11.5-15.5) % Neutrophils # 16.6 H (1.3-7.7) k/uL Monocytes # 1.1 H (0-1.0) k/uL Macrocytosis Marked A PT 15.2 H (9.0-12.0) sec INR 1.5 H (<1.2) APTT 30.7 H (22.0-30.0) sec Sodium (137-145) mmol/L Potassium (3.5-5.1) mmol/L Chloride 112 H (98-107) mmol/L Carbon Dioxide 11 L (22-30) mmol/L BUN 72 H (7-17) mg/dL Creatinine 4.03 H (0.52-1.04) mg/dL Plasma Lactic Acid Robi (0.7-2.0) mmol/L Calcium 5.6 L* (8.4-10.2) mg/dL Total Bilirubin 2.0 H (0.2-1.3) mg/dL AST 509 H (14-36) U/L ALT 200 H (4-34) U/L Alkaline Phosphatase 652 H (38-126) U/L Troponin I (0.000-0.034) ng/mL Total Protein 4.8 L (6.3-8.2) g/dL Albumin 2.4 L (3.5-5.0) g/dL Urine Protein (Negative) Urine Bilirubin (Negative) Urine Mucus (None) /hpf Diabetes panel 12/04/20 12/05/20 Range/Units 16:11 08:31 Sodium 135 L 137 (137-145) mmol/L Potassium 5.5 H 4.7 (3.5-5.1) mmol/L Chloride 108 H 112 H (98-107) mmol/L Carbon Dioxide 11 L 11 L (22-30) mmol/L BUN 70 H 72 H (7-17) mg/dL Creatinine 3.78 H 4.03 H (0.52-1.04) mg/dL Glucose 98 82 (74-99) mg/dL Calcium 6.5 L 5.6 L* (8.4-10.2) mg/dL AST 634 H 509 H (14-36) U/L ALT 249 H 200 H (4-34) U/L Alkaline Phosphatase 820 H 652 H (38-126) U/L Total Protein 5.8 L 4.8 L (6.3-8.2) g/dL Albumin 3.1 L 2.4 L (3.5-5.0) g/dL Calcium panel 12/04/20 12/05/20 Range/Units 16:11 08:31 Calcium 6.5 L 5.6 L* (8.4-10.2) mg/dL Albumin 3.1 L 2.4 L (3.5-5.0) g/dL Pituitary panel 12/04/20 12/05/20 Range/Units 16:11 08:31 Sodium 135 L 137 (137-145) mmol/L Potassium 5.5 H 4.7 (3.5-5.1) mmol/L Chloride 108 H 112 H (98-107) mmol/L Carbon Dioxide 11 L 11 L (22-30) mmol/L BUN 70 H 72 H (7-17) mg/dL Creatinine 3.78 H 4.03 H (0.52-1.04) mg/dL Glucose 98 82 (74-99) mg/dL Calcium 6.5 L 5.6 L* (8.4-10.2) mg/dL Adrenal panel 12/04/20 12/05/20 Range/Units 16:11 08:31 Sodium 135 L 137 (137-145) mmol/L Potassium 5.5 H 4.7 (3.5-5.1) mmol/L Chloride 108 H 112 H (98-107) mmol/L Carbon Dioxide 11 L 11 L (22-30) mmol/L BUN 70 H 72 H (7-17) mg/dL Creatinine 3.78 H 4.03 H (0.52-1.04) mg/dL Glucose 98 82 (74-99) mg/dL Calcium 6.5 L 5.6 L* (8.4-10.2) mg/dL Total Bilirubin 2.9 H 2.0 H (0.2-1.3) mg/dL AST 634 H 509 H (14-36) U/L ALT 249 H 200 H (4-34) U/L Alkaline Phosphatase 820 H 652 H (38-126) U/L Total Protein 5.8 L 4.8 L (6.3-8.2) g/dL Albumin 3.1 L 2.4 L (3.5-5.0) g/dL
--- NOTE | 2020-12-05 15:04 | CT ---
EXAMINATION TYPE: CT abdomen pelvis wo con DATE OF EXAM: 12/05/2020 COMPARISON: 11/21/2020 HISTORY: 65-year-old female Diffuse abdominal pain, obstruction. Left breast cancer with mets CT DLP: 1036.4 mGycm. Automated exposure control for dose reduction was used. TECHNIQUE: Contiguous axial scanning of the abdomen and pelvis without IV contrast. Coronal and sagit david reconstructions performed. FINDINGS: Heart normal size without pericardial effusion. Partially visualized suspected left lumpectomy site a nd seroma measuring 3.2 cm versus 3.3 cm, previously. The previous trace left effusion has resolved. Liver measures 20.3 cm with diffuse nodular low density heterogeneity. Cholecystectomy clips are A 4.7 cm low-density mass of the left adrenal gland, possible lipid rich left adrenal adenoma. Unchan ged from prior. A 1.7 cm medial lower pole right renal cortical hypodensity is unchanged, likely cyst. Noncontrast appearance right adrenal gland, spleen, and pancreas shows no gross abnormality. No dilated small bowel or free air. There is moderate abdominopelvic ascites and diffuse anasarca kevin nge which is progressed from prior. There is proximal sigmoid diverticulosis. No significant stool burden. Moderate pelvic ascites. Bladder is largely collapsed. Uterus surgically absent. Neither ovary clearl y visualized. No pelvic lymphadenopathy. Bones: Diffuse sclerotic foci throughout the visualized skeletal structures osseous metastatic diseas e, unchanged from prior. IMPRESSION: 1. Continued heavy metastatic disease burden within the liver. Correlate with LFTs to exclude hepatic insufficiency. Known diffuse osseous metastatic disease. 2. Slight increase in moderate abdominopelvic ascites and progression in the generalized anasarca kevin nge. 3. 3.2 cm suspected left breast seroma at the surgical site suspected. Clinically correlate. 4. Sigmoid diverticulosis. 5. Low-density left adrenal mass measuring 4.7 cm, likely lipid rich adrenal adenoma.
[2020-12-05] MEDS: VENLAFAXINE HCL ER 75 MG CAP PO SCH (17:14)
[2020-12-05] MEDS: SENNOSIDES-DOCUSATE SODIUM 1 EACH TAB PO SCH (17:49)
[2020-12-05] MEDS ORDERED: FUROSEMIDE 10 MG/ML 10 ML VIAL IV STA (17:57)
[2020-12-05] MEDS ORDERED: ONDANSETRON 4 MG/2 ML VIAL IVP PRN (18:30)
[2020-12-05] MEDS ORDERED: DEXAMETHASONE SOD PHOSPHATE 20 MG in DEXTROSE 5% IN WATER 50 ML IV ONE ×2 (18:30)
[2020-12-05] MEDS ORDERED: FAMOTIDINE 20 MG/2 ML VIAL IVP ONE (18:30)
[2020-12-05] MEDS ORDERED: diphenhydrAMINE 50 MG/ML 1 ML VIAL IVP ONE (18:30)
[2020-12-05] MEDS ORDERED: SODIUM CHLORIDE 0.9% IV ONE (19:00)
[2020-12-05] MEDS ORDERED: PACLITAXEL IV ONE (19:00)
[2020-12-05] MEDS ORDERED: HYDROmorphone 0.5 MG/0.5 ML SYRINGE IM PRN (20:42)
--- NOTE | 2020-12-05 20:50 | P.CONS ---
History of Present Illness - Reason for Consult Consult date: 12/05/20 Progressive metastatic breast cancer Requesting physician: Ortiz Glasgow - Chief Complaint Mental Status Changes - History of Present Illness Patient is well known to our practice, treatment under Primary oncologist Dr. Diaz for her metastatic Breast Cancer. She recently was admitted and underwent Paracentesis and liver biopsy at recent admission last week. She was admitted with increased Shortness of breath and at that time difficult to determine exact etiology she was started on heparin drip for clinical determination of Pulmonary embolism. After Anticoagulation started she was improved, however still not able to completely determine if pulm embolism was pr esent due to Renal function. Daughter notified office yesterday stating her mother was more lethargic, skin color changes, and she was concerned. Advised to bring into hospital for further work-eup. She appears to have increased hepatic encephalopathy on admission increased liver function. Full murillo cultures pending. Review of Systems ROS unobtainable: due to mental status Past Medical History Past Medical History: Cancer, Hyperlipidemia, Hypertension, Osteoarthritis (OA), Pulmonary Embolus (PE) Additional Past Medical History / Comment(s): left breast cancer with metastasis to spine,liver and abdominal cavaty, gout, arthritis in knee, suspected PE when IP last week, feet bluish on soles of aye feet-has call into Dr Diaz office at this time History of Any Multi-Drug Resistant Organisms: None Reported Past Surgical History: Breast Surgery, Cholecystectomy, Hysterectomy, Orthopedic Surgery Additional Past Surgical History / Comment(s): Left rotator cuff repair, knee arthroscopy(daughter unsure which), Right arm tendon release, Lasik eye surgery, Left breast lumpectomy 2016, paracentesis and biopsy of liver 11/25/2020 Past Anesthesia/Blood Transfusion Reactions: Postoperative Nausea & Vomiting (PONV) Past Psychological History: Anxiety, Depression Smoking Status: Former smoker Past Alcohol Use History: None Reported Additional Past Alcohol Use History / Comment(s): quit smoking 5-7 yrs ago, smoked for 40 yrs Past Drug Use History: None Reported - Past Family History Mother Family Medical History: No Reported History Medications and Allergies Home Medications Medication Instructions Recorded Confirmed Type Lansoprazole [Prevacid] 15 mg PO DAILY 11/03/16 12/04/20 History Venlafaxine HCl ER [Effexor XR] 75 mg PO DAILY 11/03/16 12/04/20 History allopurinoL [Zyloprim] 300 mg PO DAILY 11/03/16 12/04/20 History lisinopriL [Zestril] 40 mg PO DAILY 12/05/18 12/04/20 History fentaNYL 25MCG/HR PATCH [Duragesic 1 patch TRANSDERM Q72H 11/21/20 12/04/20 History 25MCG/HR] Apixaban [Eliquis Starter Pack 5 mg PO BID 12/04/20 12/04/20 History (for VTE)] Hydrocodone/Acetaminophen [[place] 1 tab PO Q6HR PRN 12/04/20 12/04/20 History 7.5-325] Sennosides [Senna] 8.6 mg PO HS 12/04/20 12/04/20 History polyethylene glycoL 3350 [Miralax] 17 gm PO BID 12/04/20 12/04/20 History Allergies Allergy/AdvReac Type Severity Reaction Status Date / Time No Known Allergies Allergy Verified 12/04/20 17:00 Physical Exam Vitals: Vital Signs Temp Pulse Pulse Resp BP BP Pulse Ox 12/05/20 04:00 97.7 F 110 H 16 86/58 95 12/05/20 00:40 108 H 16 12/04/20 23:06 97.9 F 108 H 16 110/77 99 12/04/20 22:22 108 H 20 96/69 95 12/04/20 20:54 97.9 F 107 H 20 95/62 98 12/04/20 19:35 109 H 20 105/67 100 12/04/20 18:23 112 H 20 98/68 100 12/04/20 17:30 113 H 20 94/62 100 12/04/20 17:00 111 H 20 84/69 99 12/04/20 15:56 97.4 F L 116 H 20 98/64 98 Intake and Output 12/04/20 12/05/20 12/05/20 22:59 06:59 14:59 Output Total 25 Balance -25 Output: Urine 25 Other: Weight 87.543 kg 87.543 kg - Constitutional General appearance: mild distress - EENT Eyes: EOMI, ENT: hearing grossly normal, normal oropharynx - Neck Neck: no lymphadenopathy Thyroid: bilateral: normal size - Respiratory Respiratory: bilateral: CTA - Cardiovascular Rhythm: regular Heart sounds: normal: S1, S2 - Gastrointestinal General gastrointestinal: normal bowel sounds, soft - Integumentary Integumentary: Jaundice - Neurologic Neurologic: EFREM - Musculoskeletal Musculoskeletal: generalized weakness, strength equal bilaterally - PsychiatricCOnfused, lethargic. Results CBC & Chem 7: 12/05/20 08:31 12/05/20 08:31 Labs: Abnormal Lab Results - Last 24 Hours (Table) 12/04/20 12/04/20 12/04/20 Range/Units 16:11 16:11 16:11 WBC 21.5 H (3.8-10.6) k/uL MCV 104.1 H (80.0-100.0) fL RDW 20.6 H (11.5-15.5) % Neutrophils # 18.0 H (1.3-7.7) k/uL Monocytes # 1.5 H (0-1.0) k/uL PT 14.1 H (9.0-12.0) sec INR 1.4 H (<1.2) Sodium 135 L (137-145) mmol/L Potassium 5.5 H (3.5-5.1) mmol/L Chloride 108 H (98-107) mmol/L Carbon Dioxide 11 L (22-30) mmol/L BUN 70 H (7-17) mg/dL Creatinine 3.78 H (0.52-1.04) mg/dL Plasma Lactic Acid Robi (0.7-2.0) mmol/L Calcium 6.5 L (8.4-10.2) mg/dL Total Bilirubin 2.9 H (0.2-1.3) mg/dL AST 634 H (14-36) U/L ALT 249 H (4-34) U/L Alkaline Phosphatase 820 H (38-126) U/L Troponin I (0.000-0.034) ng/mL Total Protein 5.8 L (6.3-8.2) g/dL Albumin 3.1 L (3.5-5.0) g/dL Urine Protein (Negative) Urine Bilirubin (Negative) Urine Mucus (None) /hpf 12/04/20 12/04/20 12/04/20 Range/Units 16:11 16:11 17:59 WBC (3.8-10.6) k/uL MCV (80.0-100.0) fL RDW (11.5-15.5) % Neutrophils # (1.3-7.7) k/uL Monocytes # (0-1.0) k/uL PT (9.0-12.0) sec INR (<1.2) Sodium (137-145) mmol/L Potassium (3.5-5.1) mmol/L Chloride (98-107) mmol/L Carbon Dioxide (22-30) mmol/L BUN (7-17) mg/dL Creatinine (0.52-1.04) mg/dL Plasma Lactic Acid Robi 2.4 H* (0.7-2.0) mmol/L Calcium (8.4-10.2) mg/dL Total Bilirubin (0.2-1.3) mg/dL AST (14-36) U/L ALT (4-34) U/L Alkaline Phosphatase (38-126) U/L Troponin I 0.269 H* (0.000-0.034) ng/mL Total Protein (6.3-8.2) g/dL Albumin (3.5-5.0) g/dL Urine Protein 2+ H (Negative) Urine Bilirubin 1+ H (Negative) Urine Mucus Rare H (None) /hpf 12/04/20 12/04/20 12/05/20 Range/Units 20:10 22:54 01:45 WBC (3.8-10.6) k/uL MCV (80.0-100.0) fL RDW (11.5-15.5) % Neutrophils # (1.3-7.7) k/uL Monocytes # (0-1.0) k/uL PT (9.0-12.0) sec INR (<1.2) Sodium (137-145) mmol/L Potassium (3.5-5.1) mmol/L Chloride (98-107) mmol/L Carbon Dioxide (22-30) mmol/L BUN (7-17) mg/dL Creatinine (0.52-1.04) mg/dL Plasma Lactic Acid Robi 2.3 H* (0.7-2.0) mmol/L Calcium (8.4-10.2) mg/dL Total Bilirubin (0.2-1.3) mg/dL AST (14-36) U/L ALT (4-34) U/L Alkaline Phosphatase (38-126) U/L Troponin I 0.414 H* 0.300 H* (0.000-0.034) ng/mL Total Protein (6.3-8.2) g/dL Albumin (3.5-5.0) g/dL Urine Protein (Negative) Urine Bilirubin (Negative) Urine Mucus (None) /hpf Assessment and Plan Plan: Assessment and Plan Plan: VQ scan report reviewed Chest x-ray: report reviewed MRI - abdomen: report reviewed Assessment and Plan Mental Status Changes: - Appears secondary to worsening hepatic encephalopathy - Lactulose - Acute respiratory failure - Recent Admission, treated for high clinical suspicion for pulmonary emboli, improved Breast cancer - Metastatic and possible prgression - Current treatment with Piqray on hold [place] to be progressive with progressed tumor markers and recent biopsy liver - Paracentesis determines positive malignt cells in ascites fluid Current Visit: Yes Status: Acute Code(s): C50.919 - MALIGNANT NEOPLASM OF UNSP SITE OF UNSPECIFIED FEMALE BREAST SNOMED Code(s): 691754866 Acute Renal Insuffiency: - Woresening - Metabolic Acidosis - Bicarb in IV hydration - Nephrology Increasing Liver Enzymes: - Worsening - Second to rapidly progressive cancer Hypocalcemia: - Supped - Check Ionized Long discussion with , patient and daughter who were at bedside today. We discussed the rapid progression of her metastatic cancer and the very critical poor overall prognostic appearance. The options of hospice/comfort measures versus salvage chemotherapy were given to patient, , and daughter today. The liklihood of response to salvage is unknown and minimal however it is an option. They are aware by treating at this time could at best stall the rapid progression and increase quantity of life, however it could also progress the unstable situation. We discussed code status and family agrees to DNR, which is appropriate. Treatment to be given with Taxol today. Close monitoring of coags and fibrinogen. Aggressive treatment of supplementation including electrolytes and treatment of acidosis. Lactulose added to assist in encephalopathy, greater than 30 minutes spent with family today and emotional support given PLAN: Aggressive supportive care during salvage therapy Family aware of the overall prognosis as poor and understands the salvage risks and potential benefit. Add PRN pain meds Physician Attest: I have completed the full history and physical and agree with above dictation dictated as a ascribe
[2020-12-05] MEDS ORDERED: LORazepam 2 MG/ML INJ IV PRN (23:03)
[2020-12-05] MEDS ORDERED: CALCIUM GLUCONATE 2 GM in SODIUM CHLORIDE 0.9% 100 ML IVPB ONE (23:04)
[2020-12-05] MEDS ORDERED: SCOPOLAMINE 1.5MG/72HR PATCH TRANSDERM SCH (23:15)
[2020-12-06 00:20] LABS: Glucose,Whole Blood 114 mg/dL (75-99)
[2020-12-06] MEDS: SODIUM CHLORIDE 0.9% 250 ML IV SCH ×3 (00:20→00:22)
[2020-12-06] MEDS: LACTULOSE 20 GM/30 ML CUP PO SCH ×2 (00:23→08:46)
[2020-12-06] MEDS: APIXABAN 5 MG TAB PO SCH ×2 (00:23→08:46)
[2020-12-06] MEDS: PIPERACILLIN-TAZOBACTAM 3.375 GM in SODIUM CHLORIDE 0.9% 100 ML IVPB SCH ×2 (00:34→08:50)
[2020-12-06] MEDS: DEXTROSE 5% IN WATER 1,000 ML with SODIUM BICARB (1 MEQ/ML) 150 ML IV SCH ×2 (00:37→05:01)
[2020-12-06] MEDS: HYDROmorphone 0.5 MG/0.5 ML SYRINGE IVP PRN ×2 (02:05→10:53)
[2020-12-06 05:53] VITALS: BP 122/82; PULSE 113; TEMP 97.7
[2020-12-06 05:54] VITALS: RESP 20
[2020-12-06 07:07] LABS: Ionized Calcium 3.9 mg/dL (4.5-5.3)
[2020-12-06 07:15] LABS: Anisocytosis Moderate; HCT 34.3 % (34.0-46.0); HGB 10.8 gm/dL (11.4-16.0); Hypochromasia Slight; MCH 33.3 pg (25.0-35.0); MCHC 31.5 g/dL (31.0-37.0); MCV 105.6 fL (80.0-100.0); Macrocytosis Marked; Mean Platelet Volume 10.1; Platelet Count 303 k/uL (150-450); Poikilocytosis Slight; RBC 3.25 m/uL (3.80-5.40); RDW 22.4 % (11.5-15.5)
[2020-12-06 07:32] LABS: INR 1.3 (<1.2)
[2020-12-06 07:33] LABS: Partial Thromboplastin Time 27.7 sec (22.0-30.0); Prothrombin Time 13.7 sec (9.0-12.0)
[2020-12-06] MEDS: MIDODRINE 5 MG TAB PO SCH ×2 (08:46→11:55)
[2020-12-06] MEDS: SENNOSIDES-DOCUSATE SODIUM 1 EACH TAB PO SCH (08:47)
[2020-12-06] MEDS: VENLAFAXINE HCL ER 75 MG CAP PO SCH (08:47)
[2020-12-06] MEDS ORDERED: allopurinoL 100 MG TAB PO SCH (09:00)
[2020-12-06] MEDS ORDERED: PANTOPRAZOLE 40 MG/10 ML VIAL IVP SCH (09:00)
[2020-12-06 09:02] LABS: Neutrophils % (M) 96 %; Nucleated Red Blood Cells 3 /100 WBC (0-0); Total Cells Counted 200
[2020-12-06 09:03] LABS: Howell-Jolly Bodies Present; Lymphocytes # (M) 0.37 k/uL (1.0-4.8); Monocytes # (M) 0.55 k/uL (0-1.0); Neutrophils # (M) 17.57 k/uL (1.3-7.7); Target Cells Present; WBC 18.3 k/uL (3.8-10.6)
--- NOTE | 2020-12-06 09:07 | P.PN ---
Subjective Progress Note Date: 12/06/20 Principal diagnosis: Breast cancer Patient was able to make some urine last night. Patient was made DO NOT RESUSCITATE. Family debating whether to try one dose of IV chemotherapy. Objective - Vital Signs Vital signs: Vital Signs Temp 97.7 F 12/06/20 05:30 Pulse 113 H 12/06/20 05:30 Resp 20 12/06/20 05:53 BP 122/82 12/06/20 05:30 Pulse Ox 94 L 12/06/20 05:53 Intake & Output 12/05/20 12/06/20 12/06/20 18:59 06:59 18:59 Intake Total 1350 Output Total 0 200 Balance 0 1150 Weight 87.543 kg Intake: Intake, IV Titration 1350 Amount Calcium Gluconate 2 gm In 100 Sodium Chloride 0.9% 100 ml @ 100 mls/hr IVPB ONCE ONE Rx#:[id number] Dexamethasone Sod 50 Phosphate 20 mg In Dextrose 5% in Water 50 ml @ 100 mls/hr IV ONCE ONE Rx#:[id number] Dextrose 5% in Water 1, 1100 000 ml @ 100 mls/hr IV . [id number] LIO with Sodium Bicarb (1 Meq/ml) 150 ml Rx#:[id number] Piperacillin-Tazobactam 3 100 .375 gm In Sodium Chloride 0.9% 100 ml @ 25 mls/hr IVPB Q12HR LIO Rx #:[id number] Output: Urine 0 200 Other: Voiding Method Indwelling Catheter Indwelling Catheter - Exam Abdomen: Soft, distended, mild tenderness - Labs CBC & Chem 7: 12/06/20 06:38 12/05/20 08:31 Labs: Abnormal Lab Results - Last 24 Hours (Table) 12/05/20 12/05/20 12/05/20 Range/Units 08:31 08:31 08:31 WBC 19.0 H (3.8-10.6) k/uL RBC 3.32 L (3.80-5.40) m/uL Hgb 10.9 L (11.4-16.0) gm/dL MCV 105.2 H (80.0-100.0) fL RDW 21.3 H (11.5-15.5) % Neutrophils # 16.6 H (1.3-7.7) k/uL Neutrophils # (Manual) (1.3-7.7) k/uL Lymphocytes # (Manual) (1.0-4.8) k/uL Monocytes # 1.1 H (0-1.0) k/uL Nucleated RBCs (0-0) /100 WBC Macrocytosis Marked A PT (9.0-12.0) sec INR (<1.2) Chloride 112 H (98-107) mmol/L Carbon Dioxide 11 L (22-30) mmol/L BUN 72 H (7-17) mg/dL Creatinine 4.03 H (0.52-1.04) mg/dL POC Glucose (mg/dL) (75-99) mg/dL Calcium 5.6 L* (8.4-10.2) mg/dL Ionized Calcium Kellee (4.5-5.3) mg/dL Total Bilirubin 2.0 H (0.2-1.3) mg/dL AST 509 H (14-36) U/L ALT 200 H (4-34) U/L Alkaline Phosphatase 652 H (38-126) U/L Total Protein 4.8 L (6.3-8.2) g/dL Albumin 2.4 L (3.5-5.0) g/dL Vitamin D 25-Hydroxy 23.9 L (30.0-100.0) ng/mL 12/05/20 12/06/20 12/06/20 Range/Units 21:05 00:17 06:38 WBC (3.8-10.6) k/uL RBC (3.80-5.40) m/uL Hgb (11.4-16.0) gm/dL MCV (80.0-100.0) fL RDW (11.5-15.5) % Neutrophils # (1.3-7.7) k/uL Neutrophils # (Manual) (1.3-7.7) k/uL Lymphocytes # (Manual) (1.0-4.8) k/uL Monocytes # (0-1.0) k/uL Nucleated RBCs (0-0) /100 WBC Macrocytosis PT 13.7 H (9.0-12.0) sec INR 1.3 H (<1.2) Chloride (98-107) mmol/L Carbon Dioxide (22-30) mmol/L BUN (7-17) mg/dL Creatinine (0.52-1.04) mg/dL POC Glucose (mg/dL) 114 H (75-99) mg/dL Calcium (8.4-10.2) mg/dL Ionized Calcium Kellee 3.3 L* (4.5-5.3) mg/dL Total Bilirubin (0.2-1.3) mg/dL AST (14-36) U/L ALT (4-34) U/L Alkaline Phosphatase (38-126) U/L Total Protein (6.3-8.2) g/dL Albumin (3.5-5.0) g/dL Vitamin D 25-Hydroxy (30.0-100.0) ng/mL 12/06/20 12/06/20 Range/Units 06:38 06:38 WBC 18.3 H (3.8-10.6) k/uL RBC 3.25 L (3.80-5.40) m/uL Hgb 10.8 L (11.4-16.0) gm/dL MCV 105.6 H (80.0-100.0) fL RDW 22.4 H (11.5-15.5) % Neutrophils # (1.3-7.7) k/uL Neutrophils # (Manual) 17.57 H (1.3-7.7) k/uL Lymphocytes # (Manual) 0.37 L (1.0-4.8) k/uL Monocytes # (0-1.0) k/uL Nucleated RBCs 3 H (0-0) /100 WBC Macrocytosis Marked A PT (9.0-12.0) sec INR (<1.2) Chloride (98-107) mmol/L Carbon Dioxide (22-30) mmol/L BUN (7-17) mg/dL Creatinine (0.52-1.04) mg/dL POC Glucose (mg/dL) (75-99) mg/dL Calcium (8.4-10.2) mg/dL Ionized Calcium Kellee 3.9 L (4.5-5.3) mg/dL Total Bilirubin (0.2-1.3) mg/dL AST (14-36) U/L ALT (4-34) U/L Alkaline Phosphatase (38-126) U/L Total Protein (6.3-8.2) g/dL Albumin (3.5-5.0) g/dL Vitamin D 25-Hydroxy (30.0-100.0) ng/mL Microbiology - Last 24 Hours (Table) 12/04/20 18:12 Blood Culture - Preliminary Blood No Growth after 24 hours 12/04/20 18:12 Blood Culture - Preliminary Blood No Growth after 24 hours Assessment and Plan (1) Metastatic breast cancer Narrative/Plan: Patient's condition has not improved dramatically. She is making some urine however. Family debating whether to move forward or make the patient hospice. I will sign off at this point is the patient's family is not interested in Port-A-Cath placement at this time and I do not think she is a surgical candidate currently. Please reconsult and we can schedule if needed. Current Visit: Yes Status: Acute Code(s): C50.919 - MALIGNANT NEOPLASM OF UNSP SITE OF UNSPECIFIED FEMALE BREAST SNOMED Code(s): 119604674
[2020-12-06 10:43] LABS: ALT 193 U/L (4-34); AST 496 U/L (14-36); African American GFR (CKD) 12 (>60 ml/min/1.73 sqM); Albumin 2.7 g/dL (3.5-5.0); Albumin/Globulin Ratio 1.1; Alkaline Phosphatase 690 U/L (38-126); Anion Gap 15 mmol/L; Blood Urea Nitrogen 79 mg/dL (7-17); Calcium 6.8 mg/dL (8.4-10.2); Carbon Dioxide 15 mmol/L (22-30); Chloride 108 mmol/L (98-107); Globulin 2.4 g/dL; Glucose 183 mg/dL (74-99); Non-African American GFR(CKD) 10 (>60 ml/min/1.73 sqM); Potassium 4.7 mmol/L (3.5-5.1); Sodium 138 mmol/L (137-145); Total Bilirubin 2.3 mg/dL (0.2-1.3); Total Protein 5.1 g/dL (6.3-8.2)
[2020-12-06] MEDS ORDERED: HYDROmorphone 1 MG/ML 1 ML SYRINGE IVP PRN (10:47)
[2020-12-06] MEDS ORDERED: HYDROmorphone 0.5 MG/0.5 ML SYRINGE IVP PRN (11:09)
--- NOTE | 2020-12-06 11:29 | P.PN ---
Subjective Progress Note Date: 12/06/20 Principal diagnosis: Liver failure Septic shock Renal failure Metastatic breast cancer Patient continues to be lethargic and minimally responsive. Spontaneously opens eyes. Minimal urine output after [place] was adjusted overnight. Due to hypotensive episode chemotherapy was not started. Objective - Vital Signs Vital signs: Vital Signs Temp 97.7 F 12/06/20 05:30 Pulse 113 H 12/06/20 05:30 Resp 20 12/06/20 05:53 BP 122/82 12/06/20 05:30 Pulse Ox 94 L 12/06/20 05:53 Intake & Output 12/05/20 12/06/20 12/06/20 18:59 06:59 18:59 Intake Total 1350 Output Total 0 200 Balance 0 1150 Weight 87.543 kg Intake: Intake, IV Titration 1350 Amount Calcium Gluconate 2 gm In 100 Sodium Chloride 0.9% 100 ml @ 100 mls/hr IVPB ONCE ONE Rx#:[id number] Dexamethasone Sod 50 Phosphate 20 mg In Dextrose 5% in Water 50 ml @ 100 mls/hr IV ONCE ONE Rx#:[id number] Dextrose 5% in Water 1, 1100 000 ml @ 100 mls/hr IV . [id number] LIO with Sodium Bicarb (1 Meq/ml) 150 ml Rx#:[id number] Piperacillin-Tazobactam 3 100 .375 gm In Sodium Chloride 0.9% 100 ml @ 25 mls/hr IVPB Q12HR LIO Rx #:[id number] Output: Urine 0 200 Other: Voiding Method Indwelling Catheter Indwelling Catheter Indwelling Catheter - Exam Gen.: No acute distress. HEENT: No scleral icterus. Neck: Supple. Lungs: No respiratory distress. Heart: Regular rate. Abdomen: Distended. MSK: No obvious of her extremity deformities. Neuro: Lethargic. Minimally responsive. Spontaneously opens eyes at times. Skin: No jaundice. - Labs CBC & Chem 7: 12/06/20 06:38 12/06/20 06:38 Labs: Abnormal Lab Results - Last 24 Hours (Table) 12/05/20 12/05/20 12/06/20 Range/Units 08:31 21:05 00:17 WBC (3.8-10.6) k/uL RBC (3.80-5.40) m/uL Hgb (11.4-16.0) gm/dL MCV (80.0-100.0) fL RDW (11.5-15.5) % Neutrophils # (Manual) (1.3-7.7) k/uL Lymphocytes # (Manual) (1.0-4.8) k/uL Nucleated RBCs (0-0) /100 WBC Macrocytosis PT (9.0-12.0) sec INR (<1.2) Chloride (98-107) mmol/L Carbon Dioxide (22-30) mmol/L BUN (7-17) mg/dL Creatinine (0.52-1.04) mg/dL Glucose (74-99) mg/dL POC Glucose (mg/dL) 114 H (75-99) mg/dL Calcium (8.4-10.2) mg/dL Ionized Calcium Kellee 3.3 L* (4.5-5.3) mg/dL Total Bilirubin (0.2-1.3) mg/dL AST (14-36) U/L ALT (4-34) U/L Alkaline Phosphatase (38-126) U/L Total Protein (6.3-8.2) g/dL Albumin (3.5-5.0) g/dL Vitamin D 25-Hydroxy 23.9 L (30.0-100.0) ng/mL 12/06/20 12/06/20 12/06/20 Range/Units 06:38 06:38 06:38 WBC 18.3 H (3.8-10.6) k/uL RBC 3.25 L (3.80-5.40) m/uL Hgb 10.8 L (11.4-16.0) gm/dL MCV 105.6 H (80.0-100.0) fL RDW 22.4 H (11.5-15.5) % Neutrophils # (Manual) 17.57 H (1.3-7.7) k/uL Lymphocytes # (Manual) 0.37 L (1.0-4.8) k/uL Nucleated RBCs 3 H (0-0) /100 WBC Macrocytosis Marked A PT 13.7 H (9.0-12.0) sec INR 1.3 H (<1.2) Chloride (98-107) mmol/L Carbon Dioxide (22-30) mmol/L BUN (7-17) mg/dL Creatinine (0.52-1.04) mg/dL Glucose (74-99) mg/dL POC Glucose (mg/dL) (75-99) mg/dL Calcium (8.4-10.2) mg/dL Ionized Calcium Kellee 3.9 L (4.5-5.3) mg/dL Total Bilirubin (0.2-1.3) mg/dL AST (14-36) U/L ALT (4-34) U/L Alkaline Phosphatase (38-126) U/L Total Protein (6.3-8.2) g/dL Albumin (3.5-5.0) g/dL Vitamin D 25-Hydroxy (30.0-100.0) ng/mL 12/06/20 Range/Units 06:38 WBC (3.8-10.6) k/uL RBC (3.80-5.40) m/uL Hgb (11.4-16.0) gm/dL MCV (80.0-100.0) fL RDW (11.5-15.5) % Neutrophils # (Manual) (1.3-7.7) k/uL Lymphocytes # (Manual) (1.0-4.8) k/uL Nucleated RBCs (0-0) /100 WBC Macrocytosis PT (9.0-12.0) sec INR (<1.2) Chloride 108 H (98-107) mmol/L Carbon Dioxide 15 L (22-30) mmol/L BUN 79 H (7-17) mg/dL Creatinine 4.36 H (0.52-1.04) mg/dL Glucose 183 H (74-99) mg/dL POC Glucose (mg/dL) (75-99) mg/dL Calcium 6.8 L (8.4-10.2) mg/dL Ionized Calcium Kellee (4.5-5.3) mg/dL Total Bilirubin 2.3 H (0.2-1.3) mg/dL AST 496 H (14-36) U/L ALT 193 H (4-34) U/L Alkaline Phosphatase 690 H (38-126) U/L Total Protein 5.1 L (6.3-8.2) g/dL Albumin 2.7 L (3.5-5.0) g/dL Vitamin D 25-Hydroxy (30.0-100.0) ng/mL Microbiology - Last 24 Hours (Table) 12/04/20 18:12 Blood Culture - Preliminary Blood No Growth after 24 hours 12/04/20 18:12 Blood Culture - Preliminary Blood No Growth after 24 hours Assessment and Plan Assessment: 1. Metastatic breast cancer 2. Liver failure 3. Kidney failure 4. Pain due to bone metastases 5. Minimal responsiveness Plan: Mrs. García is a very pleasant 65-year-old female with a long-standing history of breast cancer, recently found to have diffuse metastatic disease with significant liver and bone involvement, who is here for lethargy. Found to have liver and kidney failure. I did review the CT of the abdomen myself. The liver is almost entirely replaced by tumor. She has very minimal urine output. Chemotherapy was contemplated and discussed as the only option to potentially reverse this, however she had hypotensive episdoe and this was not yet started. I had a long discussion with the patient's and kids at bedside. She did receive Taxol in the neoadjuvant setting with minimal tumor shrinkage at that time. Also with fulminant liver failure due to liver involvement cancer as well as renal failure I doubt that chemotherapy will add significant amount of benefit. Benefit would be temporary. Family is debating whether or not to place the patient through more chemo for very minimal chance of improvement. I do agree that comfort care is very reasonable. She'll likely be appropriate for inpatient hospice in that setting. I doubt she would survive very long, most likely just a day or very few days. I discussed my concern with the patient's family. They did opt for comfort care at this point. We'll consult hospice and proceed with comfort measures only. Discussed with nursing staff in detail. All questions were answered. Time with Patient: Greater than 30 (Family meeting regarding goals of care and end of life care as well as discussion with nursing staff.)
--- NOTE | 2020-12-06 15:23 | P.DS ---
Providers Date of admission: 12/04/20 20:28 Attending physician: Tara Esquivel Consults: 12/04/20 20:31 Consult Physician Urgent Consulting Provider: [facility] Consult Reason/Comments: Elevated troponin Do you want consulting provider notified?: Yes Consult Physician Urgent Consulting Provider: Joe Diaz Consult Reason/Comments: Metastatic breast cancer Do you want consulting provider notified?: Yes Consult Physician Urgent Consulting Provider: Katy Inman Consult Reason/Comments: Acute renal failure Do you want consulting provider notified?: Yes 12/05/20 08:46 Consult Physician Routine Consulting Provider: Melvin Lin Consult Reason/Comments: elevated trops Do you want consulting provider notified?: Yes 12/05/20 10:05 Consult Physician Routine Consulting Provider: Carson Simon Consult Reason/Comments: port, scheduled for tuesday Do you want consulting provider notified?: Yes Primary care physician: [facility] Course: HISTORY OF PRESENT ILLNESS This is a 65-year-old female patient of Dr. Comer with past medical history of diabetes mellitus type 2, hypertension, hyperlipidemia, gastroesophageal reflux disease, recurrent depression breast cancer originally diagnosed in 2018 in remission but was recently found to have metastatic disease with bone and liver involvement and follows with Dr. Diaz . Patient was recently hospitalized and during that hospitalization she was treated for suspected pulmonary embolism and started on eliquis, acute kidney injury. She underwent a liver biopsy and paracentesis which came back positive for metastatic mammary adenocarcinoma. Patient was discharged home on November 26. She has had a follow-up appointment with oncology and was advised that she needed to start chemotherapy immediately. She was also seen by Dr. pedrozaotomy the office on Tuesday was having increasing weakness. Since Tuesday, patient has not been eating, drinking and not getting up. She is also had constipation and with medication changes, this has resolved. Family noticed that they're having a hard time waking her up and that her feet were turning blue and she was advised by oncology to come in the hospital. Patient was seen in the emergency center and was found to be afebrile, heart rate 116, blood pressure 98/64, pulse ox 90% on room air. EKG was sinus tachycardia at [address] changes. Chest x-ray showed no acute abnormality. Patient had episodes of diarrhea while in the emergency center and a stool was sent for C. difficile colitis which was negative. WBC 21.5, hemoglobin 12.9 and platelet count 299. Sodium 135, potassium 5.5, chloride 108, CO2 11, BUN 17 creatinine 3.78. Liver enzymes were elevated with total bilirubin 2.9, AST 634, ALT 249, alkaline phosphatase 820. Albumin 3.1. Lactic acid 2.4 urinalysis was negative for infection. Patient was admitted to the cardiac stepdown unit and consult in place with nephrology, cardiology and oncology. 12/06 Patient's family had a long discussion with oncology decided to switch to hospice. Patient's is noted to be confused and drowsy. She is unable to carry onconversation. Patient is noted to have poor urinary output and was hypotensive overnight therefore chemotherapy was not initiated. Patient has multiorgan failure secondary to metastatic breast cancer. Since patient has very minimal chances of improvement, family is agreeable to comfort care. Hospice care initiated REVIEW OF SYSTEMS Could not be obtained due to mental status PHYSICAL EXAMINATION Gen: This is a 65-year-old female. She is resting in bed, and daughter are at bedside. Patient is lethargic, open eyes on command but goes back to sleep HEENT: Head is atraumatic, normocephalic. Pupils equal, round. Sclerae is anicteric. NECK: Supple. No JVD. No lymphadenopathy. No thyromegaly. LUNGS: Clear to auscultation. rhonchi present . No intercostal retractions. HEART: Regular rate and rhythm. No murmur. ABDOMEN: Soft. Bowel sounds are present. No masses. dsitended EXTREMITIES: No pedal edema. No calf tenderness. Plantar surface of bilateral feet dusky. NEUROLOGICAL: Patient is lethargic. ASSESSMENT AND PLAN 1. Sepsis with septic shock of unclear etiology, rule out diverticulitis. hold Zosyn 3.375 g IV piggyback every 12 hours, switched to comfort care 2. Acute kidney injury secondary to poor oral intake. Consult with Dr. Storm lechuga. Avoid nephrotoxic agents and hypotension. hold bicarb drip hold midodrine 3. Metabolic acidosis secondary to acute kidney injury. off bicarb drip. 4. Elevated troponins. Cardiology signed off No complaints of chest pain. 5. Recent diagnosis of possible pulmonary embolism. Continue eliquis. 6. Hypocalcemia. Replacement today and monitor. 7. Breast cancer with metastatic disease to the bone and liver. poor quality of life with rapid progression of tumour comfort care recommeneded 8. Elevated liver function tests secondary to Metastatic disease to the liver. Continue fentanyl patch for pain control. 9. Ascites and elevated liver function tests status post paracentesis on 11/24 for 2.1 L of serous fluid. Fluid positive for adenocarcinoma. 10. Chronic anemia of chronic illness. Monitor. 11. Hypertension. Hold all blood pressure medications. 12. Chronic gout. hold allopurinol 300 mg daily. 13. Recent dental extraction, stable. 14. Hyperlipidemia. Hold statin. 15. Gastroesophageal reflux disease and GI prophylaxis. Continue Protonix 40 mg IV daily 16. Recurrent depression. Continue Effexor XR 75 mg daily. 17. DVT prophylaxis. Eliquis. Patient Condition at Discharge: Poor Plan - Discharge Summary Discharge Rx Participant: No New Discharge Prescriptions: No Action Lansoprazole [Prevacid] 15 mg PO DAILY allopurinoL [Zyloprim] 300 mg PO DAILY Venlafaxine HCl ER [Effexor XR] 75 mg PO DAILY lisinopriL [Zestril] 40 mg PO DAILY fentaNYL 25MCG/HR PATCH [Duragesic 25MCG/HR] 1 patch TRANSDERM Q72H Sennosides [Senna] 8.6 mg PO HS Apixaban [Eliquis Starter Pack (for VTE)] 5 mg PO BID polyethylene glycoL 3350 [Miralax] 17 gm PO BID Hydrocodone/Acetaminophen [[place] 7.5-325] 1 tab PO Q6HR PRN PRN Reason: Pain Discharge Medication List Lansoprazole [Prevacid] 15 mg PO DAILY 11/03/16 [History] Venlafaxine HCl ER [Effexor XR] 75 mg PO DAILY 11/03/16 [History] allopurinoL [Zyloprim] 300 mg PO DAILY 11/03/16 [History] lisinopriL [Zestril] 40 mg PO DAILY 12/05/18 [History] fentaNYL 25MCG/HR PATCH [Duragesic 25MCG/HR] 1 patch TRANSDERM Q72H 11/21/20 [History] Apixaban [Eliquis Starter Pack (for VTE)] 5 mg PO BID 12/04/20 [History] Hydrocodone/Acetaminophen [[place] 7.5-325] 1 tab PO Q6HR PRN 12/04/20 [History] Sennosides [Senna] 8.6 mg PO HS 12/04/20 [History] polyethylene glycoL 3350 [Miralax] 17 gm PO BID 12/04/20 [History] Follow up Appointment(s)/Referral(s): Fer Comer MD [Primary Care Provider] - 1-2 days Discharge Disposition: DISCH TO [facility]
[2020-12-06 17:02] LABS: African American GFR (CKD) 11.7 (60.0-200.0); Albumin/Globulin Ratio 1.5 (1.60-3.17); Calcium 6.8 mg/dL (8.7-10.3); Magnesium 1.5 mg/dL (1.5-2.4); Non-African American GFR(CKD) 10.1 (60.0-200.0); Potassium 4.7 mmol/L (3.5-5.5); Total Bilirubin 2.1 mg/dL (0.2-1.2); Uric Acid 4.5 mg/dL (2.9-7.7)
--- NOTE | 2020-12-09 08:50 | CDI ---
Documentation Clarification Form Date: 12/09/20 From: Tatiana Galindo Admit Date: 12/04/2020 08:28:00 PM Patient Name: Yuly García Visit Number: [id number] Discharge Date: 12/06/2020 01:01:00 PM ATTENTION: The Clinical Documentation Specialists (CDI) and [facility] Coding Staff appreciate your assistance in clarifying documentation. Please respond to the clarification below the line at the bottom and electronically sign. The CDI & [facility] Coding staff will review the response and follow-up if needed. Please note: Queries are made part of the Legal Health Record. If you have any questions, please contact the author of this message via ITS. Dr. Mendoza Abarca, Your patient has acute respiratory failure per Dr Stephens"s consult on 12/05. Based on this information and the findings below, is there an additional diagnosis that is clinically appropriate for this patient? History/Risk Factors: recent PE, sepsis w septic shock, ATN. ascites due to adenocarcinoma, liver & bone mets, hepatic encephalopathy Tobacco use: history of Home oxygen: none Clinical Indicators: Patient comes in today because anytime she moves she has increased difficulty breathing. According to EMS when she sits still she is about 95% on room air however if she moves at all her O2 sats drop. Vital signs: 12/04: T-97.4, P-116, R-20, BP-98/64, O2 SAT-98 (NC) 12/06: O2 SAT-87 (RA) & 94 (2lL) Lung/Breathing assessment: SON w activity, Treatment: CT of ABDPELV Continuous Pulse ox O2-2L NC Is there an additional diagnosis that is clinically appropriate for this patient? [x ] Acute Hypoxic Respiratory Failure (pO2 <60 mm Hg or SpO2 <91% on room air) [ ] Acute Hypercapnic Respiratory Failure (pCO2 >50 and pH <7.35) [ ] Other Diagnosis, please specify [ ] Unable to determine MTDD
== END 2020-12-06 13:01 | disposition hospice, inpatient (51) | DRG 871 ==
LOC: EC 15:39 → OBSVTOIN 20:28 → 3SCARD 20:28 → 5NMEDONC 12-05 18:56
PROVIDERS: ADMIT Family Medicine; ATTEND Family Medicine
PROC: 05HD33Z Insertion of Infusion Device into Right Cephalic Vein, Percutaneous Approach (ICD-10-PCS; principal; 2020-12-05 18:05)
DX: A41.9 Sepsis, unspecified organism (principal); R65.21 Severe sepsis with septic shock; N17.0 Acute kidney failure with tubular necrosis; J96.01 Acute respiratory failure with hypoxia; R18.0 Malignant ascites; E87.2 Acidosis; C79.51 Secondary malignant neoplasm of bone; C78.7 Secondary malignant neoplasm of liver and intrahepatic bile duct; F33.9 Major depressive disorder, recurrent, unspecified; E83.51 Hypocalcemia; D63.8 Anemia in other chronic diseases classified elsewhere; K72.90 Hepatic failure, unspecified without coma; E11.9 Type 2 diabetes mellitus without complications; Z66 Do not resuscitate; Z51.5 Encounter for palliative care; G89.3 Neoplasm related pain (acute) (chronic); I10 Essential (primary) hypertension; K21.9 Gastro-esophageal reflux disease without esophagitis; F41.9 Anxiety disorder, unspecified; E78.5 Hyperlipidemia, unspecified; M17.10 Unilateral primary osteoarthritis, unspecified knee; R19.7 Diarrhea, unspecified; K59.00 Constipation, unspecified; R77.8 Other specified abnormalities of plasma proteins; M1A.9XX0 Chronic gout, unspecified, without tophus (tophi); Z79.01 Long term (current) use of anticoagulants; Z79.891 Long term (current) use of opiate analgesic; Z79.899 Other long term (current) drug therapy; Z87.891 Personal history of nicotine dependence; Z85.3 Personal history of malignant neoplasm of breast; Z86.711 Personal history of pulmonary embolism; Z90.49 Acquired absence of other specified parts of digestive tract; Z87.19 Personal history of other diseases of the digestive system; Z90.710 Acquired absence of both cervix and uterus; Z87.42 Personal history of other diseases of the female genital tract; Z87.39 Personal history of other diseases of the musculoskeletal system and connective tissue; Z86.69 Personal history of other diseases of the nervous system and sense organs; Z90.12 Acquired absence of left breast and nipple; Z98.890 Other specified postprocedural states; Z82.49 Family history of ischemic heart disease and other diseases of the circulatory system
CPT/HCPCS: 36410; 36415; 71046; 74176; 76937; 80053; 81001; 82306; 82330; 82533; 83605; 83615; 83735; 83880; 84484; 84550; 85025; 85384; 85610; 85730; 87040; 87324; 93005; 93308; 96361; 96374; 99285

== ENCOUNTER 2020-12-06 12:00 | Inpatient (IN) | payer MEDICAID ==
[2020-12-06] MEDS ORDERED: HYDROmorphone 1 MG/ML 1 ML SYRINGE IVP PRN (12:19)
[2020-12-06] MEDS ORDERED: DRY MOUTH SPRAY 44.3 SPRAY/44.3 ML SPRAY MUCOUS MEM PRN (12:19)
[2020-12-06] MEDS ORDERED: ACETAMINOPHEN SUPPOSITORY 650 MG SUPP RECTAL PRN (12:19)
[2020-12-06] MEDS ORDERED: ATROPINE OPHTH SOLN 1% 5ML BTL SUBLINGUAL PRN (12:19)
[2020-12-06] MEDS ORDERED: ONDANSETRON 4 MG/2 ML VIAL IVP PRN (12:19)
[2020-12-06] MEDS: LORazepam 2 MG/ML INJ IV PRN ×2 (14:19→22:00)
--- NOTE | 2020-12-06 15:31 | P.HPIM ---
History of Present Illness H&P Date: 12/06/20 This is a 65-year-old female patient of Dr. Comer with past medical history of diabetes mellitus type 2, hypertension, hyperlipidemia, gastroesophageal reflux disease, recurrent depression breast cancer originally diagnosed in 2018 in remission but was recently found to have metastatic disease with bone and liver involvement and follows with Dr. Diaz . Patient was recently hospitalized and during that hospitalization she was treated for suspected pulmonary embolism and started on eliquis, acute kidney injury. She underwent a liver biopsy and paracentesis which came back positive for metastatic mammary adenocarcinoma. Patient was discharged home on November 26. She has had a follow-up appointment with oncology and was advised that she needed to start chemotherapy immediately. She was also seen by oncology the office on Tuesday was having increasing weakness. Patient has not been eating, drinking and not getting up. She is also had constipation and with medication changes, this has resolved. Family noticed that they're having a hard time waking her up and that her feet were turning blue and she was advised by oncology to come in the hospital. Patient was seen in the emergency center on and was found to be afebrile, heart rate 116, blood pressure 98/64, pulse ox 90% on room air. EKG was sinus tachycardia at [address] changes. Chest x-ray showed no acute abnormality. Patient had episodes of diarrhea while in the emergency center and a stool was sent for C. difficile colitis which was negative. WBC 21.5, hemoglobin 12.9 and platelet count 299. Sodium 135, potassium 5.5, chloride 108, CO2 11, BUN 17 creatinine 3.78. Liver enzymes were elevated with total bilirubin 2.9, AST 634, ALT 249, alkaline phosphatase 820. Albumin 3.1. Lactic acid 2.4 urinalysis was negative for infection. Patient was admitted to the cardiac stepdown unit and consult in place with nephrology, cardiology and oncology.Initial diagnosis of sepsis was made and patient was started on antibiotics though the source of sepsis was not . Known. Patient is having rapid progression of breast cancer with decreased urinary output. Nephrology evaluated the patient and did not think patient would be a good candidate for renal replacement therapy. Oncology has evaluated the patient and feels patient would not be able to tolerate chemotherapy due to low blood pressure and progressive worsening of mental status. Patient has multiple organ failure secondary to metastatic breast cancer with metastasis to peritoneal fluid. After long discussion with patient's family, family has opted for comfort care and hospice care is initiated. REVIEW OF SYSTEMS Could not be obtained due to mental status PHYSICAL EXAMINATION Gen: This is a 65-year-old female. She is resting in bed, and daughter are at bedside. Patient is lethargic, open eyes on command but goes back to sleep HEENT: Head is atraumatic, normocephalic. Pupils equal, round. Sclerae is anicteric. NECK: Supple. No JVD. No lymphadenopathy. No thyromegaly. LUNGS: Clear to auscultation. rhonchi present . No intercostal retractions. HEART: Regular rate and rhythm. No murmur. ABDOMEN: Soft. Bowel sounds are present. No masses. dsitended EXTREMITIES: No pedal edema. No calf tenderness. Plantar surface of bilateral feet dusky. NEUROLOGICAL: Patient is lethargic. ASSESSMENT AND PLAN 1. Sepsis with septic shock of unclear etiology, rule out diverticulitis. hold Zosyn 3.375 g IV piggyback every 12 hours, switched to comfort care 2. Acute kidney injury secondary to poor oral intake. Consult with Dr. Storm lechuga. Avoid nephrotoxic agents and hypotension. hold bicarb drip hold midodrine 3. Metabolic acidosis secondary to acute kidney injury. off bicarb drip. 4. Elevated troponins. Cardiology signed off No complaints of chest pain. 5. Recent diagnosis of possible pulmonary embolism. Continue eliquis. 6. Hypocalcemia. Replacement today and monitor. 7. Breast cancer with metastatic disease to the bone and liver. poor quality of life with rapid progression of tumour comfort care recommeneded 8. Elevated liver function tests secondary to Metastatic disease to the liver. Continue fentanyl patch for pain control. 9. Ascites and elevated liver function tests status post paracentesis on 11/24 for 2.1 L of serous fluid. Fluid positive for adenocarcinoma. 10. Chronic anemia of chronic illness. Monitor. 11. Hypertension. Hold all blood pressure medications. 12. Chronic gout. hold allopurinol 300 mg daily. 13. Recent dental extraction, stable. 14. Hyperlipidemia. Hold statin. 15. Gastroesophageal reflux disease and GI prophylaxis. Continue Protonix 40 mg IV daily 16. Recurrent depression. Continue Effexor XR 75 mg daily. 17. DVT prophylaxis. Eliquis Past Medical History Past Medical History: Cancer, Hyperlipidemia, Hypertension, Osteoarthritis (OA), Pulmonary Embolus (PE) Additional Past Medical History / Comment(s): left breast cancer with metastasis to spine,liver and abdominal cavaty, gout, arthritis in knee, suspected PE when IP last week, feet bluish on soles of aye feet-has call into Dr Diaz office at this time History of Any Multi-Drug Resistant Organisms: None Reported Past Surgical History: Breast Surgery, Cholecystectomy, Hysterectomy, Orthopedic Surgery Additional Past Surgical History / Comment(s): Left rotator cuff repair, knee arthroscopy(daughter unsure which), Right arm tendon release, Lasik eye surgery, Left breast lumpectomy 2016, paracentesis and biopsy of liver 11/25/2020 Past Anesthesia/Blood Transfusion Reactions: Postoperative Nausea & Vomiting (PONV) Past Psychological History: Anxiety, Depression Smoking Status: Former smoker Past Alcohol Use History: None Reported Additional Past Alcohol Use History / Comment(s): quit smoking 5-7 yrs ago, smoked for 40 yrs Past Drug Use History: None Reported - Past Family History Mother Family Medical History: No Reported History Medications and Allergies Home Medications Medication Instructions Recorded Confirmed Type Lansoprazole [Prevacid] 15 mg PO DAILY 11/03/16 12/06/20 History Venlafaxine HCl ER [Effexor XR] 75 mg PO DAILY 11/03/16 12/06/20 History allopurinoL [Zyloprim] 300 mg PO DAILY 11/03/16 12/06/20 History lisinopriL [Zestril] 40 mg PO DAILY 12/05/18 12/06/20 History fentaNYL 25MCG/HR PATCH [Duragesic 1 patch TRANSDERM Q72H 11/21/20 12/06/20 History 25MCG/HR] Apixaban [Eliquis Starter Pack 5 mg PO BID 12/04/20 12/06/20 History (for VTE)] Hydrocodone/Acetaminophen [[place] 1 tab PO Q6HR PRN 12/04/20 12/06/20 History 7.5-325] Sennosides [Senna] 8.6 mg PO HS 12/04/20 12/06/20 History polyethylene glycoL 3350 [Miralax] 17 gm PO BID 12/04/20 12/06/20 History Allergies Allergy/AdvReac Type Severity Reaction Status Date / Time No Known Allergies Allergy Verified 12/06/20 13:46 Physical Exam Vitals: Intake and Output 12/06/20 12/06/20 12/06/20 06:59 14:59 22:59 Other: Voiding Method Indwelling Catheter Weight 87.5 kg Thrombosis Risk Factor Assmnt - Choose All That Apply Each Factor Represents 1 point: Obesity (BMI >25) Each Risk Factor Represents 2 Points: Age 61-74 years, Malignancy Thrombosis Risk Factor Assessment Total Risk Factor Score: 5 Thrombosis Risk Factor Assessment Level: High Risk
[2020-12-06] MEDS: MORPHINE SULFATE (100 MG/2 ML) 100 MG in SODIUM CHLORIDE 0.9% 100 ML IV SCH (22:31)
[2020-12-07] MEDS: LORazepam 2 MG/ML INJ IV PRN ×3 (08:45→21:06)
[2020-12-07] MEDS: LORazepam 2 MG/ML INJ IV SCH ×3 (11:40→23:58)
--- NOTE | 2020-12-07 15:19 | P.PN ---
Subjective Progress Note Date: 12/07/20 This is a 65-year-old female patient of Dr. Comer with past medical history of diabetes mellitus type 2, hypertension, hyperlipidemia, gastroesophageal reflux disease, recurrent depression breast cancer originally diagnosed in 2018 in remission but was recently found to have metastatic disease with bone and liver involvement and follows with Dr. Diaz . Patient was recently hospitalized and during that hospitalization she was treated for suspected pulmonary embolism and started on eliquis, acute kidney injury. She underwent a liver biopsy and paracentesis which came back positive for metastatic mammary adenocarcinoma. Patient was discharged home on November 26. She has had a follow-up appointment with oncology and was advised that she needed to start chemotherapy immediately. She was also seen by oncology the office on Tuesday was having increasing weakness. Patient has not been eating, drinking and not getting up. She is also had constipation and with medication changes, this has resolved. Family noticed that they're having a hard time waking her up and that her feet were turning blue and she was advised by oncology to come in the hospital. Patient was seen in the emergency center on and was found to be afebrile, heart rate 116, blood pressure 98/64, pulse ox 90% on room air. EKG was sinus tachycardia at [address] changes. Chest x-ray showed no acute abnormality. Patient had episodes of diarrhea while in the emergency center and a stool was sent for C. difficile colitis which was negative. WBC 21.5, hemoglobin 12.9 and platelet count 299. Sodium 135, potassium 5.5, chloride 108, CO2 11, BUN 17 creatinine 3.78. Liver enzymes were elevated with total bilirubin 2.9, AST 634, ALT 249, alkaline phosphatase 820. Albumin 3.1. Lactic acid 2.4 urinalysis was negative for infection. Patient was admitted to the cardiac stepdown unit and consult in place with nephrology, cardiology and oncology.Initial diagnosis of sepsis was made and patient was started on antibiotics though the source of sepsis was not . Known. Patient is having rapid progression of breast cancer with decreased urinary output. Nephrology evaluated the patient and did not think patient would be a good candidate for renal replacement therapy. Oncology has evaluated the patient and feels patient would not be able to tolerate chemotherapy due to low blood pressure and progressive worsening of mental status. Patient has multiple organ failure secondary to metastatic breast cancer with metastasis to peritoneal fluid. After long discussion with patient's family, family has opted for comfort care and hospice care is initiated. 12/07 patient appears comfortable in the bed. Detailed discussion with the family was made. Family is concerned about patient having startling episode after a few hours. Ativan 1 mg initiated as a scheduled dose every 6 hour along with morphine drip. Patient appears comfortable with adjustment of medication. All questions answered for the family. REVIEW OF SYSTEMS Could not be obtained due to mental status PHYSICAL EXAMINATION Gen: This is a 65-year-old female. She is resting in bed, and daughter are at bedside. Patient is lethargic, resting comfortably HEENT: Head is atraumatic, normocephalic. Sclera anicteric NECK: Supple. LUNGS: No intercostal retractions. HEART: Regular rate and rhythm. . ABDOMEN: Soft. Bowel sounds are present. No masses. dsitended EXTREMITIES: No pedal edema. No calf tenderness. Plantar surface of bilateral feet dusky. NEUROLOGICAL: Patient is lethargic. ASSESSMENT AND PLAN 1. Sepsis with septic shock of unclear etiology, rule out diverticulitis. hold Zosyn 3.375 g IV piggyback every 12 hours, switched to comfort care 2. Acute kidney injury secondary to poor oral intake. Consult with Dr. Storm lechuga. Avoid nephrotoxic agents and hypotension. hold bicarb drip hold midodrine 3. Metabolic acidosis secondary to acute kidney injury. off bicarb drip. 4. Elevated troponins. Cardiology signed off No complaints of chest pain. 5. Recent diagnosis of possible pulmonary embolism. Hold eliquis. 6. Hypocalcemia. Replacement today and monitor. 7. Breast cancer with metastatic disease to the bone and liver. poor quality of life with rapid progression of tumour comfort care recommeneded 8. Elevated liver function tests secondary to Metastatic disease to the liver. 9. Ascites and elevated liver function tests status post paracentesis on 11/24 for 2.1 L of serous fluid. Fluid positive for adenocarcinoma. 10. Chronic anemia of chronic illness. Monitor. 11. Hypertension. Hold all blood pressure medications. 12. Chronic gout. hold allopurinol 300 mg daily. 13. Recent dental extraction, stable. 14. Hyperlipidemia. Hold statin. 15. Gastroesophageal reflux disease and GI prophylaxis. Continue Protonix 40 mg IV daily 16. Recurrent depression. Continue Effexor XR 75 mg daily. Disposition patient is on inpatient hospice care Objective - Vital Signs Vital signs: Intake & Output 12/06/20 12/07/20 12/07/20 18:59 06:59 18:59 Intake Total 240 6 16.306 Output Total 400 400 Balance -160 -394 16.306 Weight 87.5 kg Intake: IV 240 iv fluids 240 Intake, IV Titration 6 16.306 Amount Morphine Sulfate (100 mg/ 6 16.306 2 ml) 100 mg In Sodium Chloride 0.9% 100 ml @ Titrate IV .Q0M [facility] Rx#: [id number] Oral 0 Output: Urine 400 400 Other: Voiding Method Indwelling Catheter Indwelling Catheter Indwelling Catheter
[2020-12-08] MEDS: LORazepam 2 MG/ML INJ IV PRN ×2 (03:12→09:10)
[2020-12-08] MEDS: MORPHINE SULFATE (100 MG/2 ML) 100 MG in SODIUM CHLORIDE 0.9% 100 ML IV SCH ×2 (03:25→14:46)
[2020-12-08] MEDS: LORazepam 2 MG/ML INJ IV SCH ×2 (05:59→12:01)
[2020-12-08] MEDS ORDERED: SCOPOLAMINE 1.5MG/72HR PATCH TRANSDERM SCH (23:00)
== END 2020-12-08 19:48 | disposition expired | DRG 951 ==
LOC: 5NMEDONC 13:05
PROVIDERS: ADMIT Internal Medicine; ATTEND Internal Medicine
DX: Z51.5 Encounter for palliative care (principal); A41.9 Sepsis, unspecified organism; R65.21 Severe sepsis with septic shock; C78.7 Secondary malignant neoplasm of liver and intrahepatic bile duct; C78.6 Secondary malignant neoplasm of retroperitoneum and peritoneum; N17.9 Acute kidney failure, unspecified; E87.2 Acidosis; R18.8 Other ascites; F33.9 Major depressive disorder, recurrent, unspecified; C79.51 Secondary malignant neoplasm of bone; E78.5 Hyperlipidemia, unspecified; E11.9 Type 2 diabetes mellitus without complications; K21.9 Gastro-esophageal reflux disease without esophagitis; Z86.711 Personal history of pulmonary embolism; C50.919 Malignant neoplasm of unspecified site of unspecified female breast; R77.8 Other specified abnormalities of plasma proteins; E83.51 Hypocalcemia; Z66 Do not resuscitate; D63.8 Anemia in other chronic diseases classified elsewhere; M1A.9XX0 Chronic gout, unspecified, without tophus (tophi); I10 Essential (primary) hypertension; Z87.891 Personal history of nicotine dependence; M17.10 Unilateral primary osteoarthritis, unspecified knee; F41.9 Anxiety disorder, unspecified; Z79.01 Long term (current) use of anticoagulants; Z90.710 Acquired absence of both cervix and uterus; Z79.899 Other long term (current) drug therapy